=== PATIENT | male | born 1945 | race Caucasian/White ===

== ENCOUNTER → 2016-10-23 | Outpatient (CLI) | payer OTHER ==
[~2016-10-23] MED LIST: AMOX500C3 PO; ASPCH81X PO; ATOR-24 PO; CLOP1TAB15 PO; ERGO500037 PO; LSN/20125 PO; SIMV40TA2 PO
--- NOTE | 2016-10-23 17:11 | DIAGNOSTIC IMAGING REPORT ---
MRI OF THE LUMBAR SPINE WITHOUT IV CONTRAST CLINICAL HISTORY: Chronic low back pain with bilateral lower extremity radiculopathy. COMPARISON STUDY: CT angiogram of the abdomen and pelvis dated 12/29/2011. TECHNIQUE: MRI of the lumbar spine is performed utilizing various T1 and T2-weighted sequences in the axial and sagittal planes. IV contrast was not administered for this examination. FINDINGS: Lumbar spine: Vertebral body height is maintained throughout the lumbar spine. Marrow signal intensity is heterogeneous. Chronic degenerative endplate change is seen at all lumbar levels. There is mild degenerative endplate edema seen at L5-S1. There is minimal anterolisthesis at L4-L5 and minimal retrolisthesis at L5-S1. There is straightening of the lumbar lordosis. Small anterior osteophytes are noted throughout. The transverse and spinous processes appear intact. There is no evidence of spondylolysis. No destructive bony lesion is clearly seen. A small hemangioma is suggested in the body of L3. Intervertebral discs: There is degenerative disc desiccation throughout the lumbar spine. Advanced loss of height is seen at L5-S1. Mild to moderate loss of height is seen at the remaining lumbar levels. Spinal cord: The visualized spinal cord is normal in morphology and signal intensity. The conus medullaris terminates at the level of L1. There is severe tethering of the nerve roots of the cauda equina at L3-L4 and L4-L5. Fatty filum is incidentally noted. L1-L2: There is a posterior disc bulge. In conjunction with hypertrophy of the ligamentum flavum, this causes minimal acquired compromise of the central canal. The minimum AP diameter at this level measures 8.5 mm. There is bilateral subarticular stenosis. Facet arthropathy causes minimal bilateral neural foraminal stenosis. L2-L3: There is minimal posterior disc bulge eccentric to the left. In conjunction with hypertrophy of the ligamentum flavum, there is minimal acquired compromise of the central canal at this level with a minimum AP diameter of 8.5 mm. There is bilateral subarticular stenosis, left greater than right. There is likely impingement on the exiting left L2 nerve root. The neural foramina appear clear. L3-L4: There is posterior disc bulge and annular fissure. In conjunction with hypertrophy of the ligamentum flavum, this causes severe central canal stenosis at this level. The minimum AP canal diameter measures 4 mm. There is severe bilateral subarticular stenosis, with probable impingement on the exiting bilateral L3 and the transiting lumbar nerve roots. The cauda equina is tethered. There is mild to moderate neural foraminal stenosis secondary to facet arthropathy at this level. L4-L5: There is posterior disc bulge with annular fissure. In conjunction with hypertrophy of the ligamentum flavum, there is severe acquired compromise of the central canal at this level. The minimum AP diameter measures 4 mm. There is severe bilateral subarticular stenosis with impingement on the exiting bilateral L4 and the transiting bilateral nerve roots. The cauda equina is tethered at this level. There is mild neural foraminal stenosis secondary to facet arthropathy. L5-S1: There is minimal posterior disc bulge. There is no significant acquired compromise of the central canal at this level. There is bilateral subarticular stenosis, left greater than right, with possible impingement on the exiting bilateral nerve roots. Facet arthropathy causes moderate bilateral neural foraminal stenosis. Sacrum: Heterogeneous marrow signal intensity is noted throughout the sacrum. There is marrow edema identified within the sacral alae bilaterally. Insufficiency fractures are not excluded. Soft tissues: There is mild fatty atrophy of the paraspinous musculature. There is an infrarenal abdominal aortic aneurysm which measures up to 3.7 cm. This is likely similar to the 2012 CT angiogram of the abdomen and pelvis noting differences in technique. The partially imaged kidneys demonstrate cortical atrophy. IMPRESSION: 1. Multilevel lumbosacral spondylosis as detailed above. There is severe compromise of the central canal at L3-L4 and L4-L5 with tethering of the cauda equina at these levels. 2. See discussion for detailed [id number] analysis. 3. There is nonspecific marrow edema present within the sacral alae bilaterally. Insufficiency fractures are not excluded. Clinical correlation will be required. 4. An infrarenal abdominal aortic aneurysm measures at least 3.7 cm. This is likely similar to the 2012 CT angiogram of the abdomen and pelvis. 5. Additional changes as above. Dictated: 10/23/2016 4:18 PM Transcribed: 10/23/2016 5:10 PM [email or web address] Electronically signed by: Aj Wilson M.D. 10/23/2016 5:13 PM Dictated Date/Time: 10/23/2016 4:18 PM
== END | disposition home or self-care (01) ==
LOC: C.MRIBC 14:49
PROVIDERS: ATTEND Physician Assistant Medical
DX: M47.27 Other spondylosis with radiculopathy, lumbosacral region (principal); I71.4 Abdominal aortic aneurysm, without rupture

== ENCOUNTER 2017-06-17 11:16 | Observation (INO) | payer OTHER ==
[2017-05-28 13:15] VITALS: BMI 31.0
--- NOTE | 2017-05-28 13:40 | PAT Medication Instructions ---
Service Date May 28, 2017. Current Home Medication List Amoxicillin (Amoxil), 2,000 MG PO UD Aspirin (Aspirin Chewable), 81 MG PO QAM Atorvastatin (Lipitor), 40 MG PO QAM Clopidogrel (Plavix), 75 MG PO QPM Ergocalciferol (Vitamin D 78650 Unit), 50,000 UNIT PO MON Hctz/Lisinopril (Zestoretic 20MG/12.5MG), 1 TAB PO HS Medication Instructions For Your Scheduled Surgery Amoxicillin (Amoxil), 2,000 MG PO UD (prior to dental procedures) Ergocalciferol (Vitamin D 63945 Unit), 50,000 UNIT PO MON (continue as directed) - Check surgeon and vascular for instructions: Clopidogrel (Plavix), 75 MG PO QPM - Hold the following medications 24 hours prior to surgery: Hctz/Lisinopril (Zestoretic 20MG/12.5MG), 1 TAB PO HS - Take the following medications the morning of surgery with a sip of water: Atorvastatin (Lipitor), 40 MG PO QAM Aspirin (Aspirin Chewable), 81 MG PO QAM (okay to continue per surgeon) If you have any questions please call us at [phone] or [phone] or [phone]
--- NOTE | 2017-05-28 14:40 | DIAGNOSTIC IMAGING REPORT ---
CHEST 2 VIEWS ROUTINE HISTORY: 71 years-old Male pat preoperative exam. No acute chest complaints. COMPARISON: Chest CT 05/29/2016 TECHNIQUE: Frontal and lateral views of the chest FINDINGS: Moderate right hemidiaphragm elevation redemonstrated. Linear subsegmental opacities of the lung bases are unchanged suggesting areas of scarring/atelectasis. There is atherosclerosis of the aorta. No pneumothorax, pleural effusion or focal airspace consolidation. Reverse right shoulder arthroplasty noted. Endplate spurring is seen throughout the spine. IMPRESSION: No acute cardiopulmonary process. The above report was generated using voice recognition software. It may contain grammatical, syntax or spelling errors. Electronically signed by: Eber Bradshaw M.D. 05/28/2017 2:39 PM Dictated Date/Time: 05/28/2017 2:38 PM
[2017-05-28 14:49] LABS: BASO % 0.4 %; BASO ABS # 0.03 K/uL (0-0.2); COMPLETE YES; EOS % 2.5 %; HEMATOCRIT 43.9 % (42-52); IG% 0.3 %; LYMPH % 27.1 %; LYMPH ABS # 1.97 K/uL (1.2-3.4); MEAN CELL VOLUME 96.9 fL (80-100); MEAN CORPUSCULAR HEMOGLOBIN 32.5 pg (25-34); MEAN CORPUSCULAR HGB CONC 33.5 g/dl (32-36); MEAN PLATELET VOLUME 9.3 fL (7.4-10.4); MONO % 11.8 %; NEUT % 57.9 %; PLATELET COUNT 231 K/uL (130-400); RED BLOOD COUNT 4.53 M/uL (4.7-6.1); WHITE BLOOD COUNT 7.27 K/uL (4.8-10.8)
[2017-05-28 15:00] LABS: URINE APPEARANCE CLEAR (CLEAR); URINE BILIRUBIN NEG (NEG); URINE COLOR YELLOW; URINE NITRITE NEG (NEG); URINE PH 6.5 (4.5-7.5); URINE SPECIFIC GRAVITY 1.014 (1.000-1.030); UROBILINOGEN NEG (NEG)
[2017-05-28 15:01] LABS: PROTHROMBIN TIME (PATIENT) 11.2 SECONDS (9.0-12.0)
[2017-05-28 15:11] LABS: MANUAL MICROSCOPIC REQUIRED? NO; REVIEW REQ? NO
[2017-05-28 15:19] LABS: BUN/CREATININE RATIO 14.5 (10-20); CALCIUM 9.2 mg/dl (8.5-10.1); CREATININE 1.45 mg/dl (0.60-1.40); POTASSIUM 4.8 mmol/L (3.5-5.1)
--- NOTE | 2017-06-16 16:19 | HISTORY & PHYSICAL EXAMINATION ---
DATE OF ADMISSION: 06/17/2017 CHIEF COMPLAINT: He presents within intermittent low back pain, quadriceps pain with walking. PAST MEDICAL HISTORY: Hyperlipidemia and hypertension. PAST SURGICAL HISTORY: He has had bilateral shoulder surgery. ALLERGIES: He has no known drug allergies. CURRENT MEDICATIONS: Include Plavix, medication for cholesterol, blood pressure medication which are not listed. FAMILY MEDICAL HISTORY: Positive for heart disease, stroke, diabetes. SOCIAL HISTORY: He is , 1-2 drinks a day. No tobacco use. Moderately active lifestyle. REVIEW OF SYSTEMS: MUSCULOSKELETAL: Joint pain, muscle pain. ____ for bruising or bleeding. PHYSICAL EXAMINATION: He ambulates independently without any difficulty. He has no pain with straight leg raises bilaterally. He has blunted decreased reflexes of the knee jerk and Achilles reflexes bilaterally. Adequate sensation. No upper motor neuron issues. No clonus was noted in lower extremities. IMAGING: MRI shows significant spinal stenosis, likely congenital from L3 down S1. He has appropriate lordosis. No spondylolisthesis or spondylolisthesis noted. ASSESSMENT AND DIAGNOSES: Significant lumbar stenosis L3-S1. PLAN: At this time, we preoped him for laminectomy L3-L5. We discussed the surgery in detail. We discussed recovery time, risks and benefits. We did provide him with a lumbar back brace for support for postop. We provided him with pain medication postoperatively as well. We will follow him approximately 10-14 days postop for evaluation and suture removal. Anticipate he will be in [facility] for 24-48 hours postoperatively.
[2017-06-17] VITALS (8 sets, daily range): BP systolic 106–138; BP diastolic 70–87; PULSE 82–97; TEMP 36.4–36.6; O2SAT 94–96; Ht 175.3 cm; Wt 96.8 kg
[~2017-06-17] VITALS: Ht 175.3 cm; Wt 96.8 kg
[2017-06-17] MEDS: NSS 1000ML IV SCH ×3 (06:00→17:47)
[~2017-06-17 11:16] MED LIST changes: -SIMV40TA2 PO
[2017-06-17] MEDS ORDERED: DIPH-437 PO (12:08)
[2017-06-17] MEDS: LACTATED RINGER'S 1000ML 1,000 ML IV SCH ×2 (12:09→17:46)
[2017-06-17] MEDS ORDERED: LIDOCAINE HCL 2% 2 ML VIAL (20MG/ML) ONE (13:37)
[2017-06-17] MEDS ORDERED: LARYING-O-JET KIT (LTA) ONE ×2 (13:37)
[2017-06-17] MEDS ORDERED: ONDANSETRON INJ 2 MG/ML 2 ML VIAL ONE (13:37)
[2017-06-17] MEDS ORDERED: PHENYLEPHRINE 100MCG/ML 5ML SYR ONE (13:37)
[2017-06-17] MEDS ORDERED: CISATRACURIUM BESYLATE IV SOLN 2 MG/ML 10 ML VIAL ONE (13:37)
[2017-06-17] MEDS ORDERED: PROPOFOL IV EMULSION 10 MG/ML 20 ML VIAL IV ONE (13:37)
[2017-06-17] MEDS ORDERED: GLYCOPYRROLATE INJ 0.2 MG/ML VIAL ONE (13:37)
[2017-06-17] MEDS ORDERED: NEOSTIGMINE METHYLSULFATE 1 MG/ML 10ML VIAL ONE (13:37)
[2017-06-17] MEDS ORDERED: EpHEDrine SULFATE 50MG/5ML SYR ONE (13:37)
[2017-06-17] MEDS ORDERED: MIDAZOLAM HCL 1 MG/ML 2ML VIAL ONE (13:38)
[2017-06-17] MEDS ORDERED: FENTANYL CITRATE INJ 50 MCG/1 ML 2 ML VIAL ONE (13:38)
[2017-06-17] MEDS ORDERED: GELATIN SPONGE SZ 100 ONE ×2 (13:44→15:25)
[2017-06-17] MEDS ORDERED: THROMBIN FOR SOLN 20000 UNIT KIT ONE (13:44)
[2017-06-17] MEDS ORDERED: BUPIVACAINE/EPINEPHRINE 0.5% MPF 1:200,000 30 ML VIAL ONE (13:45)
[2017-06-17] MEDS ORDERED: VANCOMYCIN HCL 1000MG/20ML VIAL ONE (13:45)
[2017-06-17] MEDS ORDERED: BACITRACIN 50000 UNIT VIAL ONE (13:45)
--- NOTE | 2017-06-17 14:06 | History & Physical Bridge Note ---
H&P Re-Evaluation Bridge Note: I have examined the patient, reviewed the History & Physical and in the interval since the performance of the History & Physical I have noted the following changes of clinical significance: No changes noted
[2017-06-17] MEDS: CEFAZOLIN 2000MG IV PUSH 10 ML IV SCH ×3 (14:13→17:46)
[2017-06-17] MEDS ORDERED: HYDROmorphone INJ 2 MG/ML SYR/VIAL ONE (14:46)
[2017-06-17] MEDS ORDERED: ESMOLOL HCL 10 MG/ML 10 ML VIAL ONE (14:46)
[2017-06-17] MEDS ORDERED: HYDROmorphone INJ 1 MG/ML SYR IV PRN ×2 (15:15→16:15)
[2017-06-17] MEDS ORDERED: ONDANSETRON INJ 2 MG/ML 2 ML VIAL IV PRN ×2 (15:15→16:15)
[2017-06-17] MEDS ORDERED: ATROPINE SULFATE 0.1 MG/ML 5ML SYR IV PRN (15:15)
[2017-06-17] MEDS ORDERED: EpHEDrine SULFATE INJ 50 MG/ML AMP IV PRN (15:15)
--- NOTE | 2017-06-17 16:10 | DIAGNOSTIC IMAGING REPORT ---
INTRAOPERATIVE RADIOGRAPHS CLINICAL HISTORY: L3-L5 laminectomy. Fluoroscopy time: 3 seconds. FINDINGS: A single spot fluoroscopic view of the lumbar spine is presented. Surgical probes are seen posterior to the L3 and L5 vertebral bodies. IMPRESSION: Intraoperative image from lumbar spinal fusion surgery as above. Electronically signed by: Aj Wilson M.D. 06/17/2017 4:09 PM Dictated Date/Time: 06/17/2017 4:08 PM
--- NOTE | 2017-06-17 16:10 | [facility] Operative Report ---
Operative Report Operative Date Jun 17, 2017. Pre-Operative Diagnosis Significant lumbar stenosis L3-S1 Post-Operative Diagnosis Same as preoperative Procedure(s) Performed L3-L4, L4-L5 Laminectomy Surgeon Dr[address] Rob Pinto Human Resources Technician Surgeon(s) Oskar Nugent PA-C Estimated Blood Loss 150mL Findings stenosis Specimens none, Per Surgeon Complication(s) None Disposition Surgical ICU I attest to the content of the Intraoperative Record and any orders documented therein. Any exceptions are noted below.
[2017-06-17] MEDS ORDERED: MAGNESIUM HYDROXIDE SUSP 30 ML UDC PO PRN (16:15)
[2017-06-17] MEDS ORDERED: OXYCODONE/ACETAMINOPHEN 5-325 TAB PO PRN ×2 (16:15)
[2017-06-17] MEDS ORDERED: LORAZEPAM INJ 1 MG in SYRINGE 0 ML IV PRN (16:15)
[2017-06-17] MEDS ORDERED: ACETAMINOPHEN 325 MG TAB PO PRN (16:15)
[2017-06-17] MEDS ORDERED: LORAZEPAM 1 MG TAB PO PRN (16:15)
[2017-06-17] MEDS ORDERED: PROMETHAZINE HCL INJ 12.5 MG in SODIUM CHLORIDE 0.9% 50ML 50 ML IV PRN (16:15)
[2017-06-17] MEDS ORDERED: METOCLOPRAMIDE HCL INJ 5 MG/ML 2 ML VIAL IV PRN (16:15)
[2017-06-17] MEDS ORDERED: HYDROmorphone INJ 2 MG/ML SYR/VIAL IV PRN (16:15)
[2017-06-17] MEDS: FENTANYL CITRATE INJ 50 MCG/1 ML 2 ML VIAL IV PRN ×3 (16:24→16:34)
--- NOTE | 2017-06-17 16:49 | Anesthesiology Progress Note ---
Anesthesia Post Op Note Date & Time Jun 17, 2017 at 16:49 Vital Signs Pain Intensity: 3 Vital Signs Past 12 Hours Date Time Temp Pulse Resp B/P (MAP) Pulse Ox O2 Delivery O2 Flow Rate FiO2 06/17/17 16:45 92 14 91/72 95 Nasal Cannula 4 06/17/17 16:35 98 13 118/77 93 Nasal Cannula 4 06/17/17 16:25 97 17 103/62 98 Oxymask 10 06/17/17 16:15 95 17 99/62 99 Oxymask 10 06/17/17 16:08 36.6 94 12 99/56 95 Oxymask 10 06/17/17 11:47 36.5 97 22 138/87 (104) 94 Room Air Notes Mental Status: alert / awake / arousable, participated in evaluation Pt Amnestic to Procedure: Yes Nausea / Vomiting: adequately controlled Pain: adequately controlled Airway Patency, RR, SpO2: stable & adequate BP & HR: stable & adequate Hydration State: stable & adequate Anesthetic Complications: no major complications apparent
[2017-06-17 17:11] LABS: HEMATOCRIT 39.6 % (42-52)
--- NOTE | 2017-06-17 18:42 | OPERATIVE REPORT ---
DATE OF OPERATION: 06/17/2017 PREOPERATIVE DIAGNOSIS: Severe stenosis 3-5 lumbar spine. POSTOPERATIVE DIAGNOSIS: Same. PROCEDURE: Include laminectomy 3-5 lumbar spine with 3 level laminectomy L3, L4, L5 foraminotomies and partial facetectomy. SURGEON: Rob Pinto DO [employer] MACHINE OPERATOR: Oskar Nugent PA-C. COMPLICATIONS: Zero. BLOOD LOSS: 150-200 mL. DESCRIPTION OF PROCEDURE: The patient was taken to the operating room and general intubated anesthetic provided to the patient, placed prone, scrubbed, prepped and draped sterile. We made a skin incision, fascial incision, put in a deep self-retaining retractor. We got all bleeders under control. We decompressed the neural elements. First a laminectomy 5, 4 and 3, foraminotomies, partial facetectomies left side then right side. I thought that nerve roots were free of obstruction. I probed them, I visualized them and I was very pleased with the decompression aspect and there were no complications and there was no instability. We irrigated and closed over Hemovac drains in serial fashion, staple gun on the skin, 1 Vicryl deep layers over Hemovac drain and vancomycin powder. Sterile dressing applied. The patient returned to PACU improved, stable. No apparent complications. I attest to the content of the Intraoperative Record and any orders documented therein. Any exception s are noted below.
[2017-06-17] MEDS: SODIUM CHLORIDE 0.9% 1000ML 1,000 ML IV SCH (18:53)
[2017-06-17] MEDS: ACETAMINOPHEN IV 1,000 MG in EMPTY BAG 0 ML IV SCH (18:57)
[2017-06-17] MEDS: DEXAMETHASONE INJ 10 MG in SYRINGE 0 ML IV SCH (18:58)
[2017-06-17] MEDS ORDERED: COUGH DROP (SUGAR FREE) LOZ 24 LOZ/1 BOX PO PRN (20:15)
[2017-06-17] MEDS ORDERED: IV FLUIDS COMPLETED PRN (20:45)
[2017-06-17] MEDS: CEFAZOLIN IV 2,000 MG in SYRINGE 0 ML IV SCH (22:20)
[2017-06-17] MEDS ORDERED: NURSING VERBAL MED ORDER ONE ×2 (22:45→23:00)
[2017-06-18] VITALS (7 sets, daily range): BP systolic 130–150; BP diastolic 71–84; PULSE 75–89; TEMP 36.4–36.8; O2SAT 92–95
[2017-06-18] MEDS: ACETAMINOPHEN IV 1,000 MG in EMPTY BAG 0 ML IV SCH ×3 (01:31→19:09)
[2017-06-18] MEDS: DEXAMETHASONE INJ 10 MG in SYRINGE 0 ML IV SCH ×3 (01:36→19:09)
[2017-06-18] MEDS ORDERED: NURSING VERBAL MED ORDER ONE ×2 (02:15→13:30)
[2017-06-18] MEDS ORDERED: SODIUM CHLORIDE 0.9% 500ML 500 ML IV ONE (02:45)
[2017-06-18] MEDS: SODIUM CHLORIDE 0.9% 1000ML 1,000 ML IV SCH (03:06)
[2017-06-18] MEDS: CEFAZOLIN IV 2,000 MG in SYRINGE 0 ML IV SCH ×2 (05:41→13:23)
[2017-06-18] MEDS ORDERED: BISACODYL 5 MG TABEC PO PRN (06:00)
[2017-06-18] MEDS ORDERED: BISACODYL 10 MG SUPP PR PRN (06:00)
--- NOTE | 2017-06-18 08:35 | Anesthesiology Progress Note ---
Anesthesia Post Op Note Date & Time Jun 18, 2017 at 08:35 Vital Signs Pain Intensity: 0.0 Vital Signs Past 12 Hours Date Time Temp Pulse Resp B/P (MAP) Pulse Ox O2 Delivery O2 Flow Rate FiO2 06/18/17 08:06 95 Room Air 06/18/17 08:02 36.8 86 20 130/80 (97) 95 Room Air 06/18/17 07:10 Room Air 06/18/17 03:20 36.4 89 18 130/75 (93) 92 Room Air 06/17/17 23:15 96 Nasal Cannula 2.0 Humidified Oxygen 06/17/17 22:48 36.6 84 18 118/76 (90) 94 Nasal Cannula 2.0 Humidified Oxygen Notes Mental Status: alert / awake / arousable, participated in evaluation Pt Amnestic to Procedure: Yes Nausea / Vomiting: adequately controlled Pain: adequately controlled Airway Patency, RR, SpO2: stable & adequate BP & HR: stable & adequate Hydration State: stable & adequate Anesthetic Complications: no major complications apparent
[2017-06-18] MEDS: POLYETHYLENE (MIRALAX) 17 GM PACK PO SCH (08:49)
[2017-06-19] MEDS: DEXAMETHASONE INJ 10 MG in SYRINGE 0 ML IV SCH (02:01)
[2017-06-19] MEDS: ACETAMINOPHEN IV 1,000 MG in EMPTY BAG 0 ML IV SCH ×3 (02:01→10:44)
[2017-06-19 06:51] VITALS: BP 120/67; PULSE 78; TEMP 36.5; O2SAT 92
[2017-06-19] MEDS ORDERED: NURSING VERBAL MED ORDER ONE ×2 (07:15→11:00)
[2017-06-19 08:00] VITALS: O2SAT 92
[2017-06-19] MEDS ORDERED: OXYC-57 PO ×2 (08:54)
--- NOTE | 2017-06-19 08:56 | Discharge Instructions ---
Discharge Instructions Date of Service Jun 19, 2017. Admission Reason for Admission: Lumbar Spinal Stenosis Discharge Discharge Diagnosis / Problem: same Discharge Goals Goal(s): Improve function Activity Recommendations Activity Limitations: as noted below Lifting Limitations: gradually increase as tolerated Exercise/Sports Limitations: until after follow-up appointment May Resume Sexual Activity: after follow-up appointment Shower/Bathe: keep incision dry . Instructions / Follow-Up Instructions / Follow-Up MEDICATIONS: Please take your prescriptions as instructed at your pre-op appointment. SPECIAL CARE: The following information is intended to answer some of the common questions and concerns regarding your surgery. Each patient is an individual and receives individual counselling throughout the course of treatment, from diagnosis to surgery all the way through recovery. What follows is not an exhaustive list, but should be a useful guide to some of the common questions and concerns patients have regarding their surgeries. These are not provided to keep you from calling us; rather, they give you something accurate and concrete to reference as you recover from your procedure. If you need us, we are available to you. As always, if you are not sure about something, call us at [phone]. MEDICAL EMERGENCIES: For these conditions, call 911 or go to your local hospital-based Emergency Department - not [facility] or equivalent. * Paralysis * Severe chest pain or difficulty breathing * Swelling or redness of either leg Spine procedures can be rather complex and though complications are rare, they do occur. In such cases, effective advice regarding emergency situations cannot always be addressed over the telephone. You may be referred to the emergency department for more effective management of your problem. Activity Limitations: It is important to give your body time to heal, so please limit your activities : * In general, don't do anything that moves your spine too much. You should avoid contact sports, twisting or heavy lifting while you recover. * 5-10 pounds is all you should attempt to lift. * You should not plan on driving for approximately 3 weeks and you should avoid traveling more than 30-45 minutes at a time. Longer trips should be broken down with walking breaks spaced appropriately. * Physical therapy is not usually required. * Walking and good posture practices will help you recover and regain your function. * Avoid straining or sudden changes in position. * In general, the goal is to take it easy and recover. Don't cause any new problems. Just relax. Showers: * Do not take a bath, use a Jacuzzi or hot tub or otherwise submerge your incision. * It is usually safe to take a shower 4-5 days after your surgery. * Your incision does not require any special creams or ointments. * Simply clean it with soap and water, dry and re-dress with a clean bandage afterwards. Incision: * Keep incision clean, dry and protected until your first follow-up appointment. * Some amount of drainage and redness is normal. Any drainage should be fairly clear and not have a foul odor. * If you feel anything is wrong or you have excessive drainage, please call us. * Your stitches and leandro will be removed 10-14 days after your surgery. At the time of your first post-op visit. * Neck surgeries are typically closed with a suture underneath the skin. The steri-strips over the incision should be maintained until we see you in the office. Bracing: * You may be provided with a back or neck brace to encourage good posture and prevent injury. It will remind you not to do too much as you heal and will alert others to the fact that you have had a surgery. * Back braces may be removed for showers and when you are resting at home. They must be worn when you are walking around for any period of time or for travel. * For neck surgery, you will likely be provided with two cervical collars. The soft collar ([place] or foam rubber) is worn most commonly throughout the day and while sleeping. The plastic collar (provided at the hospital) is for showering/bathing. * Except while eating, collars should remain in place. More specifically, bracing is provided for a purpose and should be worn. * Please obtain your brace or collars prior to your operation and bring them to the hospital with you on the day of surgery. * You should also bring your collars to your post-op appointment with Dr. Pinto. You should always take good care of your body and practice healthy habits, especially following surgery. You should: * Follow your doctor's treatment plan * Sit and stand properly with good posture (ears over shoulders, shoulders over hips) Don't slouch * Learn to lift correctly * Exercise regularly (low-impact aerobic exercise is especially good, but check with your doctor first) * Generally, be up and walking for 5-10 minutes at a time at least 3-4 times per day from the day you get home * Increasing walking to tolerance until you can walk for 20-30 minutes at a time * Attain and maintain a healthy body weight * Eat healthy foods ( a well-balanced, low-fat diet rich in fruits and vegetables) and get enough calcium * Avoid excessive use of alcohol When to call our office - If you notice any of the following: * Increased pain not relieve by pain medicine * Fevers greater then 100 degrees F, chills or flu symptoms * Increased redness around incision * Drainage from the incision that is not clear * Any foul smelling drainage * Swelling or fluid collection beneath the skin Miscellaneous: * In the hospital, you may be given a walker or cane for support while walking. These are temporary needs and are intended to prevent injuries due to falls. You may discontinue them when you feel strong and steady enough on your feet. * Sleep in a comfortable position. We find that many patients find a lounge chair or recliner with several pillows to be beneficial in the early post-operative period. * The support stockings should be used for 7-10 days and may be discontinued when you are back to walking more and conducting usual household activities. No problem is insignificant. We are here to help you and get you well. Contact us at [phone]. Definitions: Foraminotomy: If part of the disc or a bone spur (osteophyte) is pressing on a nerve as it leaves the vertebra (through an exit called the foramen), a foraminotomy may be done. Otomy means "to make an opening." A foraminotomy is making the opening of the foramen larger, so the nerve can exit without being compressed. Laminotomy: Similar to the foraminotomy, a laminotomy makes a larger opening, this time in your bony plate protecting your spinal canal and spinal cord (the lamina). The lamina may be pressing on your nerve, so the surgeon may make more room for the nerves using a laminotomy. Laminectomy: Sometimes, a laminotomy is not sufficient. The surgeon may need to remove all or part of the lamina. This procedure is called a laminectomy. This can often be done at many levels without any harmful effects. Current Hospital Diet Patient's current hospital diet: Regular Diet Discharge Diet Recommended Diet: Regular Diet Procedures Procedures Performed: L3-L4, L4-L5 Laminectomy Pending Studies Studies pending at discharge: no Medical Emergencies . Who to Call and When: Medical Emergencies: If at any time you feel your situation is an emergency, please call 911 immediately. . Non-Emergent Contact Non-Emergency issues call your: Surgeon . "Provider Documentation" section prepared by Rob Pinto. . VTE Core Measure Inpt VTE Proph given/why not?: Treatment not indicated
--- NOTE | 2017-06-19 09:05 | DISCHARGE SUMMARY ---
SUBJECTIVE: He is improved, stable. He is now about 36 hours post-surgery, doing well. Alert, oriented, no chest pain or shortness of breath, no confusion. OBJECTIVE: Vital signs stable. Wound clean. Neurologically intact. Passed physical therapy. ASSESSMENT: Status post lumbar spine decompression, doing well. DISPOSITION: We will discharge him home later on this morning, change his dressing. He has instructions and precautions. He has prescription on his chart and back brace is provided as well. He does not need a walker.
[2017-06-19] MEDS: POLYETHYLENE (MIRALAX) 17 GM PACK PO SCH (09:10)
[2017-06-19 10:30] VITALS: BP 120/67; PULSE 78; TEMP 36.5; O2SAT 92
[2017-06-19] MEDS ORDERED: ACETAMINOPHEN 500 MG TAB PO SCH (11:30)
== END 2017-06-19 12:00 | disposition home or self-care (01) ==
LOC: C.ACU 11:16 → C.3E 14:00 → CANRESERV 16:39 → ENRESERV 16:39
PROVIDERS: ADMIT Orthopaedic Surgery Orthopaedic Surgery of the Spine; ATTEND Orthopaedic Surgery Orthopaedic Surgery of the Spine
DX: M48.061 Spinal stenosis, lumbar region without neurogenic claudication (principal); I12.9 Hypertensive chronic kidney disease with stage 1 through stage 4 chronic kidney disease, or unspecified chronic kidney disease; I73.9 Peripheral vascular disease, unspecified; N18.3 Chronic kidney disease, stage 3 (moderate); E78.5 Hyperlipidemia, unspecified; E66.9 Obesity, unspecified; Z68.31 Body mass index [BMI] 31.0-31.9, adult; Z98.890 Other specified postprocedural states; J44.9 Chronic obstructive pulmonary disease, unspecified; Z79.02 Long term (current) use of antithrombotics/antiplatelets; Z82.49 Family history of ischemic heart disease and other diseases of the circulatory system; Z82.3 Family history of stroke; Z83.3 Family history of diabetes mellitus

== ENCOUNTER 2024-09-13 09:44 | Inpatient (IN) ==
[2024-09-13 10:22] LABS: Base Excess VBG 0 mEq/L; HCO3 VBG 28 mmol/L; Oxygen Saturation VBG 73.1 %; PCO2 VBG 56 mmHg (38-50); PO2 VBG 45 mmHg
--- NOTE | 2024-09-13 10:25 | XRay Report ---
XR chest 1V portable CLINICAL HISTORY: Chest pain, nonspecific COMPARISON STUDY: None FINDINGS: There is moderate cardiomegaly with mild pulmonary vascular congestion. There is mild eleva tion of the right hemidiaphragm. There is reticular and patchy opacity in the lung bases. No pneumoth orax. IMPRESSION: 1. CHF. 2. Pneumonia versus atelectasis in the lung bases. ACT 112: Negative or not required by law. Electronically signed by: Cristiano Ramirez M.D. 09/13/2024 10:23 AM
[2024-09-13 10:28] LABS: iSTAT Creatinine 1.3 mg/dl (0.6-1.3); iSTAT Hemoglobin 15.3 g/dl (14.0-18.0); iSTAT Ionized Calcium 1.15 mmol/l (1.12-1.32); iSTAT Potassium 4.6 mmol/L (3.3-5.0)
--- NOTE | 2024-09-13 10:30 | Emergency Department Note ---
Impression & Plan Acute respiratory failure with hypoxia and hypercapnia, CAP (community acquired pneumonia), Acute bronchitis, CHF (congestive heart failure) ED Provider Note NAME: KEMI RICH AGE: 78 SEX: M : 1945 ARRIVES VIA: Walk-In INFORMANT: Patient ED PROVIDER(S): Chai Forbes MD CHIEF COMPLAINT: Cough congestion, shortness of breath PLAN: Disposition: Admit MEDICAL DECISION MAKING: The patient is a pleasant 78-year-old gentleman with a past medical history of hypertension, hyperlipidemia, PAD who presents to the emergency department via walk-in, by his for worsening shortness of breath over the past couple weeks with cough congestion that became more severe over the past 48 hours and last night. Patient's reports that he could not catch his breath at all throughout the night and this morning. He reports being up thick sputum. He denies nausea, vomiting or diarrhea. He reports constant chest tightness but denies chest pain. He denies urinary symptoms. He reports he does have chronic swelling in his legs for years that improves with elevation and rest. In retrospect the patient feels that the swelling has likely worsened over the past couple weeks. Patient reports a remote history of smoking but denies history of asthma or COPD. On my evaluation the patient is in mild respiratory distress with O2 saturation down to the mid 70s with ambulation improving to the mid 90s with 4 L nasal cannula but still with increased work of breathing. Heart rate is in the 90s and blood pressure 140s/60s. He appears hypervolemic. He exhibits wheezes and rhonchi of bilateral mid to lower lung costa. EKG demonstrates normal sinus rhythm with left bundle branch block without Sgarbossa criteria. Chest x-ray demonstrates venous congestion with suspected bibasilar opacities consistent with pneumonia per my preliminary independent interpretation. WBC 11K with neutrophilia but no left shift. H/H within normal limits. Platelets within normal limits. VBG with pH of 7.3 with pCO2 of 56 consistent with the patient's bronchospasm on exam. Chemistry without metabolic acidosis. Bicarbonate is normal and so no evidence of chronic hypercapnia. LFTs unremarkable. Initial HS troponin 27.6, nonspecific. BNP 445 consistent with patient's hypervolemia. Procalcitonin is not elevated. UA without evidence of infection. Respiratory BioFire was negative. CTA of the chest was negative for PE. Trace pulmonary edema is present. Atelectasis versus pneumonia is described in bilateral lung bases. Patient was treated with hour-long DuoNeb, Solu-Medrol and guaifenesin as well as BiPAP for acute respiratory failure with hypoxia and hypercapnia. Suspect respiratory failure likely multifactorial including component of CHF, bronchitis/bronchospasm and pneumonia. Treatment for CAP initiated with ceftriaxone and doxycycline. Patient's respiratory status did improve with BiPAP and was weaned to nasal cannula. Case was discussed with Isis Ontiveros PAC with Dr. Escalera, [facility] hospitalist, who will evaluate the patient for admission. Further management per admitting team. Triage Nursing notes reviewed and agree them. Prior/external medical records reviewed Vital Signs: reviewed Differential diagnosis: Reactive airway disease, pneumonia, pneumothorax, COPD, CHF, infections, cardiac ischemia, pulmonary embolism, musculoskeletal, gastrointestinal, as well as other pathologies. ER treatment provided: See below. Diagnostics interpreted by me: ECG: Normal sinus rhythm, 89 bpm, left bundle branch block, no sgarbossa criteria. QTc 493, QRS 156. Cardiac Monitoring: An order for continuous cardiac monitoring was placed and demonstrated normal sinus rhythm, 89 bpm, PACs. Laboratory studies: See below Imaging studies: See below Consultation(s): Case was discussed with Isis Ontiveros with Dr. Escalera [facility], who will evaluate the patient for admission. HPI: The patient is a pleasant 78-year-old gentleman with a past medical history of hypertension, hyperlipidemia, PAD who presents to the emergency department via walk-in, by his for worsening shortness of breath over the past couple weeks with cough congestion that became more severe over the past 48 hours and last night. Patient's reports that he could not catch his breath at all throughout the night and this morning. He reports being up thick sputum. He denies nausea, vomiting or diarrhea. He reports constant chest tightness but denies chest pain. He denies urinary symptoms. He reports he does have chronic swelling in his legs for years that improves with elevation and rest. In retrospect the patient feels that the swelling has likely worsened over the past couple weeks. Patient reports a remote history of smoking but denies history of asthma or COPD. ROS: See above HPI for pertinent positives & negatives. A total of 10 systems reviewed and were otherwise negative. VITALS:See Below PHYSICAL EXAMINATION: GENERAL: Awake, alert, mild respiratory distress. BMI 29.3. HENT: Normocephalic, atraumatic. Oropharynx unremarkable. EYES: Normal conjunctiva. Sclera non-icteric. NECK: Supple. No nuchal rigidity. FROM. No JVD. RESPIRATORY: Wheezes and rhonchi of bilateral mid to lower lung costa. Mild increased work of breathing. CARDIAC: Regular rate, normal rhythm. Extremities warm and well perfused. Pulses equal. ABDOMEN: Soft, non-distended. No tenderness to palpation. No rebound or guarding. No masses. MUSCULOSKELETAL: Chest examination reveals no tenderness. The back is symmetrical on inspection without obvious abnormality. There is no CVA tenderness to palpation. No joint edema. LOWER EXTREMITIES: 1+ bilateral lower extremity pitting edema with right slightly greater than left which is the patient's baseline in the setting of prior right lower extremity bypass per his report. NEURO: Normal sensorium. No sensory or motor deficits noted. SKIN: No rash or jaundice noted. ED COURSE: Critical Care: I have personally spent greater than 35 minutes of critical care time in the direct management of this patient. This includes bedside care, interpretation of diagnostic studies, and testing, discussion with consultants, patient, and family members, and other required patient management activities. This 35 minutes is in excess of all separately billable procedures. 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 Pinto 2017 H/O thumb surgery History of shoulder surgery H/O vascular surgery Family History Other Diabetes Stroke Social History Smoking Status: Former smoker Tobacco Type: Cigarettes Smoking End Date: 60 pack years, quit in 1996; Hx Alcohol Use: Yes Alcohol type: beer Hx Substance Use: No Preferred Language: Grenadian Communication Ability: Effective Visual Impairment: Limited Hearing Ability: Normal Clothes Wringer Required: No Beliefs That Will Affect Care: None marital status: marital status details: Has 5 children Current Living Situation: Spouse current occupational status: retired Other Information That Helps Us Care for You: No Feels Safe at Home: Yes Safety Concerns: Feels Safe At This Time Assistive Devices: None Allergies Allergies Allergy/AdvReac Type Severity Reaction Status Date / Time No Known Allergies Allergy Verified 09/13/24 13:01 Home Meds Home Medications Medication Instructions Recorded Confirmed allopurinol 300 mg tablet 300 mg PO DAILY 10/25/18 09/13/24 acetaminophen 650 mg 650 mg PO Q8H PRN Pain 11/22/18 09/13/24 tablet,extended release (Tylenol Arthritis Pain) aspirin 81 mg tablet,delayed 81 mg PO DAILY 11/22/18 09/13/24 release clopidogrel 75 mg tablet (Plavix) 75 mg PO HS 11/22/18 09/13/24 lisinopril 20 1 tab PO DAILY 11/22/18 09/13/24 mg-hydrochlorothiazide 12.5 mg tablet (Zestoretic) amlodipine 10 mg tablet 10 mg PO DAILY 03/31/24 09/13/24 propranolol 10 mg tablet 10 mg PO DAILY PRN Tremors 03/31/24 09/13/24 famotidine 20 mg tablet 20 mg PO BID 09/13/24 09/13/24 rosuvastatin 40 mg tablet 40 mg PO DAILY 09/13/24 09/13/24 Results & Data (ED) Vital Signs Vital Signs - 24 hr 09/13/24 11:00 09/13/24 11:09 09/13/24 11:12 Temperature Temperature Source Pulse Rate 81 81 Pulse Rate [Apical] Pulse Rate from SpO2 Sensor 81 82 Respiratory Rate 20 22 Respiratory Effort / Characteristics Respiratory Depth Respiratory Pattern Blood Pressure 126/86 Blood Pressure [Left Arm] Blood Pressure Mean 100 Blood Pressure Mean [Left Arm] Pulse Oximetry 98 98 Oxygen Delivery Method Oxygen Flow Rate Fraction of Inspired Oxygen SaO2/FiO2 Ratio 09/13/24 11:18 09/13/24 11:30 09/13/24 11:30 Temperature Temperature Source Pulse Rate 41 L Pulse Rate [Apical] Pulse Rate from SpO2 Sensor 53 L Respiratory Rate 17 Respiratory Effort / Characteristics Respiratory Depth Respiratory Pattern Blood Pressure 132/80 132/80 Blood Pressure [Left Arm] Blood Pressure Mean 110 110 Blood Pressure Mean [Left Arm] Pulse Oximetry 98 Oxygen Delivery Method Oxygen Flow Rate Fraction of Inspired Oxygen SaO2/FiO2 Ratio 09/13/24 11:30 09/13/24 11:33 09/13/24 12:00 Temperature 36.9 C Temperature Source Oral Pulse Rate 84 Pulse Rate [Apical] 86 Pulse Rate from SpO2 Sensor 84 Respiratory Rate 20 20 Respiratory Effort / Characteristics Spontaneous Respiratory Depth Normal Respiratory Pattern Regular Blood Pressure 132/80 Blood Pressure [Left Arm] 124/76 Blood Pressure Mean 110 Blood Pressure Mean [Left Arm] 92 Pulse Oximetry 97 99 Oxygen Delivery Method BiPAP Oxygen Flow Rate 4 Fraction of Inspired Oxygen 30 SaO2/FiO2 Ratio 330 09/13/24 12:00 09/13/24 12:00 09/13/24 12:03 Temperature Temperature Source Pulse Rate 86 Pulse Rate [Apical] Pulse Rate from SpO2 Sensor 86 Respiratory Rate 23 Respiratory Effort / Characteristics Respiratory Depth Respiratory Pattern Blood Pressure 127/74 127/74 Blood Pressure [Left Arm] Blood Pressure Mean 96 96 Blood Pressure Mean [Left Arm] Pulse Oximetry 95 Oxygen Delivery Method Oxygen Flow Rate Fraction of Inspired Oxygen SaO2/FiO2 Ratio 09/13/24 12:12 09/13/24 12:21 09/13/24 13:09 Temperature Temperature Source Pulse Rate 86 89 91 H Pulse Rate [Apical] Pulse Rate from SpO2 Sensor 86 89 90 Respiratory Rate 18 23 30 H Respiratory Effort / Characteristics Respiratory Depth Respiratory Pattern Blood Pressure Blood Pressure [Left Arm] Blood Pressure Mean Blood Pressure Mean [Left Arm] Pulse Oximetry 96 94 92 Oxygen Delivery Method Oxygen Flow Rate Fraction of Inspired Oxygen SaO2/FiO2 Ratio 09/13/24 13:12 09/13/24 13:18 09/13/24 13:27 Temperature Temperature Source Pulse Rate 78 89 Pulse Rate [Apical] Pulse Rate from SpO2 Sensor 87 Respiratory Rate 19 17 Respiratory Effort / Characteristics Respiratory Depth Respiratory Pattern Blood Pressure Blood Pressure [Left Arm] Blood Pressure Mean Blood Pressure Mean [Left Arm] Pulse Oximetry 94 92 Oxygen Delivery Method Nasal Cannula Oxygen Flow Rate 4 Fraction of Inspired Oxygen SaO2/FiO2 Ratio 09/13/24 13:40 09/13/24 13:40 Temperature Temperature Source Pulse Rate Pulse Rate [Apical] Pulse Rate from SpO2 Sensor Respiratory Rate Respiratory Effort / Characteristics Respiratory Depth Respiratory Pattern Blood Pressure 124/78 124/78 Blood Pressure [Left Arm] Blood Pressure Mean 85 85 Blood Pressure Mean [Left Arm] Pulse Oximetry Oxygen Delivery Method Oxygen Flow Rate Fraction of Inspired Oxygen SaO2/FiO2 Ratio Laboratory Data Attestation: I reviewed the patient's lab results. 09/14/24 06:02 09/14/24 06:02 Lab Results 09/13/24 09/13/24 09/13/24 Range/Units 10:10 10:15 12:19 WBC 11.13 H (4.8-10.8) K/ul RBC 4.68 L (4.70-6.10) M/uL Hgb 14.5 (14.0-18.0) g/dl POC Hgb 15.3 (14.0-18.0) g/dl Hct 45.3 (42.0-52.0) % POC Hct 45 (42-52) % MCV 96.8 (80.0-100.0) fL MCH 31.0 (25.0-34.0) pg MCHC 32.0 (32.0-36.0) g/dL RDW Std Deviation 49.5 H (36.4-46.3) fL RDW Coeff of Jasson 14.1 (11.5-14.5) % Plt Count 227 (130-400) K/uL MPV 9.1 L (9.4-12.4) fL Immature Gran % (Auto) 0.2 % Neut % (Auto) 83.0 % Lymph % (Auto) 7.1 % Moody % (Auto) 8.1 % Eos % (Auto) 1.1 % Baso % (Auto) 0.5 % Neut # (Auto) 9.24 H (1.40-6.50) K/uL Lymph # (Auto) 0.79 L (1.20-3.40) K/uL Moody # (Auto) 0.90 H (0.11-0.59) K/uL Eos # (Auto) 0.12 (0.00-0.50) K/uL Baso # (Auto) 0.06 (0.00-0.20) K/uL Immature Gran # (Auto) 0.02 (0.01-0.20) K/uL PT 11.0 (9.0-12.0) Seconds INR 1.0 (0.9-1.1) VBG pH 7.30 L (7.36-7.41) VBG pCO2 56 H (38-50) mmHg VBG pO2 45 mmHg VBG HCO3 28 mmol/L VBG O2 Saturation 73.1 % VBG Base Excess 0 mEq/L POC Sodium 140 (135-144) mmol/L Sodium 140 (136-145) mmol/L POC Potassium 4.6 (3.3-5.0) mmol/L Potassium 4.6 (3.5-5.1) mmol/L POC Chloride 106 (101-112) mmol/L Chloride 106 (98-107) mmol/L Carbon Dioxide 28 (21-32) mmol/L POC Total CO2 26 (24-31) mmol/L Anion Gap 6 (3-11) POC Anion Gap 14.0 L (16-25) mmol/L POC BUN 27 H (7-18) mg/dl BUN 27 H (6-23) mg/dl Creatinine 1.17 (0.6-1.4) mg/dl POC Creatinine 1.3 (0.6-1.3) mg/dl Est Cr Clr Drug Dosing 58.6 ml/min eGFR 63.81 BUN/Creatinine Ratio 23.1 H (10-20) Glucose 112 H (70-99(Fasting)) mg/dl POC Glucose (other) 114 H (70-99) mg/dl Calcium 9.4 (8.6-10.3) mg/dl POC Ioniz Calcium Bharath 1.15 (1.12-1.32) mmol/l Total Bilirubin 0.5 (0.2-1.0) mg/dl Direct Bilirubin 0.0 (0-0.2) mg/dl AST 13 (13-39) U/L ALT 10 (7-52) U/L Alkaline Phosphatase 108 H (34-104) U/L Troponin I High Sens 27.6 H 33.1 H (0-20) pg/ml B-Natriuretic Peptide 445 H (0-100) pg/ml Total Protein 7.7 (6.0-8.3) gm/dl Albumin 4.7 (3.4-5.0) gm/dl Globulin 3.0 (2.5-4.0) gm/dl Albumin/Globulin Ratio 1.6 (0.9-2) Lipase 39 (11-82) U/L Procalcitonin 0.10 (0-0.5) ng/ml Adenovirus (PCR) Not Detected (NotDetected) B. pertussis DNA (PCR) Not Detected (NotDetected) B.parapertussis DNA PCR Not Detected (NotDetected) C. pneumoniae DNA (PCR) Not Detected (NotDetected) Coronavirus OC43 (PCR) Not Detected (NotDetected) Coronavirus HKU1 (PCR) Not Detected (NotDetected) Coronavirus 229E (PCR) Not Detected (NotDetected) SARS-CoV-2 (PCR) Not Detected (NotDetected) Coronavirus NL63 (PCR) Not Detected (NotDetected) Human Metapneumovir PCR Not Detected (NotDetected) Influenza Type A (PCR) Not Detected (NotDetected) Influenza Type B (PCR) Not Detected (NotDetected) M. pneumoniae (PCR) Not Detected (NotDetected) Parainfluenza 1 (PCR) Not Detected (NotDetected) Parainfluenza 2 (PCR) Not Detected (NotDetected) Parainfluenza 3 (PCR) Not Detected (NotDetected) Parainfluenza 4 (PCR) Not Detected (NotDetected) RSV (PCR) Not Detected (NotDetected) Entero/Rhino (PCR) Not Detected (NotDetected) Administered Medications Albuterol (Albut/Ipratrop 3mg/0.5mg Neb 3 Ml Vial) 3 ml NEB QIDR [facility]; Protocol Stop: 10/14/24 09:29 Last Admin: 09/14/24 10:33 Dose: 3 ml Documented By: Admin: 09/14/24 10:33 Dose: Not Given Documented By: JOSE Allopurinol (Allopurinol 300 Mg Tab) 300 mg PO DAILY BRI Stop: 10/14/24 08:59 Last Admin: 09/14/24 08:33 Dose: 300 mg Documented By: OBI Amlodipine Besylate (Amlodipine Besylate 5 Mg Tab) 10 mg PO DAILY BRI Stop: 10/14/24 08:59 Last Admin: 09/14/24 08:33 Dose: 10 mg Documented By: OBI Aspirin (Aspirin 81 Mg Ectab) 81 mg PO DAILY BRI Stop: 10/14/24 08:59 Last Admin: 09/14/24 08:33 Dose: 81 mg Documented By: OBI Clopidogrel Bisulfate (Clopidogrel Bisulfate 75 Mg Tab) 75 mg PO HS BRI Stop: 10/13/24 20:59 Last Admin: 09/13/24 21:11 Dose: 75 mg Documented By: DANIELLE Doxycycline Hyclate (Doxycycline Hyclate 100 Mg Cap) 100 mg PO BID BRI Stop: 09/18/24 20:59 Last Admin: 09/14/24 08:33 Dose: 100 mg Documented By: Admin: 09/13/24 21:11 Dose: 100 mg Documented By: DANIELLE Enoxaparin Sodium (Enoxaparin Inj 40 Mg/0.4 Ml Syr) 40 mg SQ Q24H BRI Stop: 10/13/24 15:59 Last Admin: 09/13/24 16:45 Dose: 40 mg Documented By: OBI Famotidine (Famotidine 20 Mg Tab) 20 mg PO BID BRI Stop: 10/13/24 20:59 Last Admin: 09/14/24 08:35 Dose: 20 mg Documented By: Admin: 09/13/24 21:10 Dose: 20 mg Documented By: DANIELLE Insulin Aspart (Insulin Aspart Per Unit Charge) 0 units SC ACHS BRI Stop: 10/13/24 20:59 Last Admin: 09/14/24 08:34 Dose: Not Given Documented By: Admin: 09/13/24 21:10 Dose: 1 units Documented By: DANIELLE Co-signed By: CHIP Prednisone (Prednisone 50 Mg Tab) 50 mg PO DAILY BRI Stop: 10/14/24 09:29 Last Admin: 09/14/24 10:29 Dose: 50 mg Documented By: OBI Rosuvastatin Calcium (Rosuvastatin Calcium 20 Mg Tab) 40 mg PO HS BRI Stop: 10/13/24 21:29 Last Admin: 09/13/24 21:32 Dose: 40 mg Documented By: DANIELLE Sodium Chloride (Sodium Chlor 7% 4 Ml Neb) 4 ml NEB BIDR RBI Stop: 10/13/24 18:59 Last Admin: 09/14/24 07:05 Dose: 4 ml Documented By: Admin: 09/13/24 19:40 Dose: 4 ml Documented By: YRIS Discontinued Medications Albuterol (Albut/Ipratrop 3mg/0.5mg Neb 3 Ml Vial) 12 ml NEB ONE ONE; Protocol Stop: 09/13/24 10:28 Last Admin: 09/13/24 10:42 Dose: 12 ml Documented By: MERY Furosemide (Furosemide Inj 20 Mg/2 Ml Vial) 20 mg IV NOW STA Stop: 09/13/24 13:20 Last Admin: 09/13/24 13:52 Dose: 20 mg Documented By: FROYLAN Furosemide (Furosemide Inj 20 Mg/2 Ml Vial) 20 mg IV ONE ONE Stop: 09/13/24 15:16 Last Admin: 09/13/24 16:42 Dose: 20 mg Documented By: OBI Guaifenesin (Guaifenesin 600 Mg Tabcr) 1,200 mg PO NOW STA Stop: 09/13/24 10:29 Last Admin: 09/13/24 13:51 Dose: 1,200 mg Documented By: FROYLAN Guaifenesin (Guaifenesin 600 Mg Tabcr) Confirm Administered Dose 1,200 mg PO .STK-MED ONE Stop: 09/13/24 13:43 Last Admin: 09/13/24 13:55 Dose: Not Given Documented By: FROYLAN Guaifenesin (Guaifenesin 600 Mg Tabcr) 600 mg PO Q12 BRI Stop: 10/13/24 20:59 Last Admin: 09/14/24 08:33 Dose: 600 mg Documented By: Admin: 09/13/24 21:11 Dose: 600 mg Documented By: DANIELLE Ceftriaxone Sodium (Rocephin) 2,000 mg in 50 mls @ 100 mls/hr IV NOW STA Stop: 09/13/24 14:05 Last Infusion: 09/13/24 16:50 Dose: Infused Documented By: Admin: 09/13/24 13:51 Dose: 100 mls/hr Documented By: FROYLAN Doxycycline Hyclate 100 mg/ (Dextrose) 100 mls @ 50 mls/hr IV NOW STA Stop: 09/13/24 15:35 Last Infusion: 09/13/24 17:47 Dose: Infused Documented By: Admin: 09/13/24 15:35 Dose: 50 mls/hr Documented By: OBI Cefepime HCl (Maxipime 2000mg) 2,000 mg in 20 mls @ 5 mls/min IV Q12H BRI; Protocol Stop: 09/18/24 15:29 Last Admin: 09/14/24 04:13 Dose: 5 mls/min Documented By: Admin: 09/13/24 16:42 Dose: 5 mls/min Documented By: OBI Ioversol (Optiray 320 125ml) 120 ml IV ONCE ONE Stop: 09/13/24 12:39 Last Admin: 09/13/24 12:38 Dose: 120 ml Documented By: BLAKE Ipratropium Maben (Ipratropium Maben Neb Soln 0.02% 0.5mg/2.5ml Vial) 0.5 mg NEB Q6R BRI Stop: 10/13/24 18:59 Last Admin: 09/14/24 07:05 Dose: 0.5 mg Documented By: Admin: 09/14/24 00:23 Dose: 0.5 mg Documented By: Admin: 09/13/24 19:40 Dose: 0.5 mg Documented By: YRIS Levalbuterol HCl (Levalbuterol 1.25 Mg/3 Ml Neb) 1.25 mg NEB Q6R BRI Stop: 10/13/24 18:59 Last Admin: 09/14/24 07:05 Dose: 1.25 mg Documented By: Admin: 09/14/24 00:23 Dose: 1.25 mg Documented By: Admin: 09/13/24 19:40 Dose: Not Given Documented By: YRIS Methylprednisolone (Methylprednisolone 125 Mg/2 Ml Vial) 125 mg IV NOW STA Stop: 09/13/24 10:28 Last Admin: 09/13/24 11:00 Dose: 125 mg Documented By: MMG Imaging Data Radiologist's Impression: Chest X-Ray 09/13/24 10:07 XR chest 1V portable CLINICAL HISTORY: Chest pain, nonspecific COMPARISON STUDY: None FINDINGS: There is moderate cardiomegaly with mild pulmonary vascular congestion. There is mild elevation of the right hemidiaphragm. There is reticular and patchy opacity in the lung bases. No pneumothorax. IMPRESSION: 1. CHF. 2. Pneumonia versus atelectasis in the lung bases. ACT 112: Negative or not required by law. Electronically signed by: Cristiano Ramirez M.D. 09/13/2024 10:23 AM Chest CTA 09/13/24 11:00 CT angio chest PE protocol CT DOSE: 861.78 mGy.cm HISTORY: acute resp fail, elevated bnp and trop, r/o PE. TECHNIQUE: Multiple CTA images of the chest were obtained after the intravenous administration of 120 ml Optiray. Coronal and sagittal MIPS were obtained from the axial data set and were submitted for review. All measurements were obtained according to NASCET criteria. A dose lowering technique was utilized adhering to the principles of ALARA. COMPARISON STUDY: None FINDINGS: There is cardiomegaly with prominence of the pulmonary vasculature consistent with CHF. There is minimal septal thickening in the lungs consistent with trace pulmonary edema. There is mild stranding consolidation in the dependent lung bases, atelectasis versus early pneumonia. No pleural effusion or pneumothorax. There is minimal mediastinal adenopathy, likely reactive. No pericardial effusion. There are diffuse coronary artery and aortic calcifications. No thoracic aortic aneurysm or dissection. No pulmonary embolism. There is moderate elevation of the right hemidiaphragm. There are diffuse thoracic spine degenerative changes. IMPRESSION: 1. No pulmonary embolism. 2. CHF with trace pulmonary edema. 3. Atelectasis versus early pneumonia in the lung bases. No significant pleural effusion. ACT 112: Negative or not required by law. The above report was generated using voice recognition software. It may contain grammatical, syntax or spelling errors. Electronically signed by: Cristiano Ramirez M.D. 09/13/2024 12:58 PM Discharge Plan Visit Data Chief Complaint: Shortness of Breath/Dyspnea Stated Complaint: SOB/COULD CATCH BREATH LAST NIGHT ED Provider: Chai Forbes Discharge Problem: Acute respiratory failure with hypoxia and hypercapnia, CAP (community acquired pneumonia), Acute bronchitis, CHF (congestive heart failure) Patient Disposition: Admitted As Inpatient Discharge Instructions Interventions: ED Discharge Assessment Last Done: 09/13/24 14:58 Discharge Problem: CAP (community acquired pneumonia) Qualifiers: Laterality: unspecified laterality Qualified Code(s): J18.9 - Pneumonia, unspecified organism Acute bronchitis Qualifiers: Bronchitis organism: unspecified organism Qualified Code(s): J20.9 - Acute bronchitis, unspecified CHF (congestive heart failure) Qualifiers: Heart failure type: unspecified Heart failure chronicity: acute Qualified Code(s): I50.9 - Heart failure, unspecified
[2024-09-13 10:36] LABS: Basophils # (auto) 0.06 K/uL (0.00-0.20); Basophils % (auto) 0.5 %; Eosinophils # (auto) 0.12 K/uL (0.00-0.50); Eosinophils % (auto) 1.1 %; Hematocrit (blood only) 45.3 % (42.0-52.0); Hemoglobin 14.5 g/dl (14.0-18.0); Immature Granulocytes # (auto) 0.02 K/uL (0.01-0.20); Immature Granulocytes % (auto) 0.2 %; Lymphocytes # (auto) 0.79 K/uL (1.20-3.40); Lymphocytes % (auto) 7.1 %; Mean Corpuscular Volume 96.8 fL (80.0-100.0); Mean Platelet Volume 9.1 fL (9.4-12.4); Monocytes % (auto) 8.1 %; Neutrophils # (auto) 9.24 K/uL (1.40-6.50); Platelet Count 227 K/uL (130-400); RDW Coefficient of Variation 14.1 % (11.5-14.5); RDW Standard Deviation 49.5 fL (36.4-46.3); Red Blood Count 4.68 M/uL (4.70-6.10); White Blood Count 11.13 K/ul (4.8-10.8)
[2024-09-13] MEDS: ALBUT/IPRATROP 3MG/0.5MG NEB 3 ML VIAL NEB ONE (10:42)
[2024-09-13 10:54] LABS: Albumin Globulin Ratio 1.6 (0.9-2); Albumin Level 4.7 gm/dl (3.4-5.0); BUN Creatinine Ratio 23.1 (10-20); Bilirubin,Total 0.5 mg/dl (0.2-1.0); Calcium 9.4 mg/dl (8.6-10.3); Creatinine Clr Calc Pharmacy 58.6 ml/min; Potassium 4.6 mmol/L (3.5-5.1); Total Protein 7.7 gm/dl (6.0-8.3)
[2024-09-13 10:58] LABS: Troponin I High Sensitivity 27.6 pg/ml (0-20)
[2024-09-13] MEDS: methylPREDNISolone 125 MG/2 ML VIAL IV STA (11:00)
[2024-09-13 11:37] LABS: Adenovirus PCR Not Detected (NotDetected); Bordetella parapertussis PCR Not Detected (NotDetected); Bordetella pertussis PCR Not Detected (NotDetected); Chlamydia pneumoniae PCR Not Detected (NotDetected); Coronavirus 229E PCR Not Detected (NotDetected); Coronavirus CoV-2 (COVID19)PCR Not Detected (NotDetected); Coronavirus HKU1 PCR Not Detected (NotDetected); Coronavirus NL63 PCR Not Detected (NotDetected); Coronavirus OC43PCR Not Detected (NotDetected); Human Metapneumovirus PCR Not Detected (NotDetected); Influenza A PCR Not Detected (NotDetected); Influenza B PCR Not Detected (NotDetected); Mycoplasma pneumoniae PCR Not Detected (NotDetected); Parainfluenza Virus 1 PCR Not Detected (NotDetected); Parainfluenza Virus 2 PCR Not Detected (NotDetected); Parainfluenza Virus 3 PCR Not Detected (NotDetected); Parainfluenza Virus 4 PCR Not Detected (NotDetected); Respiratory Syncytial VirusPCR Not Detected (NotDetected); Rhinovirus/Enterovirus PCR Not Detected (NotDetected)
[2024-09-13] MEDS: OPTIRAY 320 125ml IV ONE (12:38)
--- NOTE | 2024-09-13 13:00 | CT Scan Report ---
CT angio chest PE protocol CT DOSE: 861.78 mGy.cm HISTORY: acute resp fail, elevated bnp and trop, r/o PE. TECHNIQUE: Multiple CTA images of the chest were obtained after the intravenous administration of 120 ml Optiray. Coronal and sagittal MIPS were obtained from the axial data set and were submitted for review. All measurements were obtained according to NASCET criteria. A dose lowering technique was u tilized adhering to the principles of ALARA. COMPARISON STUDY: None FINDINGS: There is cardiomegaly with prominence of the pulmonary vasculature consistent with CHF. The re is minimal septal thickening in the lungs consistent with trace pulmonary edema. There is mild str anding consolidation in the dependent lung bases, atelectasis versus early pneumonia. No pleural effu oumar or pneumothorax. There is minimal mediastinal adenopathy, likely reactive. No pericardial effusi on. There are diffuse coronary artery and aortic calcifications. No thoracic aortic aneurysm or disse ction. No pulmonary embolism. There is moderate elevation of the right hemidiaphragm. There are diffu se thoracic spine degenerative changes. IMPRESSION: 1. No pulmonary embolism. 2. CHF with trace pulmonary edema. 3. Atelectasis versus early pneumonia in the lung bases. No significant pleural effusion. ACT 112: Negative or not required by law. The above report was generated using voice recognition software. It may contain grammatical, syntax o r spelling errors. Electronically signed by: Cristiano Ramirez M.D. 09/13/2024 12:58 PM
--- NOTE | 2024-09-13 13:50 | History & Physical Report ---
Date of Service September 13, 2024 Assessment & Plan (1) Acute hypoxic respiratory failure: (2) Heart failure, diastolic, with acute decompensation: (3) CAP (community acquired pneumonia): (4) DM (diabetes mellitus), type 2: (5) Moderate aortic stenosis: (6) Smoking history: Plan This is a 78-year-old male with PMH of PVD with claudication, chronic left bundle branch block, diet-controlled DM II, hypertension, moderate aortic stenosis, CKD 3, essential tremor and other medical problems listed below who presents with increased shortness of breath over the past few weeks and found to have acute hypoxic respiratory failure in setting of decompensated HF and possible CAP. Acute hypoxic respiratory failure Hypoxic at 75% on room air with ambulation, transitioned to bipap and weaned to 4L NC O2 In setting of heart failure and PNA as below Not on home O2, wean as tolerated Acute decompensated diastolic heart failure Chest CTA with CHF with trace pulmonary edema. No pulmonary embolism ECG with NSR at 89 bpm, LAD, LBBB (chronic) BNP 445 HS troponin 27.6 ->33.1 Last 2D echo from Apr 2024 echo with preserved EF, moderate , mild pulm HTN Repeat echo, routine cardiac consult, trend cardiac enzymes, repeat labs and ECG in AM Given 20mg IV lasix in ED- will give another 20mg now Continue IV Lasix 40mg daily tomorrow Daily weights, I&Os Possible CAP vs complicated bronchitis Increased congestion, cough x 1 week No formal COPD dx but 60 year smoking history, quit in WBC 11K, procal WNL, resp viral panel negative CTA chest with atelectasis versus early pneumonia in the lung bases. No significant pleural effusion Continue coverage with cefepime, doxy for now Flutter valve, incentive spirometry, Duonebs, mucinex BID, hypertonic saline nebs Sputum culture Diet-controlled DM II A1c 6.5 in Mar 2024, repeat in AM Carb consistent diet SSI while in-patient BSG AC HS CKD III Cr 1.17 (baseline 1.2) Daily BMP PVD Stable. Continue aspirin, plavix, statin Asymptomatic AAA [facility]s [facility] 4.2 cm AAA by aortic duplex 10/08/2022. DVT Ppx: SQ lovenox Code status: FULL PCP: Leon Dispo: admitted to PCU Patient seen in collaboration with Dr. Escalera. Please see addendum. I spent a total of 75 minutes coordinating, documenting, and providing care for this patient excluding time spent in the performance of separately billed services or time spent by another provider/QHP. History of Present Illness Chief Complaint: Shortness of breath Primary Care Provider: Abhishek Quintero MD This is a 78-year-old male with PMH of PVD with claudication, chronic left bundle branch block, diet-controlled DM II, hypertension, moderate aortic stenosis, CKD 3, essential tremor and other medical problems listed below who presents with increased shortness of breath over the past few weeks and found to have acute hypoxic respiratory failure. Patient had noticed progressively worsening dyspnea on exertion over the past few months. Has still been able to go on his walks at the [employer] but has to sit on a bench every 250 feet. Over the past few nights, patient has been waking up during the night short of breath. Resolves when he sits up. States he is always had chronic lower extremity swelling after revascularization procedures for vascular disease but has noted increased swelling over the past week. is also noted patient has a wet sounding cough but unable to expectorate. Does have a 87-mohi-kwce history but has not smoked in over 20 years. Denies a formal diagnosis of COPD. Does not require oxygen at baseline. Does follow with [facility] cardiology for moderate aortic stenosis and peripheral vascular disease. Last underwent echo i n April 2024 with preserved EF of 55-59%, mildly abnormal left ventricular diastolic dysfunction, moderate aortic valve stenosis, mild pulmonary hypertension. Is compliant with medications. No recent F/C but has been more congested. No CP, palpitations, wheezing, N/V, abd pain, dysuria, diarrhea or constipation. Allergies Allergy/AdvReac Type Severity Reaction Status Date / Time No Known Allergies Allergy Verified 09/13/24 13:01 Home Medications Medication Instructions Recorded Confirmed Type allopurinol 300 mg tablet 300 mg PO DAILY 10/25/18 09/13/24 History acetaminophen 650 mg 650 mg PO Q8H PRN Pain 11/22/18 09/13/24 History tablet,extended release (Tylenol Arthritis Pain) aspirin 81 mg tablet,delayed 81 mg PO DAILY 11/22/18 09/13/24 History release clopidogrel 75 mg tablet (Plavix) 75 mg PO HS 11/22/18 09/13/24 History lisinopril 20 1 tab PO DAILY 11/22/18 09/13/24 History mg-hydrochlorothiazide 12.5 mg tablet (Zestoretic) amlodipine 10 mg tablet 10 mg PO DAILY 03/31/24 09/13/24 History propranolol 10 mg tablet 10 mg PO DAILY PRN Tremors 03/31/24 09/13/24 History famotidine 20 mg tablet 20 mg PO BID 09/13/24 09/13/24 History rosuvastatin 40 mg tablet 40 mg PO DAILY 09/13/24 09/13/24 History Past Med/Surg History Problem List (Updated 09/13/24 @ 15:02 by Carolyn Mcclelland PA-C) Heart failure, diastolic, with acute decompensation CAP (community acquired pneumonia) Acute hypoxic respiratory failure Lumbar facet joint pain 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 Physical Exam Physical Exam: General Appearance: WD/WN, vitals as above, NAD, sitting up at side of bed, some conversational dyspnea Head: normocephalic, atraumatic Eyes: normal inspection, PERRL, conjunctivae normal, anicteric sclerae ENT: external ear and nose normal, oropharynx normal Neck: normal visual inspection, trachea midline, no thyromegaly Respiratory: increased respiratory effort, bibasilar rales, no wheezing. No accessory muscle use Cardiovascular: regular rate, rhythm,+systolic murmur, normal peripheral pulses, 2-3+ BLE edema R>L. Vessels: + JVD Chest: normal inspection of chest Abdomen/GI: normal bowel sounds, soft, nontender, no hepatosplenomegaly Extremities/Musculoskeletal: no cyanosis or clubbing, extremities motor strength 5/5 Neurologic: PERRL, EOMI, accommodation nl, no face palsy, no dysarthria, CN's II-XI intact bilaterally and moves all extremities Psychiatric: A+Ox3, euthymic affect Skin: no rashes, normal color, warm/dry Results & Data Results & Data Vital Signs (Past 12 Hours) Vital Signs Temp Pulse Pulse Resp BP BP Pulse Ox 09/13/24 10:45 50 L 20 99 09/13/24 10:45 86 20 99 09/13/24 10:04 95 H 09/13/24 10:00 91 H 28 H 142/71 H 96 09/13/24 10:00 75 L 09/13/24 09:48 36.9 C 95 H 24 145/63 H 89 L O2 Del Method O2 Flow Rate FiO2 09/13/24 10:45 30 09/13/24 10:45 BiPAP 30 09/13/24 10:04 09/13/24 10:00 Nasal Cannula 4 09/13/24 10:00 Room Air 09/13/24 09:48 Room Air Laboratory Results Short CBC 09/13/24 Range/Units 10:10 WBC 11.13 H (4.8-10.8) K/ul Hgb 14.5 (14.0-18.0) g/dl Hct 45.3 (42.0-52.0) % Plt Count 227 (130-400) K/uL BMP 09/13/24 10:10 Sodium 140 Potassium 4.6 Chloride 106 Carbon Dioxide 28 BUN 27 H Creatinine 1.17 Glucose 112 H Calcium 9.4 Liver Function 09/13/24 Range/Units 10:10 Total Bilirubin 0.5 (0.2-1.0) mg/dl Direct Bilirubin 0.0 (0-0.2) mg/dl AST 13 (13-39) U/L ALT 10 (7-52) U/L Alkaline Phosphatase 108 H (34-104) U/L Albumin 4.7 (3.4-5.0) gm/dl Diagnostic Findings Chest X-Ray 09/13/24 10:07 XR chest 1V portable CLINICAL HISTORY: Chest pain, nonspecific COMPARISON STUDY: None FINDINGS: There is moderate cardiomegaly with mild pulmonary vascular congestion. There is mild elevation of the right hemidiaphragm. There is reticular and patchy opacity in the lung bases. No pneumothorax. IMPRESSION: 1. CHF. 2. Pneumonia versus atelectasis in the lung bases. ACT 112: Negative or not required by law. Electronically signed by: Cristiano Ramirez M.D. 09/13/2024 10:23 AM Chest CTA 09/13/24 11:00 CT angio chest PE protocol CT DOSE: 861.78 mGy.cm HISTORY: acute resp fail, elevated bnp and trop, r/o PE. TECHNIQUE: Multiple CTA images of the chest were obtained after the intravenous administration of 120 ml Optiray. Coronal and sagittal MIPS were obtained from the axial data set and were submitted for review. All measurements were obtained according to NASCET criteria. A dose lowering technique was utilized a dhering to the principles of ALARA. COMPARISON STUDY: None FINDINGS: There is cardiomegaly with prominence of the pulmonary vasculature consistent with CHF. There is minimal septal thickening in the lungs consistent with trace pulmonary edema. There is mild stranding consolidation in the dependent lung bases, atelectasis versus early pneumonia. No pleural effusion or pneumothorax. There is minimal mediastinal adenopathy, likely reactive. No pericardial effusion. There are diffuse coronary artery and aortic calcifications. No thoracic aortic aneurysm or dissection. No pulmonary embolism. There is moderate elevation of the right hemidiaphragm. There are diffuse thoracic spine degenerative changes. IMPRESSION: 1. No pulmonary embolism. 2. CHF with trace pulmonary edema. 3. Atelectasis versus early pneumonia in the lung bases. No significant pleural effusion. ACT 112: Negative or not required by law. The above report was generated using voice recognition software. It may contain grammatical, syntax or spelling errors. Electronically signed by: Cristiano Ramirez M.D. 09/13/2024 12:58 PM ECG Additional Comments: ECG with NSR at 89 bpm, LAD, LBBB (chronic) Code Status & VTE Plan VTE Prophylaxis Plan VTE Prophylaxis will be ordered: Yes Supervising Physician Co-Signing Physician Notes Attending Addendum: Case reviewed with the advanced practitioner. I have personally performed a history and physical examination on the patient. I have reviewed the advanced practitioner's documentation on the date of service referenced in note, and I agree with, and take responsibility for the plan of care. please refer to her notes for full details patient seen and examined, records reviewed by myself as well on exam, patient seen resting in bed, sitting up in bed, on 4L nasal cannula states he feels improved compared to admission breathing is improving still having productive cough, congestion no other symptoms VS noted and reviewed oriented x3, not in distress, speaks in sentences with no effort nor accessory muscle use normal rate, regular rhythm, no murmurs occasional crackles BL non distended, soft, nontender (+) grade 1 lower leg edema, erythema, warmth no neuro deficits all labs, imaging noted and reviewed ASSESSMENT AND PLAN> ACUTE HYPOXIC RESPIRATORY FAILURE SECONDARY TO BILATERAL PNEUMONIA, POSSIBLE AC [place] CHF (NEW DIAGNOSIS) HISTORY OF SMOKING BNP 400s [employer]: negative CT Chest: 1. No pulmonary embolism. 2. CHF with trace pulmonary edema. 3. Atelectasis versus early pneumonia in the lung bases. No significant pleural effusion. obtain sputum culture check MRSA swab Cefepime IV + Doxy Nebs QID, Hypertonic Saline, Mucinex, Flutter valve check echo Lasix IV daily other diagnoses and plan of care as per advanced practitioner's notes I spent a total of 35 minutes coordinating, documenting, and providing care for this patient, excluding time spent in the performance of separately billed services or time spent by another provider/QHP. Moe Escalera MD
[2024-09-13] MEDS: cefTRIAXone SODIUM 2,000 MG/50 ML BAG IV STA (13:51)
[2024-09-13] MEDS: guaiFENesin 600 MG TABCR PO STA (13:51)
[2024-09-13] MEDS: FUROSEMIDE INJ 20 MG/2 ML VIAL IV STA (13:52)
[2024-09-13] MEDS: guaiFENesin 600 MG TABCR PO ONE (13:55)
[2024-09-13] MEDS ORDERED: POLYETHYLENE (MIRALAX) 17 GM PACK PO PRN (14:33)
[2024-09-13] MEDS ORDERED: ONDANSETRON INJ 2 MG/ML 2 ML VIAL IV PRN (14:33)
[2024-09-13] MEDS ORDERED: ALBUT/IPRATROP 3MG/0.5MG NEB 3 ML VIAL NEB PRN (15:17)
[2024-09-13] MEDS: DOXYCYCLINE HYCLATE 100 MG in DEXTROSE 5% MINI-B 100 ML IV STA (15:35)
[2024-09-13] MEDS ORDERED: GLUCOSE 40% GEL 15 GM TUBE PO PRN (16:41)
[2024-09-13] MEDS ORDERED: CARBOHYDRATES FOR HYPOGLYCEMIA PO PRN (16:41)
[2024-09-13] MEDS ORDERED: GLUCAGON FOR INJ 1 MG VIAL SQ PRN (16:41)
[2024-09-13] MEDS ORDERED: DEXTROSE 50% 50 ML SYRINGE IV PRN (16:41)
[2024-09-13] MEDS ORDERED: GLUCOSE 10 TAB/TUBE PO PRN (16:41)
[2024-09-13] MEDS: FUROSEMIDE INJ 20 MG/2 ML VIAL IV ONE (16:42)
[2024-09-13] MEDS: CEFEPIME 2000MG 2,000 MG/20 ML SYR IV SCH (16:42)
[2024-09-13] MEDS: ENOXAPARIN INJ 40 MG/0.4 ML SYR SQ SCH (16:45)
--- OUTSIDE RECORDS SUMMARY | 2024-09-13 17:51 | External Medical Summary | Summary of Care ---
Author Name Unknown Organization [facility] Address [address] [place] [address] Phone [phone] Care Team Providers Care Window Glass Cutter Off Name Role Phone Abhishek Quintero MD Primary Care Provider + Reason for Visit * Reason Onset Date Comments Medication Refill Left Message 07/17/2024 Encounter Details Date Type Department Care Team (Late st Contact Info) Description 07/17/2024 Refill Neurology [facility] [address] [place] [address] Lavinia Mcmillan PA-C Allergies Active Allergy Reactions Criticality Noted Date Comments Pollen Other (Please comment) 05/24/2019 Watery eyes, runny nose Ragweed Other (Please comment) 05/24/2019 Watery eyes, runny nose documented as of this encounter (statuses as of 07/20/2024) Medications AMOXICILLIN 500 MG PO CAPS take 4 capsules by mouth 1 hour prior to dental appointment 0 06/15/20 14 Active Aspirin 81 MG Tablet Take 1 Tablet by mouth in the morning. 01/24/20 15 Active acetaminophen (TYLENOL) 500 MG Tablet Take 1 Tablet by mouth every 6 hours as needed for Pain or Fever. 100 Tab 09/24/19 19 Active Allopurinol 300 MG Oral Tablet (Zyloprim)Indica tions:Gouty arthritis Take 1 Tablet by mouth in the morning. 100 Tablet 3 06/05/2024 1:56 PM EST 11/23/19 24 Active Clopidogrel Bisulfate 75 MG Oral Tablet (pLAVix) Take 1 Tablet by mouth in the morning. 100 Tablet 3 04/29/2024 10:58 AM EDT 11/23/19 24 Active Famotidine 20 MG Oral Tablet (Pepcid) Take 1 Tablet by mouth in the morning and 1 Tablet before bedtime. 04/07/20 24 Active Rosuvastatin Calcium 40 MG Oral Tablet (Crestor)Indicat ions:Asymptomati c bilateral carotid artery stenosis,Hyperte nsion goal BP (blood pressure) < 140/90,Left bundle branch block,Nonrheumat ic aortic valve stenosis Take 1 Tablet by mouth in the morning. 100 Tablet 3 05/18/2024 10:36 AM EST 05/17/20 24 Active amLODIPine Besylate 10 MG Oral Tablet (Norvasc)Indicat ions:Benign hypertension with CKD (chronic kidney disease) stage III (HCC) Take 1 Tablet by mouth in the morning. 100 Tablet 2 06/29/2024 11:53 AM EST 06/29/20 24 Active Lisinopril-hydro CHLOROthiazide 20-12.5 MG Oral TabletIndication s:HTN, goal below 140/90 Take 1 Tablet by mouth in the morning. 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 09/22/2023 Chronic kidney disease, stage 3a 09/22/2023 Abdominal aortic aneurysm (AAA) without rupture 09/02/2022 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 08/16/2020 Mixed hyperlipidemia 08/05/2020 Mild mitral regurgitation by prior echocardiogra m 08/23/2019 Overview (08/23/2019): 2019 echo Moderate aortic stenosis 08/03/2019 DM type 2, goal HbA1c < 7.5% 05/24/2019 Asymptomatic bilateral carotid artery stenosis 0 02/15/2019 Essential tremor 02/15/2019 Diabetes mellitus type 2 with peripheral artery disease 10/13/2018 Steroid-induced diabetes 09/26/2018 Gout, tophaceous 03/31/2018 Chronic bilateral low back pain with left-sided sciatica 03/24/2018 Hypertension goal BP (blood pressure) < 140/90 0 03/22/2017 Diastolic dysfunction 06/20/2015 Peripheral vascular disease with claudication Left bundle branch block 10/09/2005 documented as of this encounter (statuses as of 07/20/2024) Resolved Problems Problem Noted Date Diagnosed Date Resolved Date Sacroiliitis, not elsewhere classified 09/02/2022 09/22/2023 Hypertension associated with stage 3a chronic kidney disease due to type 2 diabetes mellitus 09/02/2022 09/23/2022 Abdominal aortic aneurysm (A AA) without rupture 09/02/2022 09/02/2022 Abdominal aortic aneurysm (A AA) without rupture 09/02/2022 09/02/2022 Abdominal aortic aneurysm (A AA) without rupture 09/02/2022 09/02/2022 Tremor 02/03/2021 09/02/2022 Type 2 diabetes mellitus wit h stage 3 chronic kidney disease and hypertension 08/05/2020 03/08/20 23 Type 2 diabetes mellitus wit h stage 3 chronic kidney disease, without long-term current use of insulin 07/31/2019 03/08/2023 Elevated blood sugar 09/23/2018 019 Prediabetes 11/30/2017 10/13/2018 Overview: Per Prediabetes protocol #1 Superficial incisional surgi biju site infection 06/26/2015 03/22/2017 Kidney disease, chronic, sta ge III (GFR 30-59 ml/min) 02/11/2015 09/20/2017 Overview: Per CKD protocol #1 Gout 07/25/2014 09/23/2018 Overview (07/25/2014): Left 2nd toe. First attack May 2014. Uric acid 10.4 Carotid stenosis, non-symptomatic 03/26/2014 02/15/2019 Lumbago 05/24/2012 03/24/2018 ADVANCE DIRECTIVE INFORMATION 12/10/2011 09/20/2017 Overview (06/16/2005): Yes, Patient instructed to provide copy of advance directive for provider to review and to be scanned into Electronic Medical Record Monocytosis 11/13/2011 03/22/2017 Overview (11/13/2011): Elevated cbc repeat in 3 months Essential and other specified forms of tremor 10/15/19 12 03/22/2017 Dyslipidemia, goal LDL below 100 06/27/2009 03/07/2015 Overview (06/27/2009): Per Lipid Taxonomy. Abdominal aortic aneurysm 11/06/2008 Benign hypertension with CKD (chronic kidney disease) stage III 03/13/2008 03/08/2023 Benign neoplasm of colon 08/18/200605/2017 Overview (09/02/2006): repeat colonoscopy in 5 years Screening for prostate cancer 10/09/2005 09/19/2008 Overview (09/19/2008): Resolved per Screening Diagnosis Protocol #6 SCREEN MAL NEOP-RECTUM 10/09/200509/19 Overview (09/19/2008): Resolved per Screening Diagnosis Protocol #6 Dyslipidemia, goal to be determined 06/16/2005 06/27/2009 Overview (06/27/2009): Per Lipid Taxonomy. documented as of this encounter (statuses as of 07/20/2024) Immunizations Name Administration Dates Next Due COVID-19 mRNA, LNP-s, No Pre serve, 2-Dose Series (Moderna) 09/14/2020,08/10/2020 COVID-19, MRNA-LNP, 24-25, P R, 30MCG/0.3ML, IM, 12YRS AND ABOVE (Pfizer-Comirnaty) 04/24/2024 COVID-19, mRNA, LNP-s, PF, B ooster, 100mcg/0.5mg (Moderna) 06/19/2021 Pneumococcal Conjugate Vacc, 13 Valent (Prevnar) 03/07/2015 Pneumococcal Polysaccharide PPV23 (Pneumovax) 01/27/2011 RSV Vac., Recomb, Adjuvant, PF,0.5 Ml (Arexvy) 04/07/2024 Season Influenza, Quad, PF, Adjuvanted, 65+ Yrs, IM (FLUAD) 04/09/2020 Seasonal Influenza Vac., MDV , IM, 0.5 mL (Fluzone) 05/02/2014 Seasonal Influenza, High Dos e, Trivalent, PF, IM (Fluzone HD) 04/07/2024 Seasonal Influenza, PF, 6 M & above, IM , (FluLaval or Fluzone) 03/24/2018 Seasonal Influenza, Quadriva lent Hd (Fluzone Hd) 08/08/2021 Seasonal Influenza, Quadriva lent, No Preserve, IM 03/22/2017,06/15/2016,06/18/2015 Seasonal Influenza, Trivalen t, Adjuvanted, 65+ YRS, PF, (Fluad) 05/24/2019 TD, Preservative Free 02/01/2020 TDAP, Age 7 and older, IM (Adacel) 10/29/2009 Zoster Vaccine Recombinant (Shingrix) 07/07/2024 ,04/07/2024 documented as of this encounter Social History Tobacco Use Types Packs/Day Years Used Date Smoking Tobacco: Former Cigarettes 1.5 40 0 07/12/1956 - 07/12/1996 Smokeless Tobacco: Never Alcohol Use Standard Drinks/Week Comments Yes 0 (1 standard drink = 0.6 oz pur e alcohol) 4 beers 3 x week PHQ-2 Answer Date Recorded PHQ Adult Total Score 0 03/08/2023 Hunger Vital Sign Answer Date Recorded Worried About Running Out of Food in the Last Ye ar Never true 05/24/2019 Ran Out of Food in the Last Year Never true 05/24/2019 Sex and Gender Information Value Date Recorded Sex Assigned at Male 02/15/2019 3:48 PM EDT Legal Sex Male 7:10 AM EST Gender Identity Male 02/15/2019 3:48 PM EDT Sexual Orientation Straight 02/15/2019 3: 48 PM EDT 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 Answer Date of Assessment Author No 07/15/2015 4:39 PM Phylicia Harrison RN * Are you blind or do you have serious difficulty seeing, even when wearing glasses? Answer Date of Assessment Author No 07/15/2015 4:39 PM Phylicia Harrison RN * Do you have serious difficulty walking or climbing stairs? (5 years old or older) Answer Date of Assessment Author No 07/15/2015 4:39 PM Blanca Harrison RN * Do you have difficulty dressing or bathing? (5 years old or older) Answer Date of Assessment Author No 07/15/2015 4:39 PM Phylicia Harrison RN * Because of a physical, mental, or emotional condition, do you have difficulty doing errands alone such as visiting a doctors office or shopping? (15 years old or older) Answer Date of Assessment Author No 07/15/2015 4:39 PM Phylicia Harrison RN documented as of this encounter Mental Status * Because of a physical, mental, or emotional condition, do you have serious difficulty concentrating, remembering, or making decisions? (5 years old or older) Answer Entry Date Author No 07/15/2015 4:39 PM Phylicia Harrison RN documented in this encounter Miscellaneous Notes * Telephone Encounter - Andrea Carbajal MD - 07/20/2024 12:30 PM ESTSigned Prescriptions: Disp Refills Propranolol HCl 10 MG Oral Tablet (Inderal)90 Tab*2 Sig: take 1 tablet by mouth 30 MINUTES PRIOR TO EVENT, UP TO 3 TABLETS DAILY Authorizing Provider: ANDREA CARBAJAL * Telephone Encounter - Homa Gorman, MED ASSIST - 07/20/2024 9:39 AM EST Pending Prescriptions: Disp Refills Propranolol HCl 10 MG Oral Tablet (Inderal)90 Tab*2 Sig: take 1 tablet by mouth 30 MINUTES PRIOR TO EVENT, UP TO 3 TABLETS DAILY * Telephone Encounter - Gisele Noguera CPhT - 07/19/2024 3:41 PM ESTPending Prescriptions: Disp Refills Propranolol HCl 10 MG Oral Tablet (Inderal)90 Tab*2 Sig: take 1 tablet by mouth 30 MINUTES PRIOR TO EVENT, UP TO 3 TABLETS DAILY * Telephone Encounter - Gisele Noguera CPhT - 07/19/2024 3:41 PM EST Received message from [facility] regarding patient needing an appointment. Call Placed, Left message on voicemail to call back and schedule appointment. Thank you, Gisele Noguera CPhT [employer] [facility] [address] [place] [address], [address] [place] [address] MC [id number] * Telephone Encounter - Joseph Reed [facility] - 07/19/2024 12:52 PM ESTPending Prescriptions: Disp Refills Propranolol HCl 10 MG Oral Tablet (Inderal)90 Tab*2 Sig: take 1 tablet by mouth 30 MINUTES PRIOR TO EVENT, UP TO 3 TABLETS DAILY * Telephone Encounter - Joseph Reed RP - 07/19/2024 12:47 PM EST Attempt 2 Please contact patient so that an appointment can be scheduled with his NEUROLOGY provider before this refill can be authorized. After contacting patient, please [place] [phone]. Last Visit: 02/01/2023 (in office), Visit date not found (telemedicine) Next Visit: Visit date not found ThanksJoseph, PharmD Clinical Pharmacist [facility] [phone] 07/19/2024,12:49 PM documented in this encounter Plan of Treatment Upcoming Encounters Date Type Department Care Team (Late st Contact Info) Description 11/21/2024 2:30 PM EDT Office Visit Urology, [facility] [address] [place] [address] Simeon Hillman MD [address] [place] [address] 01/04/2025 2:00 PM EDT Office Visit General Internal Medicine [facility] [address] [place] [address] Abhishek Quintero MD [address] [facility] [place] [address] 05/08/2025 9:30 AM EDT Cardiac Studies Cardiac Studies, [facility] [address] [place] [address] Scheduled Procedures Name Priority Associated Diagnoses Date/Ti me COLONOSCOPY FLEXIBLE PROXIMAL DIAGNOSTIC Recall Screen for colon cancer Health Maintenance Due Date Last Done Comments Adult Wellness Visit 12/30/2011 Colonoscopy 07/25/2017 07/25/2012, 07/12, 08/18/2006 Depression Screening 03/08/2024 03/08/2023 COVID-19 Vaccine ( season) 2024 04/24/2024, 06/19/2021, 09/14/2020, Additional history exists Albumin/Creatinine Ratio 09/28/2024 024, 09/02/2022, 08/13/2021, Additional history exists CKD HGB USE SMARTSET 27723 09/28/202409/28, 09/29/2023, 09/02/2022, Additional history exists GFR 10/05/2024 04/07/2024, 032 , 03/08/2023, Additional history exists HbA1c 10/05/2024 04/07/2024, 032 , 03/08/2023, Additional history exists Diabetic Eye Exam 12/09/2024 12/10/2023, , 06/15/2022, Additional history exists CKD PHOS USE SMARTSET 94497 04/07/2025 09/2 01/2024, 09/29/2023, 09/02/2022, Additional history exists Diabetic Foot Exam 04/07/2025 04/07/2024, 0 03/08/2023, 02/18/2022, Additional history exists DTap/Tdap Vaccines (3 - Td or Tdap) 01/31/2030 02/01/2020, 10/29/2009 RETIRED - COLONOSCOPY-EVERY 5 YRS AGES 18-100 Discontinued 07/25/2012, 07/25/2012, 08/18/2006 Pneumococcal Vaccine: 50+ Years Completed 03/07/2015, 01/27/2011 Influenza Vaccine (FLU shot) Completed 04/07/2024, 08/08/2021, 04/09/2020, Additional history exists Zoster Vaccines Completed 07/07/2024, 04/07/2024 HPV (Gardasil) Vaccine Aged Out No lo nger eligible based on patient's age to complete this topic Hepatitis B Vaccine Aged Out No longe r eligible based on patient's age to complete this topic MENINGOCOCCAL (MENACTRA/MENVEO) Aged Out No longer eligible based on patient's age to complete this topic documented as of this encounter Medical Devices Implanted Type Area Trimmer Climber Device Identifier Shelf Expiration Date Model / Serial / Lot Graft Karley Mejial [id number] - [id number] - [id number] Implanted:Qty: 1 on 03/22/2015 by Andrea Gerard MD at OR [facility] [place] Right: Femoral Artery CR BARD : PERIPHERAL VASCULAR 12/09/2017 [id number] / [id number] / Stent Viab [id number] - [id number] Implanted:Qty: 1 on 03/22/2015 by Andrea Gerard MD at OR [facility] [place] [place] Right: Femoral Artery [employer] 09/08/2016 [id number] / / [id number] Patch Xenosure [id number] - [id number] Implanted:Qty: 1 on 06/11/2015 by Andrea Gerard MD at OR [facility] Left: Femoral Artery [employer] 10/10/2017 E0.8P8 / / [id number] Description:tt Mx60 Iol Implanted:Qty: 1 on 02/22/2018 by Kris Hillman MD at OR [facility] Left: Eye [employer]OM[employer] 10/09/2020 MX60 / [id number] / [id number] Mx60e +22.00d Iol Implanted:Qty: 1 on 03/01/2018 by Kris Hillman MD at OR [facility] Right: Eye BAUSCH [employer] LOMB 09/08/2020 MX60E+22.0 0D / [id number] / [id number] documented as of this encounter Advance Directives * Full Code (Latest Code Status on File) Date Activated Date Inactivated Comments 03/01/2018 11:39 AM 03/01/2018 5:49 PM This order reflects the patients wishes and were consensually agreed upon. * Full Code Date Activated Date Inactivated Comments 02/22/2018 1:54 PM 02/22/2018 8:01 PM This order r eflects the patients wishes and were consensually agreed upon. * Full Code Date Activated Date Inactivated Comments 07/15/2015 2:58 PM 07/19/2015 5:44 PM Question Answer Comments Discussion of Advance Directives occurred with: Not Discussed Does the patient have a Living Will? No Does the patient have Health Care Power of Attor kendal? No * Full Code Date Activated Date Inactivated Comments 06/24/2015 11:39 PM 06/27/2015 5:30 PM Question Answer Comments Discussion of Advance Directives occurred with: Not Discussed Does the patient have a Living Will? No Does the patient have Health Care Power of Attor kendal? No * Full Code Date Activated Date Inactivated Comments 06/11/2015 5:16 PM 06/13/2015 6:04 PM This order r eflects the patients wishes and were consensually agreed upon. Question Answer Comments Discussion of Advance Directives occurred with: Not Discussed Does the patient have a Living Will? No Does the patient have Health Care Power of Attor kendal? No Care Teams Window Glass Cutter Off Relationship Specialty Start Date End Date Abhishek Quintero MD [address] [place] [address] PCP - General Internal Medicine 01/01/12 documented as of this encounter
--- OUTSIDE RECORDS SUMMARY | 2024-09-13 17:51 | External Medical Summary | Summary of Care ---
Author Name Unknown Organization [facility] Address [address] [place] [address] Phone [phone] Care Team Providers Care Director Of Community Life Name Role Phone Abhishek Kang MD Primary Care Provider + Reason for Visit * Reason Comments Medication Refill Encounter Details Date Type Department Care Team (Late st Contact Info) Description 07/17/2024 Refill General Internal Medicine [facility] [address] [facility] [place] [address] Abhishek Kang MD [address] [place] [address] HTN, goal below 140/90 Allergies Active Allergy Reactions Criticality Noted Date Comments Pollen Other (Please comment) 05/24/2019 Watery eyes, runny nose Ragweed Other (Please comment) 05/24/2019 Watery eyes, runny nose documented as of this encounter (statuses as of 07/18/2024) Medications AMOXICILLIN 500 MG PO CAPS take 4 capsules by mouth 1 hour prior to dental appointment 0 06/15/20 14 Active Aspirin 81 MG Tablet Take 1 Tablet by mouth in the morning. 01/24/20 15 Active acetaminophen (TYLENOL) 500 MG Tablet Take 1 Tablet by mouth every 6 hours as needed for Pain or Fever. 100 Tab 09/24/19 19 Active Propranolol HCl 10 MG Oral Tablet (Inderal) take 1 tablet by mouth 30 MINUTES PRIOR TO EVENT, UP TO 3 TABLETS DAILY 90 Tablet 2 04/20/2024 10:32 AM EDT 10/23/19 24 Active Allopurinol 300 MG Oral Tablet (Zyloprim)Indica [...] morning. 90 Tablet 1 07/18/19 25 Active Lisinopril-hydro CHLOROthiazide 20-12.5 MG Oral TabletIndication s:HTN, goal below 140/90 Take 1 Tablet by mouth in the morning. 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 Not [...] Phylicia Harrison RN * Do you have difficulty [...] encounter Miscellaneous Notes * Telephone Encounter - Gurwinder Sadler [facility] - 07/18/2024 12:08 PM ESTSigned Prescriptions: Disp Refills Lisinopril-hydroCHLOROthiazide 20-12.5 MG *90 Tab*1 Sig: Take 1 Tablet by mouth in the morning.Authorizing Provider: ABHISHEK KANG User: GURWINDER SADLER documented in this encounter Plan of Treatment Upcoming Encounters Date Type Department Care Team (Late st Contact Info) Description 11/21/2024 2:30 PM EDT Office Visit Urology, [facility] [address] [place] [address] Simeon Hillman MD [address] [place] [address] 01/04/2025 2:00 PM EDT Office Visit General Internal Medicine [facility] [address] [facility] [place] [address] Abhishek Kang MD [address] [facility] [place] [address] 05/08/2025 9:30 AM EDT Cardiac Studies Cardiac Studies, [facility] [address] [place] [address] Scheduled Procedures Name Priority Associated Diagnoses Date/Ti me COLONOSCOPY FLEXIBLE PROXIMAL DIAGNOSTIC Recall Screen for colon cancer Health Maintenance Due Date Last Done Comments Adult Wellness Visit 12/30/2011 Colonoscopy 07/25/2017 07/25/2012, 07/12, 08/18/2006 Depression Screening 03/08/2024 03/08/2023 COVID-19 Vaccine ( season) 2024 04/24/2024, 06/19/2021, 09/14/2020, Additional history exists Albumin/Creatinine Ratio 09/28/2024 024, 09/02/2022, 08/13/2021, Additional history exists CKD HGB USE SMARTSET 93836 09/28/202409/28, 09/29/2023, 09/02/2022, Additional history exists GFR 10/05/2024 04/07/2024, 09/10, 03/08/2023, Additional history exists HbA1c 10/05/2024 04/07/2024, 09/10, 03/08/2023, Additional history exists Diabetic Eye Exam 12/09/2024 12/10/2023, , 06/15/2022, Additional history exists CKD PHOS USE SMARTSET 91375 04/07/202503/13, 09/29/2023, 09/02/2022, Additional history exists Diabetic Foot [...] this encounter Medical Devices Implanted Type Area Director Of Aviation Device Identifier Shelf Expiration Date Model / Serial / Lot Graft Impra Thinwall [id number] - [id number] - [id number] Implanted:Qty: 1 on 03/22/2015 by Rob Gerard MD at OR [facility] [place] Right: Femoral Artery CR BARD : PERIPHERAL VASCULAR 12/09/2017 [id number] / [id number] / Stent Viab [id number] - [id number] Implanted:Qty: 1 on 03/22/2015 by Rob Gerard MD at OR [facility] [place] Right: Femoral Artery [employer] 09/08/2016 [id number] / / [id number] Patch Xenosure [id number] - [id number] Implanted:Qty: 1 on 06/11/2015 by Rob Gerard MD at OR [facility] [place] Left: Femoral Artery [employer] 10/10/2017 E0.8P8 / / [id number] Description:tt Mx60 Iol Implanted:Qty: 1 on 02/22/2018 by Kris Hillman MD at OR [facility] Left: Eye [employer] 10/09/2020 MX60 / [id number] / [id number] Mx60e +22.00d Iol Implanted:Qty: 1 on 03/01/2018 by Kris Hillman MD at OR [facility] Right: Eye [employer]USCH [employer] LOMB 09/08/2020 MX60E+22.0 0D / [id number] / [id number] documented as of this encounter Visit Diagnoses Diagnosis HTN, goal below 140/90 Unspecified essential hypertension documented in this encounter Advance Directives * Full Code [...] Power of Attor kendal? No Care Teams Director Of Community Life Relationship Specialty Start Date End Date Abhishek Kang MD [address] [place] [address] PCP - General Internal Medicine 01/01/12 documented as of this encounter
--- OUTSIDE RECORDS SUMMARY | 2024-09-13 17:51 | External Medical Summary | Summary of Care ---
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 01/24/20 15 Active acetaminophen (TYLENOL) 500 MG Tablet Take 1 Tablet by mouth every 6 hours as needed for Pain or Fever. 100 Tab 09/24/19 19 Active Lisinopril-hydro CHLOROthiazide 20-12.5 MG Oral TabletIndication s:HTN, goal below 140/90 Take 1 Tablet by mouth in the morning. 90 Tablet 2 04/20/2024 10:32 AM EDT 08/03/19 24 Active Propranolol HCl 10 MG Oral Tablet [...] 04/29/2024 10:58 AM EDT 11/23/19 24 Active Terbinafine HCl 250 MG Oral Tablet (Lamisil) Take 1 tablet by mouth every day with a meal for 84 days, for toenail and foot fungus. 84 Tablet 04/07/2024 10:31 AM EDT 03/24/20 24 Active Famotidine 20 MG Oral Tablet [...] mouth in the morning. 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 08/16/2020 Mixed hyperlipidemia 08/05/2020 Mild mitral regurgitation by prior echocardiogra m 08/23/2019 Overview (08/23/2019): 2020 echo Moderate aortic stenosis 08/03/2019 DM type [...] as of this encounter (statuses as of 06/29/2024) Resolved Problems Problem Noted Date Diagnosed Date [...] chronic kidney disease and hypertension 08/05/2020 03/08/20 Type 2 diabetes mellitus wit h stage [...] as of this encounter (statuses as of 06/29/2024) Immunizations Name Administration Dates Next Due COVID-19 mRNA, LNP-s, No Pre serve, 2-Dose Series (Moderna) 09/14/2020,08/10/2020 COVID-19, MRNA-LNP, 24-25, P R, 30MCG/0.3ML, IM, 12YRS AND ABOVE (Multispectral Imaging-Comirnaty) 04/24/2024 COVID-19, mRNA, LNP-s, PF, B ooster, [...] IM (Adacel) 10/29/2009 Zoster Vaccine Recombinant (Shingrix) 04/07/2024 documented as of this encounter Social History [...] 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 Authorizing Provider: ABHISHEK KANG Ordering User: ARNOL SMITH * [facility]24 10:40 AM ESTSigned Prescriptions: Disp Refills amLODIPine Besylate 10 MG Oral Tablet (Nor*100 Ta*2 Sig: Take 1 Tablet by mouth in the morning. Authorizing Provider: ABHISHEK KANG Ordering User: ARNOL SMITH * Telephone Encounter - Joseph Venegas, [facility] - 06/29/2024 10:27 AM EST Pt almost out of medication. Did you pend patient's preferred pharmacy and medication before forwarding?yes Pharmacy: [facility] Pending Prescriptions: Disp Refills amLODIPine Besylate 10 MG Oral Tablet (No*90 Tab*2 Sig: Take 1 Tablet by mouth in the morning. Last Visit: 04/07/2024 (in office), Visit date not found (telemedicine) Next Visit: 01/04/2025 If no future appointments scheduled, and last appointment is greater than a year ago, please schedule patient for a follow-up appointment Last date the medication was ordered: 08/18/2023 Is this request for a controlled substance?No Urine Drug Screen:No results found for this or any previous visit. Patient Phone Numbers Labs: Lab Results Component Value Date/Time CREAT 1.2 04/07/2024 10:07 AM CREAT 1.3 (H) 08/05/2020 10:25 AM POTASSIUM 4.9 04/07/2024 10:07 AM POTASSIUM 4.9 08/05/2020 10:25 AM TSH 1.00 03/08/2023 03:04 PM TSH 1.37 02/20/2014 07:32 AM LDL 79 09/29/2023 10:02 AM LDL 73 08/05/2020 10:25 AM LDL 52 01/30/2020 08:37 AM ALT 34 04/07/2024 10:07 AM ALT 35 08/05/2020 10:25 AM HGBA1C 6.5 (H) 04/07/2024 10:07 AM HGBA1C 5.7 (H) 08/05/2020 10:25 AM documented in this encounter Plan of Treatment Upcoming Encounters Date Type Department Care Team (Late st Contact Info) Description 07/07/2024 10:00 AM EST Nurse Only Ancillary [facility] [address] [place] [address] Nurse, Int Med [address] [place] [address] 11/21/2024 2:30 PM EDT Office Visit Urology, [facility] [address] [facility] [place] [place] [address] Simeon Hillman MD [address] [place] [address] 01/04/2025 2:00 PM EDT Office Visit General Internal Medicine [facility] [place] [address] [place] [address] Abhishek Kang MD [address] [place] [address] 05/08/2025 9:30 AM EDT Cardiac Studies Cardiac Studies, [facility] [address] [facility] [place] [address] Scheduled Procedures Name Priority Associated Diagnoses Date/Ti me COLONOSCOPY FLEXIBLE PROXIMAL DIAGNOSTIC Recall Screen for colon cancer Health Maintenance Due Date Last Done Comments Adult Wellness Visit 12/30/2011 Colonoscopy 07/25/2017 07/25/2012, 07/12, 08/18/2006 Depression Screening 03/08/2024 03/08/2023 Zoster Vaccines (2 of 2) 06/02/2024 04/07/2024 COVID-19 Vaccine ( season) 2024 04/24/2024, 06/19/2021, 09/14/2020, Additional history exists Albumin/Creatinine Ratio 09/28/2024 024, 09/02/2022, 08/13/2021, Additional history exists CKD HGB USE SMARTSET 00891 09/28/202409/28, 09/29/2023, 09/02/2022, Additional history exists GFR 10/05/2024 04/07/2024, 03/2 , 03/08/2023, Additional history exists HbA1c 10/05/2024 04/07/2024, 03/2 , 03/08/2023, Additional history exists Diabetic Eye Exam 12/09/2024 12/10/2023, , 06/15/2022, Additional history exists CKD PHOS USE SMARTSET 41508 04/07/2025 09/2 01/2024, 09/29/2023, 09/02/2022, Additional history exists Diabetic Foot Exam 04/07/2025 04/07/2024, 0 03/08/2023, 02/18/2022, Additional history exists DTap/Tdap Vaccines (3 - Td or Tdap) 01/31/2030 02/01/2020, 10/29/2009 RETIRED - COLONOSCOPY-EVERY 5 YRS AGES 18-100 Discontinued 07/25/2012, 07/25/2012, 08/18/2006 Pneumococcal Vaccine: 65+ Years Completed 03/07/2015, 01/27/2011 Influenza Vaccine (FLU shot) Completed 04/07/2024, 08/08/2021, 04/09/2020, Additional history exists HPV (Gardasil) Vaccine Aged Out No lo nger eligible based on patient's age to complete this topic Hepatitis B Vaccine Aged Out No longe r eligible based on patient's age to complete this topic MENINGOCOCCAL (MENACTRA/MENVEO) Aged Out No longer eligible based on patient's age to complete this topic documented as of this encounter Medical Devices Implanted Type Area Automobile Bumper Straightener Device Identifier Shelf Expiration Date Model / Serial / Lot Graft Impra Thinwall [id number] - [id number] - [id number] Implanted:Qty: 1 on 03/22/2015 by [place] Gerard [place] [facility] [place]: Femoral Artery CR BARD : PERIPHERAL VASCULAR 12/09/2017 [id number] / [id number] / Stent Viab [id number] - [id number] Implanted:Qty: 1 on 03/22/2015 by Rob Gerard MD [place] [facility] [place]: Femoral Artery [employer] 09/08/2016 [id number] / / [id number] Xenosure [id number] - [id number] Implanted:Qty: 1 on 06/11/2015 by Rob Gerard MD [place] [facility] [place]: Femoral Artery [employer] 10/10/2017 [id number] / / [id number] Description:tt Mx60 Iol Implanted:Qty: 1 on 02/22/2018 by Kris Hillman MD at OR [facility] Left: Eye [employer]USCH [employer]OMB 10/09/2020 [id number] / [id number] / [id number] Mx60e +22.00d Iol Implanted:Qty: 1 on 03/01/2018 by Kris Hillman MD at OR 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 No Care Teams Winterizer Relationship Specialty Start Date End Date Abhishek Kang MD [address] [place] [address] PCP - General Internal Medicine 01/01/12 documented as of this encounter
--- OUTSIDE RECORDS SUMMARY | 2024-09-13 17:51 | External Medical Summary | Summary of Care ---
Author Name Unknown Organization [facility] Address [address] [place] [address] Phone [phone] Care Team Providers Care Seasonal Recruiter Name Role Phone Abhishek Quintero MD Primary Care Provider + Reason for Visit * Reason Onset Date Comments Test Results 05/09/2024 Encounter Details Date Type Department Care Team (Late st Contact Info) Description 05/09/2024 Telephone Cardiology, [facility] [address] [place] [address] Jefferson Cueto DO [address] [place] [address] Test Results Allergies Active Allergy Reactions Criticality Noted Date Comments Pollen Other (Please comment) 05/24/2019 Watery eyes, runny nose Ragweed Other (Please comment) 05/24/2019 Watery eyes, runny nose documented as of this encounter (statuses as of 05/09/2024) Medications Medication Sig Dispensed Refills Start Date End Date Status AMOXICILLIN 500 MG PO CAPS take 4 capsules by mouth 1 hour prior to dental appointment 0 06/15/2014 Active Aspirin 81 MG Tablet Take 1 Tablet by mouth in the morning. 01/23/2015 Active acetaminophen (TYLENOL) 500 MG Tablet Take 1 Tablet by mouth every 6 hours as needed for Pain or Fever. 100 Tab 09/23/2018 Active Lisinopril-hydroCHLO ROthiazide 20-12.5 MG Oral TabletIndications:HT N, goal below 140/90 Take 1 Tablet by mouth in the morning. 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 90 Tablet 2 08/18/2023 Active Propranolol HCl 10 MG Oral Tablet (Inderal) take 1 tablet by mouth 30 MINUTES PRIOR TO EVENT, UP TO 3 TABLETS DAILY 90 Tablet 2 10/23/2023 Active Allopurinol 300 MG Oral Tablet (Zyloprim)Indication s:Gouty arthritis Take 1 Tablet by mouth in the morning. 100 Tablet 3 11/23/2023 Active Atorvastatin Calcium 40 MG Oral Tablet (Lipitor)Indications :Elevated LFTs Take 1 Tablet by mouth in the morning. 100 Tablet 2 11/22/2023 Active Clopidogrel Bisulfate 75 MG Oral Tablet (pLAVix) Take 1 Tablet by mouth in the morning. 100 Tablet 3 11/23/2023 Active Terbinafine HCl 250 MG Oral Tablet (Lamisil) Take 1 tablet by mouth every day with a meal for 84 days, for toenail and foot fungus. 84 Tablet 03/24/2024 Active Zoster Vac Recomb Adjuvanted 50 MCG/0.5ML Intramuscular Suspension Reconstituted (Shingrix)Indication s:Need for shingles vaccine Inject 0.5 mL into a large muscle now and repeat dose in 60 to 180 days 1 Each 1 04/07/2024 Active Famotidine 20 MG Oral Tablet (Pepcid) Take 1 Tablet by mouth in the morning and 1 Tablet before bedtime. 04/07/2024 Active Clotrimazole 1 % External Cream (Lotrimin) Apply topically to affected area on bottom of feet two times daily. 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 First attack May 2014. Uric acid 10.4 Carotid stenosis, non-symptomatic 03/26/2014 02/15/2019 Lumbago 05/24/2012 03/24/2018 ADVANCE DIRECTIVE INFORMATION 12/10/2011 09/20/2017 Overview: Yes, Patient instructed to provide copy of advance directive for provider to review and to be scanned into Electronic Medical Record Monocytosis 11/13/2011 03/22/2017 Overview: Elevated cbc repeat in 3 months Essential and other specified forms of tremor 10/15/19 12 03/22/2017 Dyslipidemia, goal LDL below 100 06/27/2009 03/07/2015 Overview: Per Lipid Taxonomy. Abdominal aortic aneurysm 11/06/2008 Benign hypertension with CKD (chronic kidney disease) stage III 03/13/2008 03/08/2023 Benign neoplasm of colon 08/18/200605/2017 Overview: repeat colonoscopy in 5 years Screening for prostate cancer 10/09/2005 09/19/2008 Overview: Resolved per Screening Diagnosis Protocol #6 SCREEN MAL NEOP-RECTUM 10/09/200509/19 Overview: Resolved per Screening Diagnosis Protocol #6 Dyslipidemia, goal to be determined 06/16/2005 06/27/2009 Overview: Per Lipid Taxonomy. documented as of this encounter (statuses as of 05/09/2024) Immunizations Name Administration Dates Next Due COVID-19 mRNA, LNP-s, No Pre serve, 2-Dose Series (Moderna) 09/14/2020,08/10/2020 COVID-19, MRNA-LNP, 24-25, P R, 30MCG/0.3ML, IM, 12YRS AND ABOVE (School Admissions-Comirnaty) 04/24/2024 COVID-19, mRNA, LNP-s, PF, B ooster, [...] in the Last Year Never true 05/24/2019 Utilities Answer Date Recorded Do you have trouble paying y our heating, water, or electric bill? (Adult - for ages 18 years and over) Not on file 12/28/2023 Is your family able to pay t he heat, water, or electric bill? (Household - for ages 0-17 years) Not on file 12/28/2023 Does your family have access to good internet? (Household - for ages 0-17 years) Not on file 12/28/2023 Social Connections Answer Date Recorded How often do you feel lonely or isolated from those around you? (Adult - for ages 18 years and over) Not on file 12/28/2023 Sex and Gender Information Value Date Recorded Sex Assigned at Male 02/15/2019 3:48 PM EDT Gender Identity Male 02/15/2019 3:48 PM EDT Sexual Orientation Straight 02/15/2019 3: 48 PM EDT Job Start Date Occupation Industry Not on file Not on file Not on file documented as of this encounter Functional Status Functional Status Response Date of Assess ment Are you deaf or do you have serious difficulty h earing? No 07/15/2015 Are you blind or do you have serious difficulty seeing, even when wearing glasses? No 07/15/2015 Do you have serious difficul ty walking or climbing stairs? (5 years old or older) No 07/15/2015 Do you have difficulty dress ing or bathing? (5 years old or older) No 07/15/2015 Because of a physical, menta l, or emotional condition, do you have difficulty doing errands alone such as visiting a doctor s office or shopping? (15 years old or older) No 07/15/19 16 Cognitive Status Response Date of Assessm ent Because of a physical, menta l, or emotional condition, do you have serious difficulty concentrating, remembering, or making decisions? (5 years old or older) No 07/15/2015 documented as of this encounter Miscellaneous Notes * Telephone Encounter - Phoebe Myrick OSA - 05/09/2024 3:52 PM EDT Person calling: patient Relationship to patient: patient Phone/Fax to return call: [phone] Reason for call(brief): returned the call Pharmacy: -- Provider Name: Nory Detailed message to office: No answer at nursing station or in Teams. * Telephone Encounter - Jannette Corona LPN - 05/09/2024 3:37 PM EDT LMOM for pt to return call to [phone] for information in note. Also sent hetrast message. * Telephone Encounter - Jannette Corona LPN - 05/09/2024 3:36 PM EDT ----- Message from Jefferson Cueto DO sent at 05/09/2024 3:31 PM EDT ----- Results reviewed in coverage of Dr Bradshaw. cardiology nursing: Please notify patient that recent echocardiogram reveals moderate aortic stenosis. Relatively unchanged compared to 2022. Keep plan for upcoming visit as scheduled next month withDr. Baker. Jefferson Cueto DO documented in this encounter Plan of Treatment Upcoming Encounters Date Type Department Care Team (Late st Contact Info) Description 05/17/2024 8:30 AM EST Office Visit Cardiology, [facility] [address] [place] [address] Bebo Baker MD 132 [facility] [place] [address] 07/07/2024 10:00 AM EST Nurse Only Ancillary [facility] [place] [address] [facility] [place] [address] Nurse, Int Med [address] [facility] [place] [address] 11/21/2024 2:30 PM EDT Office Visit Urology, [facility] 132 [facility] [place] [address] Simeon Hillman MD [address] [place] [address] 01/04/2025 2:00 PM EDT Office Visit General Internal Medicine [facility] [place] [address] [facility] [place] [address] Abhishek Quintero MD 200 [facility] [place] [address] Scheduled Procedures Name Priority Associated Diagnoses Date/Ti me COLONOSCOPY FLEXIBLE PROXIMAL DIAGNOSTIC Recall Screen for colon cancer Health Maintenance Due Date Last Done Comments Adult Wellness Visit 12/30/2011 Colonoscopy 07/25/2017 07/25/2012, 07/12, 08/18/2006 Depression Screening 03/08/2024 03/08/2023 Zoster Vaccines (2 of 2) 06/02/2024 04/07/2024 Albumin/Creatinine Ratio 09/28/2024 024, 09/02/2022, 08/13/2021, Additional history exists CKD HGB USE SMARTSET 17247 09/28/202409/28, 09/29/2023, 09/02/2022, Additional history exists GFR 10/05/2024 04/07/2024, 032 , 03/08/2023, Additional history exists HbA1c 10/05/2024 04/07/2024, 032 , 03/08/2023, Additional history exists Diabetic Eye Exam 12/09/2024 12/10/2023, , 06/15/2022, Additional history exists CKD PHOS USE SMARTSET 28015 04/07/2025 092 01/2024, 09/29/2023, 09/02/2022, Additional history exists Diabetic Foot Exam 04/07/2025 04/07/2024, 0 03/08/2023, 02/18/2022, Additional history exists DTap/Tdap Vaccines (3 - Td or Tdap) 01/31/2030 02/01/2020, 10/29/2009 RETIRED - COLONOSCOPY-EVERY 5 YRS AGES 18-100 Discontinued 07/25/2012, 07/25/2012, 08/18/2006 Pneumococcal Vaccine: 65+ Years Completed 03/07/2015, 01/27/2011 Influenza Vaccine (FLU shot) Completed 04/07/2024, 08/08/2021, 04/09/2020, Additional history exists COVID-19 Vaccine Completed 04/24/2024, 03/2021, 09/14/2020, Additional history exists HPV (Gardasil) Vaccine Aged Out No lo nger eligible based on patient's age to complete this topic Hepatitis B Vaccine Aged Out No longe r eligible based on patient's age to complete this topic MENINGOCOCCAL (MENACTRA/MENVEO) Aged Out No longer eligible based on patient's age to complete this topic documented as of this encounter Medical Devices Implanted Type Area Salvage Inspector [employer] Device Identifier Shelf Expiration Date Model / Serial / Lot Graft Yesicaa Triciawall [id number] - [id number] - [id number] Implanted:Qty: 1 on 03/22/2015 by Rob Gerard MD at [place] [facility] [place] Right: Femoral Artery CR BARD : PERIPHERAL VASCULAR 12/09/2017 [id number] / [id number] / Stent Viab [id number] - [id number] Implanted:Qty: 1 on 03/22/2015 by Rob Gerard MD at OR [facility] [place] Right: Femoral Artery [employer] 09/08/2016 [id number] / / [id number] Patch Xenosure [id number] - [id number] Implanted:Qty: 1 on 06/11/2015 by Rob Gerard MD at OR [facility] Left: Femoral Artery [employer] 10/10/2017 [id number] / / [id number] Description:tt Mx60 Iol Implanted:Qty: 1 on 02/22/2018 by Kris Hillman MD at OR [facility] Left: Eye BAUSCH [employer] LOMB 10/09/2020 MX60 / [id number] / [id number] Mx60e +22.00d Iol Implanted:Qty: 1 on 03/01/2018 by Kris Hillman MD at OR [facility] Right: Eye BAUSCH & LOMB 09/08/2020 [id number]+22.0 0D / [id number] / [id number] documented as of this encounter Advance Directives [...] Power of Attor kendal? No Care Teams Seasonal Recruiter Relationship Specialty Start Date End Date Abhishek Quintero MD [address] [place] [address] PCP - General Internal Medicine 01/01/12 documented as of this encounter
--- OUTSIDE RECORDS SUMMARY | 2024-09-13 17:51 | External Medical Summary | Summary of Care ---
Author Name Unknown Organization [facility] Address [address] [place] [address] Phone [phone] Care Team Providers Care Supervisor Jewelry Department Name Role Phone Abhishek Kang MD Primary Care Provider + Reason for Referral * Precert (Diagnostic Medical) (Within 10 days (routine)) - Authorized Specialty Diagnoses / Procedures Referred By Contac t Referred To Contact Cardiac Studies Diagnoses Asymptomatic bilateral carotid artery stenosis Hypertension goal BP (blood pressure) < 140/90 Left bundle branch block Nonrheumatic aortic valve stenosis Procedures ECHO, COMPLETE (2D), TRANS-THORACIC Bebo Baker MD [address] [place] [address] Referral ID Status Reason Start Date Expiration Date V isits Requested Visits Authorized [id number] Authorized Precert 05/17/2025 999 999 Reason for Visit * Reason Comments Follow Up Encounter Details Date Type Department Care Team ([facility] st Contact Info) Description 05/17/2024 8:30 AM EST Office Visit Cardiology, [facility] [address] [place] [address] Bebo Baker MD [address] [place] [address] Asymptomatic bilateral carotid artery stenosis*; Hypertension goal BP (blood pressure) < 140/90; Left bundle branch block; Nonrheumatic aortic valve stenosis Allergies Active Allergy Reactions Criticality Noted Date Comments Pollen Other (Please comment) 05/24/2019 Watery eyes, runny nose Ragweed Other (Please comment) 05/24/2019 Watery eyes, runny nose documented as of this encounter (statuses as of 05/17/2024) Medications Medication Sig Dispensed Refills Start Date End Date Status AMOXICILLIN 500 MG PO CAPS take 4 capsules by mouth 1 hour prior to dental appointment 0 4 Active Aspirin 81 MG Tablet Take 1 Tablet by mouth in the morning. 5 Active acetaminophen (TYLENOL) 500 MG Tablet Take 1 Tablet by mouth every 6 hours as needed for Pain or Fever. 100 Tab 9 Active Lisinopril-hydroC HLOROthiazide 20-12.5 MG Oral TabletIndications :HTN, goal below 140/90 Take 1 Tablet by mouth in the morning. 90 Tablet 2 4 Active amLODIPine Besylate 10 MG Oral Tablet (Norvasc)Indicati ons:Benign hypertension with CKD (chronic kidney disease) stage III (HCC) Take 1 Tablet by mouth in the morning. 90 Tablet 2 4 Active Propranolol HCl 10 MG Oral Tablet (Inderal) take 1 tablet by mouth 30 MINUTES PRIOR TO EVENT, UP TO 3 TABLETS DAILY 90 Tablet 2 4 Active Allopurinol 300 MG Oral Tablet (Zyloprim)Indicat ions:Gouty arthritis Take 1 Tablet by mouth in the morning. 100 Tablet 3 4 Active Clopidogrel Bisulfate 75 MG Oral Tablet (pLAVix) Take 1 Tablet by mouth in the morning. 100 Tablet 3 4 Active Terbinafine HCl 250 MG Oral Tablet (Lamisil) Take 1 tablet by mouth every day with a meal for 84 days, for toenail and foot fungus. 84 Tablet 4 Active Famotidine 20 MG Oral Tablet (Pepcid) Take 1 Tablet by mouth in the morning and 1 Tablet before bedtime. 4 Active Rosuvastatin Calcium 40 MG Oral Tablet (Crestor)Indicati ons:Asymptomatic bilateral carotid artery stenosis,Hyperten oumar goal BP (blood pressure) < 140/90,Left bundle branch block,Nonrheumati c aortic valve stenosis Take 1 Tablet by mouth in the morning. 100 Tablet 3 4 Active Atorvastatin Calcium 40 MG Oral Tablet (Lipitor)Indicati ons:Elevated LFTs Take 1 Tablet by mouth in the morning. 100 Tablet 2 4 05/17/20 24 Discontinued(Me dication/Dose Changed) Zoster Vac Recomb Adjuvanted 50 MCG/0.5ML Intramuscular Suspension Reconstituted (Shingrix)Indicat ions:Need for shingles vaccine Inject 0.5 mL into a large muscle now and repeat dose in 60 to 180 days 1 Each 1 4 05/17/20 24 Discontinued Clotrimazole 1 % External Cream (Lotrimin) Apply topically to affected area on bottom of feet two times daily. 180 g 4 05/17/20 24 Discontinued documented as of this encounter (statuses as of 05/17/2024) Active Problems Problem Noted Date Diagnosed Date [...] as of this encounter (statuses as of 05/17/2024) Resolved Problems Problem Noted Date Diagnosed Date [...] as of this encounter (statuses as of 05/17/2024) Immunizations Name Administration Dates Next Due COVID-19 mRNA, LNP-s, No Pre serve, 2-Dose Series (Moderna) 09/14/2020,08/10/2020 COVID-19, MRNA-LNP, 24-25, P R, 30MCG/0.3ML, IM, 12YRS AND ABOVE ([employer]-Comirnaty) 04/24/2024 COVID-19, mRNA, LNP-s, PF, B ooster, [...] 0 [birth year]12[birth year]1956 - 07/12/1996 Smokeless Tobacco: Never Tobacco Cessation:Counseling Given: Not Answered Alcohol Use Standard Drinks/Week Comments Yes 0 [...] on file documented as of this encounter Last Filed Vital Signs Vital Sign Reading Time Taken Comments Blood Pressure 114/60 05/17/2024 8:17 AM EST Pulse 84 05/17/2024 8:17 AM EST Temperature - - Respiratory Rate - - Oxygen Saturation 91% 05/17/2024 8:17 AM EST Inhaled Oxygen Concentration - - Weight 90.3 kg (199 lb) 05/17/2024 8:17 AM EST Height - - Body Mass Index 30.26 09/22/2023 3:06 PM EDT documented in this encounter Functional Status Functional Status Response [...] No 07/15/2015 documented as of this encounter Progress Notes * Bebo Baker MD - 05/17/2024 8:30 AM EST 05/17/2024 Cardiology Follow Up Referring Provider: PCP: [place] [place] [address] [phone] Chief Complaint: Follow-up vascular and valvular heart disease SUBJECTIVE: Kris Barrera is a 78 year old year old male with ongoing cardiac issues 1.Chronic left bundle branch block. 2.Atherosclerotic peripheral vascular disease with prior surgical revascularizationt. 3.Abdominal aortic aneurysm, moderate. 4.Chronic claudication. 5.Chronic renal insufficiency. 6.Hypertension. 7. Moderate nonrheumatic aortic stenosis Patient presents today in routine follow-up. Denies any acute cardiac complaints. Activities limited predominantly by neurogenic and vascular claudication. Still walks routinely without change in overall exercise capacity. Walks between the benches in the park. Recovers quickly then continues. No dizziness lightheadedness syncope or near syncope No fevers chills unexplained infections Tolerating current medications Does have mild balance issues no significant falls A Complete Review of Systems is as stated above or negative. 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 acetaminophen (TYLENOL) 500 MG Tablet Take 1 Tablet by mouth every 6 hours as needed for Pain or Fever. 100 Tab 0 Lisinopril-hydroCHLOROthiazide 20-12.5 MG Oral Tablet Take 1 Tablet by mouth in the morning. 90 Tablet 2 amLODIPine Besylate 10 MG Oral Tablet (Norvasc) Take 1 Tablet by mouth in the morning. 90 Tablet 2 Propranolol HCl 10 MG Oral Tablet (Inderal) take 1 tablet by mouth 30 MINUTES PRIOR TO EVENT, UP TO3 TABLETS DAILY 90 Tablet 2 Allopurinol 300 MG Oral Tablet (Zyloprim) Take 1 Tablet by mouth in the morning. 100 Tablet 3 Clopidogrel Bisulfate 75 MG Oral Tablet (pLAVix) Take 1 Tablet by mouth in the morning. 100 Tablet 3 Terbinafine HCl 250 MG Oral Tablet (Lamisil) Take 1 tablet by mouth every day with a meal for 84 days, for toenail and foot fungus. 84 Tablet 0 Famotidine 20 MG Oral Tablet (Pepcid) Take 1 Tablet by mouth in the morning and 1 Tablet before bedtime. Rosuvastatin Calcium 40 MG Oral Tablet (Crestor) Take 1 Tablet by mouth in the morning. 100 Tablet 3 AMOXICILLIN 500 MG PO CAPS take 4 capsules by mouth 1 hour prior to dental appointment 0 No current facility-administered medications for this visit. OBJECTIVE/PHYSICAL EXAMINATION: BP 114/60 | Pulse 84 | Wt 90.3 kg (199 lb) | SpO2 91% | BMI 30.26 kg/m | BSA 2.08 m General: Age appropriate male in no acute distress Head: normocephalic, no masses, lesions, tenderness or abnormalities Eyes: conjunctiva are pink and non-injected, sclera clear Throat: clear Nares: without discharge Neck: supple, no adenopathy, normal jugular venous pulse, no hepatojugular reflux, no carotid bruits Chest: Mild barrel shaped and normal respiratory effort Lungs: clear to auscultation and percussion minimal rhonchorous cough on forced effort Cardiac Exam: - regular rate & rhythm, grade 2/6 systolic murmur radiating to the base of the carotids, no diastolic murmur, gallop or rub - normal S-1, normal S-2 Abdomen: abdomen soft, non-tender, no abnormal masses, no hepatosplenomegaly, no abdominal bruit, no femoral bruit Musculoskeletal: no gait disturbance, no joint inflammation, no deforming arthritis Extremities: no edema, no cyanosis, pulses intact 2+/4 Neuro: grossly normal exam Data: EKG performed today, 05/17/2024 , and reviewed personally : Sinus rhythm with premature atrial beats at 69 beats per minute Left bundle-branch block without change Lipid Panel Results: Results for orders placed or performed in visit on 01/15/11 LIPID PANEL Result Value Ref Range HOURS FASTING 12 hours Triglycerides 174 <200 mg/dL Cholesterol 169 <200 mg/dL HDL Cholesterol 66 (H) 40 - 59 mg/dL Cholesterol-HDL Ratio 2.6 LDL Cholesterol 68 0 - 129 mg/dL Results for orders placed or performed in visit on 09/29/23 LIPID PANEL WITH DIRECT LDL IF TG IS HIGH Result Value Ref Range Triglycerides 117 <=174 mg/dL Cholesterol 174 <200 mg/dL HDL Cholesterol 72 >39 mg/dL Non-HDL Cholesterol 102 <=159 mg/dL LDL Cholesterol 79 <=129 mg/dL Echocardiogram May 09, 2024 The left ventricular cavity size is normal. The LV wall thickness is moderately increased (concentric). The septal motion is abnormal consistent with left bundle branch block. The regional left ventricular wall motion is otherwise normal. The qualitative LV ejection fraction is 55-59% (normal). The left ventricular diastolic function is mildly abnormal (grade I). The aortic valve is moderately calcified. Moderate aortic valve stenosis is present. Peak aortic valve velocity 3.5 m/sec Mild mitral regurgitation is present. Mild tricuspid regurgitation is present. Mild pulmonary hypertension is present. ASSESSMENT: 78 year old year old male Presents for routine follow-up with cardiac concerns 1. Stable moderate nonrheumatic aortic stenosis 2. Vascular disease with abdominal aortic aneurysm prior surgical peripheral revascularization withstable claudication 3. Dyslipidemia 4. Hypertension controlled PLAN: Discussed management of above issues in detail with patient Congratulated patient is on exercise efforts and recommended continuing. Did recommend use of walking stick for balance issues Yearly echocardiogram ordered Given peripheral vascular disease and concerns regarding cardiovascular risk will change lipid-lowering therapy to rosuvastatin 40 mg p.o. q.day with goal LDL less than 70 DISPOSITION: Return 1 year with patient to promptly report any new symptoms or complaints. Discussed in detail Bebo Baker MD Cardiology, [facility] [address] [facility] [place] [address] documented in this encounter Nursing Notes * Ibis Cruz CMA - 05/17/2024 8:16 AM EST Examination Room: 13 Name: Kris Barrera Date of : (1945) Reason for Visit: 6m Interim Hospitalization(s): none Problems/Concerns: denied Chest Pain/SOB: denied My [facility] is a way you can talk to your provider online through e-mail. Would you like to sign up? I can activate it for you? ALREADY ACTIVE Patient was instructed to not get up on the exam table until directed and assisted by their provider; patient is to remain seated in the chair/ wheelchair/ exam table for fall prevention and safety reasons. Patient is aware to have assistance to step down off exam table with personnel. Patient voiced full comprehension of instructions. documented in this encounter Plan of Treatment Upcoming Encounters Date Type Department Care Team (Late st Contact Info) Description 07/07/2024 10:00 AM EST Nurse Only Ancillary [facility] Francis [address] [place] [address] Nurse, Int Med [address] [place] [address] 11/21/2024 2:30 PM EDT Office Visit Urology, [facility] [address] [facility] [place] [address] Simeon Hillman MD [address] [place] [address] 01/04/2025 2:00 PM EDT Office Visit General Internal Medicine [facility] [address] [facility] [place] [address] Abhishek Kang MD [address] [facility] [place] [address] 05/08/2025 9:30 AM EDT Cardiac Studies Cardiac Studies, [facility] [address] [facility] [place] [address] Scheduled Orders Name Type Priority Associated Diagnoses Orde r Schedule EKG EKG Routine Asymptomatic bilateral carotid artery stenosis Hypertension goal BP (blood pressure) < 140/90 Left bundle branch block Ordered: 05/17/2024 ECHO, COMPLETE (2D), TRANS-THORACIC Echocardiology Routine Asymptomatic bilateral carotid artery stenosis Hypertension goal BP (blood pressure) < 140/90 Left bundle branch block Nonrheumatic aortic valve stenosis Expected: 05/17/2025 (Approximate), Expires: 06/16/2026 Scheduled Procedures Name Priority Associated Diagnoses Date/Ti [...] Additional history exists CKD HGB USE SMARTSET 61426 09/28/202409/28, 09/29/2023, 09/02/2022, Additional history exists GFR 10/05/2024 04/07/2024, 032 , 03/08/2023, Additional history exists HbA1c 10/05/2024 04/07/2024, 09/10, 03/08/2023, Additional history exists Diabetic Eye Exam 12/09/2024 12/10/2023, , 06/15/2022, Additional history exists CKD PHOS USE SMARTSET 91949 04/07/2025 092 01/2024, 09/29/2023, 09/02/2022, Additional history [...] this encounter Medical Devices Implanted Type Area Assembler Dry Cell And Battery Device Identifier Shelf Expiration Date Model / Serial / Lot Graft Impra Thinwall [id number] - [id number] - [id number] Implanted:Qty: 1 on 03/22/2015 by Rob Gerard MD at OR [facility] [place] [place] Right: Femoral Artery CR BARD : PERIPHERAL VASCULAR 12/09/2017 [id number] / [id number] / Stent Viab [id number] - [id number] Implanted:Qty: 1 on 03/22/2015 by Rob Gerard MD at OR [facility] [place] [place] Right: Femoral Artery [employer] 09/08/2016 [id number] / / [id number] Patch Xenosure [id number] - [id number] Implanted:Qty: 1 on 06/11/2015 by Rob Gerard MD at OR [facility] [place] [place] Left: Femoral Artery [employer] 10/10/2017 [id number] / / [id number] Description:tt Mx60 Iol Implanted:Qty: 1 on 02/22/2018 by Kris Hillman MD at OR [facility] Left: Eye [employer] 10/09/2020 MX60 / [id number] / [id number] Mx60e +22.00d Iol Implanted:Qty: 1 on 03/01/2018 by Kris Hillman MD at OR [facility] Right: Eye [employer] 09/08/2020 [id number]+22.0 0D / [id number] / [id number] documented as of this encounter Visit Diagnoses Diagnosis Asymptomatic bilateral carotid artery stenosis- Primary Occlusion and stenosis of multiple and bilateral precerebral arteries without mention of cerebral infarction Hypertension goal BP (blood pressure) < 140/90 Unspecified essential hypertension Left bundle branch block Other left bundle branch block Nonrheumatic aortic valve stenosis Aortic valve disorders documented in this encounter Advance Directives * [...] Power of Attor kendal? No Care Teams Supervisor Jewelry Department Relationship Specialty Start Date End Date Abhishek Kang MD [address] [place] [address] PCP - General Internal Medicine 01/01/12 documented as of this encounter"
--- OUTSIDE RECORDS SUMMARY | 2024-09-13 17:51 | External Medical Summary | Summary of Care ---
Author Name Unknown Organization [facility] Address [address] [place] [address] Phone [phone] Care Team Providers Care Slat Basket Maker Machine Name Role Phone Abhishek Quintero MD Primary Care Provider + Reason for Visit * Reason Onset Date Comments Test Results 05/09/2024 Encounter Details Date Type Department Care Team (Late st Contact Info) Description 05/09/2024 Telephone Cardiology, [facility] [address] [place] [address] Jefferson Cueto DO [address] [place] [address] Test Results Allergies Active Allergy Reactions Criticality Noted Date Comments Pollen Other (Please comment) 05/24/2019 Watery eyes, runny nose Ragweed Other (Please comment) 05/24/2019 Watery eyes, runny nose documented as of this encounter (statuses as of 05/10/2024) Medications Medication Sig Dispensed Refills Start Date [...] as of this encounter (statuses as of 05/10/2024) Active Problems Problem Noted Date Diagnosed Date [...] as of this encounter (statuses as of 05/10/2024) Resolved Problems Problem Noted Date Diagnosed Date [...] as of this encounter (statuses as of 05/10/2024) Immunizations Name Administration Dates Next Due COVID-19 mRNA, LNP-s, No Pre serve, 2-Dose Series (Moderna) 09/14/2020,08/10/2020 COVID-19, MRNA-LNP, 24-25, P R, 30MCG/0.3ML, IM, 12YRS AND ABOVE ([email or web address]) 04/24/2024 COVID-19, mRNA, LNP-s, PF, B ooster, [...] encounter Miscellaneous Notes * Telephone Encounter - Jenny Rocha CMA - 05/10/2024 10:16 AM EDT Called patient, reviewed results. Patient verbalized understanding. * Telephone Encounter - Phoebe Myrick OSA - 05/09/2024 3:52 PM EDT Person calling: patient Relationship to patient: patient Phone/Fax to return call: [phone] Reason for call(brief): returned the call Pharmacy: -- Provider Name: Nory Detailed message to office: No answer at nursing station or in Teams. * Telephone Encounter - Jannette Corona LPN - 05/09/2024 3:37 PM EDT LMOM for pt to return call to [phone] for information in note. Also sent [employer] message. * Telephone Encounter - Jannette Corona [...] 05/17/2024 8:30 AM EST Office Visit Cardiology, [facility] [address] [address] Bebo Baker MD [address] [place] [address] 07/07/2024 10:00 AM EST Nurse Only Ancillary [facility] [address] [place] [address] Nurse, Int Med [address] [facility] [place] [address] 11/21/2024 2:30 PM EDT Office Visit Urology, [facility] [address] [place] [address] Simeon Hillman MD [address] [place] [address] 01/04/2025 2:00 PM EDT Office Visit General Internal Medicine [facility] [address] [facility] [place] [address] Abhishek Quintero MD [address] [facility] [place] [address] Scheduled Procedures Name Priority Associated Diagnoses Date/Ti me COLONOSCOPY FLEXIBLE PROXIMAL DIAGNOSTIC Recall Screen for colon cancer Health Maintenance Due Date Last Done Comments Adult Wellness Visit 12/30/2011 Colonoscopy 07/25/2017 07/25/2012, 07/12, 08/18/2006 Depression Screening 03/08/2024 03/08/2023 Zoster Vaccines (2 of 2) 06/02/2024 04/07/2024 Albumin/Creatinine Ratio 09/28/2024 024, 09/02/2022, 08/13/2021, Additional history exists CKD HGB USE SMARTSET 56923 09/28/202409/28, 09/29/2023, 09/02/2022, Additional history exists GFR 10/05/2024 04/07/2024, 2 , 03/08/2023, Additional history exists HbA1c 10/05/2024 04/07/2024, 032 , 03/08/2023, Additional history exists Diabetic Eye Exam 12/09/2024 12/10/2023, , 06/15/2022, Additional history exists CKD PHOS USE SMARTSET 68024 04/07/2025 092 01/2024, 09/29/2023, 09/02/2022, Additional history [...] this encounter Medical Devices Implanted Type Area Dispatch Supervisor Device Identifier Shelf Expiration Date Model / Serial / Lot Graft Impra Thinwall [id number] - [id number] - [id number] Implanted:Qty: 1 on 03/22/2015 by Rob Gerard MD at OR [facility] [place] Right: Femoral Artery CR BARD : PERIPHERAL VASCULAR 12/09/2017 [id number] / [id number] / Stent Viab [id number] - [id number] Implanted:Qty: 1 on 03/22/2015 by Rob Gerard MD at OR [facility] [place] Right: Femoral Artery [employer] 09/08/2016 [id number] / / [id number] Patch Xenosure [id number] - [id number] Implanted:Qty: 1 on 06/11/2015 by Rob Gerard MD at OR [facility] [place] Left: Femoral Artery [employer] 10/10/2017 E0.8P8 / / [id number] Description:tt Mx60 Iol Implanted:Qty: 1 on 02/22/2018 by Kris Hillman MD at OR [facility] Left: Eye [employer] 10/09/2020 MX60 / [id number] / [id number] Mx60e +22.00d Iol Implanted:Qty: 1 on 03/01/2018 by Kris Hillman MD at OR [facility] Right: Eye [employer] 09/08/2020 MX60E+22.0 0D / [id number] / [id number] documented as of this encounter Advance Directives [...] 5:16 PM 06/13/2015 6:04 PM This order reflects the patients wishes and were consensually agreed upon. Question Answer Comments Discussion of Advance Directives occurred with: Not Discussed Does the patient have a Living Will? No Does the patient have Health Care Power of Attor kendal? No Care Teams Slat Basket Maker Machine Relationship Specialty Start Date End Date Abhishek Quintero MD [address] [facility] [place] [place], [place] [address] PCP - General Internal Medicine 01/01/12 documented as of this encounter
--- OUTSIDE RECORDS SUMMARY | 2024-09-13 17:51 | External Medical Summary | Summary of Care ---
Author Name Unknown Organization [facility] Address [address] [place] [address] Phone [phone] Care Team Providers Care Wireworker Supervisor Name Role Phone Abhishek Quintero MD Primary Care Provider + Encounter Details Date Type Department Care Team (Late st Contact Info) Description 07/07/2024 10:00 AM EST Nurse Only Ancillary [facility] [place] [address] [place] [address] Nurse, Int Med 200 [facility] [place] [address] Arrived Allergies Active Allergy Reactions Criticality Noted Date Comments Pollen Other (Please comment) 05/24/2019 Watery eyes, runny nose Ragweed Other (Please comment) 05/24/2019 Watery eyes, runny nose documented as of this encounter (statuses as of 07/07/2024) Medications AMOXICILLIN 500 MG PO CAPS take 4 capsules by mouth 1 hour prior to dental appointment 0 4 Active Aspirin 81 MG Tablet Take 1 Tablet by mouth in the morning. 5 Active acetaminophen (TYLENOL) 500 MG Tablet Take 1 Tablet by mouth every 6 hours as needed for Pain or Fever. 100 Tab 9 Active Lisinopril-hydro CHLOROthiazide 20-12.5 MG Oral TabletIndication s:HTN, goal below 140/90 Take 1 Tablet by mouth in the morning. 90 Tablet 2 04/20/2024 10:32 AM EDT 4 Active Propranolol HCl 10 MG Oral Tablet (Inderal) take 1 tablet by mouth 30 MINUTES PRIOR TO EVENT, UP TO 3 TABLETS DAILY 90 Tablet 2 04/20/2024 10:32 AM EDT 4 Active Allopurinol 300 MG Oral Tablet (Zyloprim)Indica tions:Gouty arthritis Take 1 Tablet by mouth in the morning. 100 Tablet 3 06/05/2024 1:56 PM EST 4 Active Clopidogrel Bisulfate 75 MG Oral Tablet (pLAVix) Take 1 Tablet by mouth in the morning. 100 Tablet 3 04/29/2024 10:58 AM EDT 4 Active Terbinafine HCl 250 MG Oral Tablet (Lamisil) Take 1 tablet by mouth every day with a meal for 84 days, for toenail and foot fungus. 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 [place] [address] Simeon Hillman MD [address] [place] [address] 01/04/2025 2:00 PM EDT Office Visit General Internal Medicine [facility] [address] [place] [address] Abhishek Quintero MD [address] [place] [address] 05/08/2025 9:30 AM EDT Cardiac Studies Cardiac Studies, [facility] [address] [place] [address] Scheduled Procedures Name Priority Associated Diagnoses Date/Ti me COLONOSCOPY FLEXIBLE PROXIMAL DIAGNOSTIC Recall Screen for colon cancer Health Maintenance Due Date Last Done Comments Adult Wellness Visit 12/30/2011 Colonoscopy 07/25/2017 07/25/2012, 07/12, 08/18/2006 Depression Screening 03/08/2024 03/08/2023 COVID-19 Vaccine ( season) 2024 04/24/2024, 06/19/2021, 09/14/2020, Additional history exists Albumin/Creatinine Ratio 09/28/2024 024, 09/02/2022, 08/13/2021, Additional history exists CKD HGB USE SMARTSET 48237 09/28/202409/28, 09/29/2023, 09/02/2022, Additional history exists GFR 10/05/2024 04/07/2024, 032 , 03/08/2023, Additional history exists HbA1c 10/05/2024 04/07/2024, 032 , 03/08/2023, Additional history exists Diabetic Eye Exam 12/09/2024 12/10/2023, , 06/15/2022, Additional history exists CKD PHOS USE SMARTSET 62195 04/07/2025 09/2 01/2024, 09/29/2023, 09/02/2022, Additional history [...] this encounter Medical Devices Implanted Type Area Construction Quality Control Manager Device Identifier Shelf Expiration Date Model / Serial / Lot Graft Impra Thinwall [id number] - [id number] - [id number] Implanted:Qty: 1 on 03/22/2015 by Rob Gerard MD at OR [facility] [facility] Right: Femoral Artery CR BARD : PERIPHERAL VASCULAR 12/09/2017 [id number] / [id number] / Stent Viab [id number] - [id number] Implanted:Qty: 1 on 03/22/2015 by Rob Gerard MD at OR [facility] [place] Right: Femoral Artery [employer] 09/08/2016 [id number] / / [id number] Patch Xenosure [id number] - [id number] Implanted:Qty: 1 on 06/11/2015 by Rob Gerard MD at OR [facility] [place] [facility] Left: Femoral Artery [employer] 10/10/2017 E0.8P8 / / [id number] Description:tt Mx60 Iol Implanted:Qty: 1 on 02/22/2018 by Kris Hillman MD at OR [facility] Left: Eye BAUSCH & LOMB 10/09/2020 MX60 / [id number] / [id number] Mx60e +22.00d Iol Implanted:Qty: 1 on 03/01/2018 by Kris Hillman MD at OR [facility] Right: Eye BAUSCH & LOMB 09/08/2020 MX60E+22.0 0D / [id number] / [id number] documented as of this encounter Visit Diagnoses Diagnosis Need for vaccination for zoster- Primary Need for prophylactic vaccination and inoculation against other viral diseases documented in this encounter Advance Directives * [...] Power of Attor kendal? No Care Teams Wireworker Supervisor Relationship Specialty Start Date End Date Abhishek Quintero MD [address] [place] [address] PCP - General Internal Medicine 01/01/12 documented as of this encounter
--- OUTSIDE RECORDS SUMMARY | 2024-09-13 17:51 | External Medical Summary | Summary of Care ---
Author Name Unknown Organization [facility] Address [address] [place] [address] Phone [phone] Care Team Providers Care Event Promoter Name Role Phone Abhishek Quintero MD Primary Care Provider + Encounter Details Date Type Department Care Team (Late st Contact Info) Description 08/02/2024 Population Health External Data Unspecified Department Allergies Active Allergy Reactions Criticality Noted Date Comments Pollen Other (Please comment) 05/24/2019 Watery eyes, runny nose Ragweed Other (Please comment) 05/24/2019 Watery eyes, runny nose documented as of this encounter (statuses as of 08/02/2024) Medications AMOXICILLIN 500 MG PO CAPS take 4 capsules by mouth 1 hour prior to dental appointment 0 4 Active Aspirin 81 MG Tablet Take 1 Tablet by mouth in the morning. 5 Active acetaminophen (TYLENOL) 500 MG Tablet Take 1 Tablet by mouth every 6 hours as needed for Pain or Fever. 100 Tab 9 Active Allopurinol 300 MG Oral Tablet (Zyloprim)Indica tions:Gouty arthritis Take 1 Tablet by mouth in the morning. 100 Tablet 3 06/05/2024 1:56 PM EST 4 Active Clopidogrel Bisulfate 75 MG Oral Tablet (pLAVix) Take 1 Tablet by mouth in the morning. 100 Tablet 3 04/29/2024 10:58 AM EDT 4 Active Famotidine 20 MG [...] 2 06/29/2024 11:53 AM EST 4 Active Lisinopril-hydro CHLOROthiazide 20-12.5 MG Oral TabletIndication s:HTN, goal below 140/90 Take 1 Tablet by mouth in the morning. 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 Not [...] Care Team (Late st Contact Info) Description 01/04/2025 2:00 PM EDT Office Visit General Internal Medicine [facility] [address] [facility] [place] [address] Abhishek Quintero MD [address] [facility] [place] [address] 05/08/2025 9:30 AM EDT Cardiac Studies Cardiac Studies, [facility] [address] [facility] [place] [address] Scheduled Procedures Name Priority Associated Diagnoses Date/Ti me COLONOSCOPY FLEXIBLE PROXIMAL DIAGNOSTIC Recall Screen for colon cancer Health Maintenance Due Date Last Done Comments Adult Wellness Visit 12/30/2011 Colonoscopy 07/25/2017 07/25/2012, 07/12, 08/18/2006 Depression Screening 03/08/2024 03/08/2023 COVID-19 Vaccine ( season) 2024 04/24/2024, 06/19/2021, 09/14/2020, Additional history exists Albumin/Creatinine Ratio 09/28/2024 024, 09/02/2022, 08/13/2021, Additional history exists CKD HGB USE SMARTSET 74974 09/28/202409/28, 09/29/2023, 09/02/2022, Additional history exists GFR 10/05/2024 04/07/2024, 2 , 03/08/2023, Additional history exists HbA1c 10/05/2024 04/07/2024, 09/10, 03/08/2023, Additional history exists Diabetic Eye Exam 12/09/2024 12/10/2023, , 06/15/2022, Additional history exists CKD PHOS USE SMARTSET 29778 04/07/2025 092 01/2024, 09/29/2023, 09/02/2022, Additional history [...] this encounter Medical Devices Implanted Type Area Layaway Clerk Device Identifier Shelf Expiration Date Model / Serial / Lot Graft Yesicaa Thinwall [id number] - [id number] - [id number] Implanted:Qty: 1 on 03/22/2015 by Rob Gerard MD at [place] [facility] Right: Femoral Artery CR BARD : PERIPHERAL VASCULAR 12/09/2017 [id number] / [id number] / Stent Viab [id number] - [id number] Implanted:Qty: 1 on 03/22/2015 by Rob Gerard MD at OR [facility] Right: Femoral Artery [employer] 09/08/2016 [id number] / / [id number] Patch Xenosure 0.5wcx4fc - [id number] Implanted:Qty: 1 on 06/11/2015 by Rob Gerard MD at OR [facility] Left: Femoral Artery [employer] 10/10/2017 E0.8P8 / / [id number] Description:tt Mx60 Iol Implanted:Qty: 1 on 02/22/2018 by Kris Hillman MD at OR [facility] Left: Eye BAUSCH & LOMB 10/09/2020 MX60 / [id number] / [id number] Mx60e +22.00d Iol Implanted:Qty: 1 on 03/01/2018 by Kris Hillman MD at OR [facility] Right: Eye BAUSCH & LOMB 09/08/2020 MX60E+22.0 0D / [id number] / [id number] documented as of this encounter Advance Directives [...] Power of Attor kendal? No Care Teams Event Promoter Relationship Specialty Start Date End Date Abhishek Quintero MD [address] [place] [address] PCP - General Internal Medicine 01/01/12 documented as of this encounter
--- OUTSIDE RECORDS SUMMARY | 2024-09-13 17:51 | External Medical Summary | Summary of Care ---
Author Name Unknown Organization [facility] Address [address] [place] [address] Phone [phone] Care Team Providers Care Acute Coordinator Name Role Phone Abhishek Quintero MD Primary Care Provider + Reason for Visit * Reason Onset Date Comments Referral 08/02/2024 Encounter Details Date Type Department Care Team (Late st Contact Info) Description 08/02/2024 Telephone Urology [place] [address] [facility] [address] [place] [address] Simeon Hillman MD [address] [place] [address] Referral Allergies Active Allergy Reactions Criticality Noted Date Comments Pollen Other (Please comment) 05/24/2019 Watery eyes, runny nose Ragweed Other (Please comment) 05/24/2019 Watery eyes, runny nose documented as of this encounter (statuses as of 08/03/2024) Medications AMOXICILLIN 500 MG PO CAPS take [...] as of this encounter (statuses as of 08/03/2024) Active Problems Problem Noted Date Diagnosed Date [...] as of this encounter (statuses as of 08/03/2024) Resolved Problems Problem Noted Date Diagnosed Date [...] as of this encounter (statuses as of 08/03/2024) Immunizations Name Administration Dates Next Due COVID-19 mRNA, LNP-s, No Pre serve, 2-Dose Series (Moderna) 09/14/2020,08/10/2020 COVID-19, MRNA-LNP, 24-25, P R, 30MCG/0.3ML, IM, 12YRS AND ABOVE ([employer]) 04/24/2024 COVID-19, mRNA, LNP-s, PF, B ooster, [...] 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 documented in this encounter Plan of Treatment Upcoming Encounters Date Type Department Care Team (Late st Contact Info) Description 01/04/2025 2:00 PM EDT Office Visit General Internal Medicine [facility] [address] [place] [address] Abhishek Quintero MD 200 [facility] [place] [address] 05/08/2025 9:30 AM EDT Cardiac Studies Cardiac Studies, [facility] [address] [place] [address] Scheduled Procedures Name Priority Associated Diagnoses Date/Ti me COLONOSCOPY FLEXIBLE PROXIMAL DIAGNOSTIC Recall Screen for colon cancer Health Maintenance Due Date Last Done Comments Adult Wellness Visit 12/30/2011 Colonoscopy 07/25/2017 07/25/2012, 07/12, 08/18/2006 Depression Screening 03/08/2024 03/08/2023 COVID-19 Vaccine ( season) 2024 04/24/2024, 06/19/2021, 09/14/2020, Additional history exists Albumin/Creatinine Ratio 09/28/2024 024, 09/02/2022, 08/13/2021, Additional history exists CKD HGB USE SMARTSET 65855 09/28/202409/28, 09/29/2023, 09/02/2022, Additional history exists GFR 10/05/2024 04/07/2024, 032 , 03/08/2023, Additional history exists HbA1c 10/05/2024 04/07/2024, 03/2 , 03/08/2023, Additional history exists Diabetic Eye Exam 12/09/2024 12/10/2023, , 06/15/2022, Additional history exists CKD PHOS USE SMARTSET 69269 04/07/2025 09/2 01/2024, 09/29/2023, 09/02/2022, Additional history [...] this encounter Medical Devices Implanted Type Area Cambering Machine Operator Device Identifier Shelf Expiration Date Model / Serial / Lot Graft Impra Thinwall [id number] - [id number] - [id number] Implanted:Qty: 1 on 03/22/2015 by Rob Gerard MD at OR [facility] Right: Femoral Artery CR BARD : PERIPHERAL VASCULAR 12/09/2017 [id number] / [id number] / Stent Viab [id number] - [id number] Implanted:Qty: 1 on 03/22/2015 by Rob Gerard MD at OR [facility] Right: Femoral Artery [employer] 09/08/2016 [id number] / / [id number] Patch Xenosure 0.9mow9qv - [id number] Implanted:Qty: 1 on 06/11/2015 by Rob Gerard MD at OR [facility] Left: Femoral Artery [employer] 10/10/2017 E0.8P8 / / [id number] Description:tt Mx60 Iol Implanted:Qty: 1 on 02/22/2018 by Kris Hillman MD at OR [facility] Left: Eye BAUSCH & LOMB 10/09/2020 MX60 / [id number] / [id number] Mx60e +22.00d Iol Implanted:Qty: 1 on 03/01/2018 by Kris Hillman MD at OR [facility] Right: Eye BAUSCH & LOMB 09/08/2020 MX60E+22.0 0D / [id number] / [id number] documented as of this encounter Advance Directives [...] Power of Attor kendal? No Care Teams Acute Coordinator Relationship Specialty Start Date End Date Abhishek Quintero MD [address] [facility] [place] [address] PCP - General Internal Medicine 01/01/12 documented as of this encounter
--- OUTSIDE RECORDS SUMMARY | 2024-09-13 17:52 | External Medical Summary | Summary of Care ---
Author Name Unknown Organization [facility] Address [address] [place] [address] Phone [phone] Care Team Providers Care Cylinder Inspector And Tester Name Role Phone Abhishek Quintero MD Primary Care Provider + Reason for Visit * Reason Onset Date Comments Test Results 05/09/2024 Encounter Details Date Type Department Care Team (Late st Contact Info) Description 05/09/2024 Telephone Cardiology, [facility] [address] [place] [address] Jefferson Cueto DO [address] [place] [address] Test Results Allergies Active Allergy Reactions Criticality [...] P R, 30MCG/0.3ML, IM, 12YRS AND ABOVE ([employer]Comirnat[facility]) 04/24/2024 COVID-19, mRNA, LNP-s, PF, B ooster, [...] to patient: patient Phone/Fax to return call: [phone] Reason for call(brief): returned the call Pharmacy: -- Provider Name: Nory Detailed message to office: No answer at nursing station or in Teams. * Telephone Encounter - Jannette Corona LPN - 05/09/2024 3:37 PM EDT LMOM for pt to return call to [phone] for information in note. Also [facility] * Telephone Encounter - Jannette Corona [...] 05/17/2024 8:30 AM EST Office Visit Cardiology, [facility] [address] [place] [address] Bebo Baker MD 132 [facility] [place] [address] 07/07/2024 10:00 AM EST Nurse Only Ancillary [facility] [place] 200 [facility] [place] [address] Nurse, Int Med 200 [facility] [place] [address] 11/21/2024 2:30 PM EDT Office Visit Urology, [facility] [address] [facility] [place] [address] Simeon Hillman MD [address] [place] [address] 01/04/2025 2:00 PM EDT Office Visit [facility] Internal [facility] [place] [address] [facility] [place] [address] Abhishek Quintero MD 200 [facility] ON LICENSE OF [facility] [place] [address] Scheduled Procedures Name Priority Associated Diagnoses Date/Ti me COLONOSCOPY FLEXIBLE PROXIMAL DIAGNOSTIC Recall Screen for colon cancer Health Maintenance Due Date Last Done Comments Adult Wellness Visit 12/30/2011 Colonoscopy 07/25/2017 07/25/2012, 07/12, 08/18/2006 Depression Screening 03/08/2024 03/08/2023 Zoster Vaccines (2 of 2) 06/02/2024 04/07/2024 Albumin/Creatinine Ratio 09/28/2024 024, 09/02/2022, 08/13/2021, Additional history exists CKD HGB USE SMARTSET 97290 09/28/202409/28, 09/29/2023, 09/02/2022, Additional history exists GFR 10/05/2024 04/07/2024, 032 , 03/08/2023, Additional history exists HbA1c 10/05/2024 04/07/2024, 032 , 03/08/2023, Additional history exists Diabetic Eye Exam 12/09/2024 12/10/2023, , 06/15/2022, Additional history exists CKD PHOS USE SMARTSET 28400 04/07/2025 092 01/2024, 09/29/2023, 09/02/2022, Additional history [...] this encounter Medical Devices Implanted Type Area Control Cabinet Assembler Device Identifier Shelf Expiration Date Model / Serial / Lot Graft Yesicaa Triciawall [id number] - [id number] - [id number] Implanted:Qty: 1 on 03/22/2015 by Rob Gerard MD at OR [facility] [place] Right: Femoral Artery CR BARD : PERIPHERAL VASCULAR 12/09/2017 [id number] / [id number] / Stent Viab [id number] - [id number] Implanted:Qty: 1 on 03/22/2015 by Rob Gerard MD at OR [facility] Right: Femoral Artery [employer] 09/08/2016 [id number] / / [id number] Patch Xenosure 0.2msr5sm - [id number] Implanted:Qty: 1 on 06/11/2015 by Rob Gerard MD at OR [facility] Left: Femoral Artery [employer] 10/10/2017 E0.8P8 / / [id number] Description:tt Mx60 Iol Implanted:Qty: 1 on 02/22/2018 by Kris Hillman MD at OR [facility] Left: Eye BAUSCH & LOMB 10/09/2020 MX60 / [id number] / [id number] Mx60e +22.00d Iol Implanted:Qty: 1 on 03/01/2018 by Kris Hillman MD at OR [facility] Right: Eye BAUSCH & LOMB 09/08/2020 MX60E+22.0 0D / [id number] / [id number] documented as of this encounter Advance Directives [...] Power of Attor kendal? No Care Teams Cylinder Inspector And Tester Relationship Specialty Start Date End Date Abhishek Quintero MD [address] [place] [address] PCP - General Internal Medicine 01/01/12 documented as of this encounter
--- OUTSIDE RECORDS SUMMARY | 2024-09-13 17:52 | External Medical Summary | Summary of Care ---
Author Name Unknown Organization [facility] Address [address] [place] [address] Phone [phone] Care Team Providers Care Director Inpatient Headache Program Name Role Phone Abhishek Quintero MD Primary Care Provider + Reason for Visit * Reason Onset Date Comments Advice 04/26/2024 Encounter Details Date Type Department Care Team (Late st Contact Info) Description 04/26/2024 Telephone General Internal Medicine [facility] [address] [place] [address] Abhishek Quintero MD [address] [facility] [place] [address] Advice Allergies Active Allergy Reactions Criticality Noted Date Comments Pollen Other (Please comment) 05/24/2019 Watery eyes, runny nose Ragweed Other (Please comment) 05/24/2019 Watery eyes, runny nose documented as of this encounter (statuses as of 05/03/2024) Medications Medication Sig Dispensed Refills Start Date [...] as of this encounter (statuses as of 05/03/2024) Active Problems Problem Noted Date Diagnosed Date [...] as of this encounter (statuses as of 05/03/2024) Resolved Problems Problem Noted Date Diagnosed Date [...] as of this encounter (statuses as of 05/03/2024) Immunizations Name Administration Dates Next Due COVID-19 [...] (15 years old or older) No 07/15/19 Cognitive Status Response Date of Assessm ent Because of a physical, menta l, or emotional condition, do you have serious difficulty concentrating, remembering, or making decisions? (5 years old or older) No 07/15/2015 documented as of this encounter Miscellaneous Notes * Telephone Encounter - Abhishek Quintero MD - 05/03/2024 12:15 PM EDT Noted, agreed, would come back if cough persistent or worsens for dedicated visit for cough * Pt Handout (not on AVS) - Kourtney Negron RN - 04/28/2024 10:20 AM EDT Images from the original note were not included. [address]1814 Preventing Kidney Stones If you?ve had a kidney stone, you may worry that you?ll have another. Removing or passing your stone doesn?t prevent future stones. But with your healthcare provider?s help, you can reduce your risk of forming new stones. Follow up with your healthcare provider to help find new stones. Depending onyour medical condition, you may need to follow up every 3 to 12 months for the rest of your life. Drink lots of water Staying well-hydrated is the best way to reduce your risk of future stones. Drink 8 12-ounce glasses of water daily. Have 2 with each meal and 2 between meals. Keep track of your intake. Try keeping a pitcher of water nearby during the day and at night. Ask your healthcare provider about how much fluid you should have if you have kidney disease or kidney failure. Take medicines if needed Medicines, including vitamins and minerals, may be prescribed for certain types of stones. You may want to write your doses and medicine times on a calendar. Some medicines decrease stone-forming chemicals in your blood. Others help prevent those chemicals from crystallizing in urine. Still others help keep a normal acid balance in your urine. Follow your prescribed diet Your healthcare provider will tell you which foods contain the chemicals you should not have. Your healthcare provider may also suggest talking with a dietitian. They can help you plan meals you?ll enjoy that won't put you at risk for future stones. Bring your spouse, partner, or close friend with you when you meet with the dietitian so you can have support for your diet changes. You may be told to limit certain foods, depending on which type of stones you?ve had. You should limit the amount of salt in your food to about 2 grams a day. This will help prevent most types of kidney stones. Make sure you get an adequate amount of calcium in your diet. For calcium oxalate stones: Limit animal protein, such as meat, eggs, and fish. Limit grapefruit juice and alcohol. Limit high-oxalate foods (such as cola, tea, chocolate, spinach, rhubarb, wheat bran, and peanuts). For uric acid stones: Limit high-purine foods, such as mushrooms, peas, beans, anchovies, meat, poultry, shellfish, and organ meats. These foods increase uric acid production. For cystine stones: Limit high-methionine foods (fish is the most common, but include eggs and meats, too). These foods increase production of cystine. Last Reviewed Date: 2022 00:00:00 [id number] [employer]. All rights reserved. This information is not intended as a substitute for professional medical care. Always follow your healthcare professional's instructions. * Pt Handout (not on AVS) - Kourtney Negron RN - 04/28/2024 10:20 AM EDT Images from the original note were not included. 30253 Understanding Kidney Stones Your kidneys are robert-shaped organs. They help filter extra salts, waste, and water from your body.You need to drink enough water every day to help flush the extra salts into your urine. Aim for 6 to 8 8-ounce cups every day. What are kidney stones? Kidney stones are made up of chemical crystals that separate out from urine. These crystals clump together to make stones. They may stay in the kidney or move into the urinary tract. Why kidney stones form Kidneys form stones for many reasons. If you don?t drink enough water, for instance, you won?t haveenough urine to dilute chemicals. Then the chemicals may form crystals, which can develop into stones. Here are some reasons why kidney stones form: Fluid loss (dehydration). This can concentrate urine, causing stones to form. Certain foods. Some foods contain large amounts of the chemicals that sometimes crystallize intostones. Eating foods that contain a lot of meat or salt can lead to more kidney stones. Kidney infections. These infections foster stones by slowing urine flow or changing the acid balance of your urine. Family history. If family members have had kidney stones, you?re more likely to have them, too. A lack of certain substances in your urine. Some substances can help protect you from forming stones. If you don?t have enough of these in your urine, stone formation can increase. Where stones form Stones begin in the cup-shaped part of the kidney (calyx). Some stay in the calyx and grow. Others move into the kidney, pelvis, or the ureter. There they can lodge, block the flow of urine, and cause pain. Symptoms Many stones cause sudden, severe pain and bloody urine. Others cause upset stomach (nausea). Or they can cause a frequent need to pee. Or a burning feeling when you pee. Symptoms often depend on yourstone?s size and location. Fever may be a sign of a serious infection. Call your healthcare provider right away if you develop a fever. Last Reviewed Date: 2022 00:00:00 [id number] [employer]. All rights reserved. This information is not intended as a substitute for professional medical care. Always follow your healthcare professional's instructions. * Pt Handout (not on AVS) - Kourtney Negron RN - 04/28/2024 10:20 AM EDT Images from the original note were not included. Kidney Stones - Video These are mineral deposits. They form in your kidneys (the organs that filter your blood to produceurine). They can cause excruciating pain, but typically they don't cause physical harm to your body. To view the video go to this web address: [email or web address] Or, scan this QR code with your smart phone [employer]. * Pt Handout (not on AVS) - Kourtney Negron RN - 04/28/2024 10:19 AM EDT Images from the original note were not included. [id number] Low-Fat Diet A low-fat diet can help you lose weight. It also can help lower cholesterol and prevent symptoms ofgallbladder disease. In addition, choosing healthier unsaturated fats over less saturated healthy fats can help improve heart health. The average [place] diet contains up to 50% fat. This means thathalf of all calories come from fat (about 80 grams to 100 grams of fat per day). Choosing normal portions of foods from the list below can help lower your fat intake. Experts recommend that only 20% to 35% of your daily calories come from fat. The remaining 65% to 80% of calories will come from protein and carbohydrates. Breads OK: Whole-wheat or rye bread, zahida or soda crackers, ariel toast, plain rolls, whole-wheat bagels, Macanese muffins Don't have: Rolls and breads containing whole milk; waffles, pancakes, biscuits, corn bread; cheesecrackers, other flavored crackers, pastries, doughnuts Cereals OK: Oatmeal, whole-wheat, bran, multigrain, rice Don't have : Granola or other cereals that have oil, coconut, or more than 2 grams of fat per serving Cheese and eggs OK: Cheeses labeled low-fat; 3 whole eggs per week; egg whites and egg substitutes as desired Don't have: All other cheeses Desserts OK: Gelatin, slushy, ac food cake, meringues, nonfat yogurt, and puddings, or sherbet made with nonfat milk Don't have: Any other store-bought desserts, or desserts that have fat, whole milk, cream, chocolate, and coconut. Try to limit sweets and desserts. They may also contain high amounts of added sugars. Drinks OK: Nonfat milk, coffee, tea, water Don't have : Whole and reduced-fat milk, evaporated and condensed milk, hot chocolate mixes, milk shakes, malts, eggnog Fats OK: You may have up to 3 teaspoons of fat daily. This can be butter, margarine, mayonnaise, or healthy oils (canola or olive) Don't have: Cream, nondairy creams, cream cheese, gravies, and cream sauces Fruits OK: All fruits made without fat Don't have: Coconut, olives Meats, poultry, fish OK: Limit meat to 6 ounces daily (broiled, roasted, baked, grilled, or boiled). Buy lean cuts, and trim off the fat. Try beef, fish, pettit, pork, and canned fish packed in water; also, chicken and turkey with the skin removed. Don't have: Fried meats, fish, or poultry; fried eggs, and fish canned in oils; fatty meats, such as valladares, sausage, corned beef, hot dogs, and lunch meats; meats with gravies and sauces Potatoes, beans, pasta OK: Dried beans, split peas, lentils, potatoes, rice, pasta made without added fat Don't have: Tanzanian fries, potato chips, potatoes prepared with butter, refried beans Soups OK: Clear broth soups without fat and with allowed vegetables Don't have: Cream-based soups Vegetables OK: Fresh, frozen, canned or dried vegetables, all made without added fat Don't have: Fried vegetables and those prepared with butter, cream, sauces Other foods OK: Salsa, spices and herbs, mustard, ketchup, lemon, and vinegar. Though some foods like sugar, jelly, hard candy, marshmallows, honey, syrup, and salt contain no fat, it's still a good idea to watch portion sizes. The Dietary Guidelines for Americans recommend that less than 10% of daily caloriescome from added sugars. Don't have: Chocolate, nuts, coconut, and cream candies; sunflower, sesame, and other seeds; fried foods; cream sauces and gravies; pizza Last Reviewed Date: 2022 00:00:00 4892-8179 [employer]. All rights reserved. This information is not intended as a substitute for professional medical care. Always follow your healthcare professional's instructions. * Telephone Encounter - Kourtney Negron RN - 04/28/2024 10:18 AM EDT Patient notified , he did speak to urology and is scheduled for 12/03, but is on the wait list, his cough is still there occasionally he will call if worsens. I will also send some patient handouts onlow fat diet and kidney stones sent. Reason for Call: Advice Contact: Telephone Call Contact Type: Test Results Provider In-Basket: Yes Outcome: see note Face to face time spent with Patient (minutes): 0 Total Time including non face to face (minutes): 20 * Telephone Encounter - Kourtney Negron RN - 04/27/2024 11:42 AM EDT Patient left a VM, I tried to return call and had to leave another message. * Telephone Encounter - Kourtney Negron RN - 04/27/2024 8:26 AM EDT Left message for the patient to call the office. * Telephone Encounter - Kourtney Negron RN - 04/27/2024 8:25 AM EDT ----- Message from Abhishek Quintero MD sent at 04/26/2024 2:44 PM EDT ----- 1. Fatty liver, and enlarged liver. Will trend lft, low fat diet may help this 2. Let us know if cough worsens or persist 3. Right kidney stone, not causing issues now, but would see urology to make sure no issues down the line * Telephone Encounter - Gisele Fuentes MED [employer] - 04/26/2024 3:27 PM EDT Spoke with patient. He states that his cough hasn't went away. He did go see someone who told him it is reflux and they prescribed Pepcid for it. He states that the cough had improved but now he feels as though he is back where he started. He is willing to urology. Scheduling please schedule per Dr. Quintero's note. * Telephone Encounter - Gisele Fuentes MED ASSIST - 04/26/2024 3:27 PM EDT ----- Message from Abhishek Quintero MD sent at 04/26/2024 2:44 PM EDT ----- 1. Fatty liver, and enlarged liver. Will trend lft, low fat diet may help this 2. Let us know if cough worsens or persist 3. Right kidney stone, not causing issues now, but would see urology to make sure no issues down the line documented in this encounter Plan of Treatment Upcoming Encounters Date Type Department Care Team (Late st Contact Info) Description 05/09/2024 9:30 AM EDT Cardiac Studies Cardiac Studies, [facility] [address] [facility] [place] [address] 05/17/2024 8:30 AM EST Office Visit Cardiology, [facility] [address] [facility] [place] [id number] Bebo Baker MD [address] [place] [address] 07/07/2024 10:00 AM EST Nurse Only Ancillary [facility] [address] [facility] [place] [address] Nurse, Int Med [address] [facility] [place] [address] 11/21/2024 2:30 PM EDT Office Visit Urology, [facility] [address] [facility] [place] [address] Simeon Hillman MD [address] [place] [address] 01/04/2025 2:00 PM EDT Office Visit General Internal Medicine [facility] [address] [place] [address] Abhishek Quintero MD [address] [facility] [place] [address] Scheduled Procedures Name Priority Associated Diagnoses Date/Ti me COLONOSCOPY FLEXIBLE PROXIMAL DIAGNOSTIC Recall Screen for colon cancer Health Maintenance Due Date Last Done Comments Adult Wellness Visit 12/30/2011 Colonoscopy 07/25/2017 07/25/2012, 07/12, 08/18/2006 Depression Screening 03/08/2024 03/08/2023 Zoster Vaccines (2 of 2) 06/02/2024 04/07/2024 Albumin/Creatinine Ratio 09/28/2024 024, 09/02/2022, 08/13/2021, Additional history exists CKD HGB USE SMARTSET 29141 09/28/202409/28, 09/29/2023, 09/02/2022, Additional history exists GFR 10/05/2024 04/07/2024, 09/10, 03/08/2023, Additional history exists HbA1c 10/05/2024 04/07/2024, 09/10, 03/08/2023, Additional history exists Diabetic Eye Exam 12/09/2024 12/10/2023, , 06/15/2022, Additional history exists CKD PHOS USE SMARTSET 85074 04/07/202503/13, 09/29/2023, 09/02/2022, Additional history exists Diabetic [...] this encounter Medical Devices Implanted Type Area Grinder Lap Device Identifier Shelf Expiration Date Model / Serial / Lot Graft Impra Thinwall [id number] - [id number] - [id number] Implanted:Qty: 1 on 03/22/2015 by Rob Gerard MD at OR [facility] [place] Right: Femoral Artery CR BARD : PERIPHERAL VASCULAR 12/09/2017 [id number] / [id number] / Stent Viab [id number] - [id number] Implanted:Qty: 1 on 03/22/2015 by Rob Gerard MD at OR [facility] [place] Right: Femoral Artery [employer] 09/08/2016 [id number] / / [id number] Patch Xenosure [id number] - [id number] Implanted:Qty: 1 on 06/11/2015 by Rob Gerard MD at OR [facility] [place] Left: Femoral Artery [employer] 10/10/2017 [id number] / / [id number] Description:tt Mx60 Iol Implanted:Qty: 1 on 02/22/2018 by Kris Hillman MD at OR [facility] Left: Eye [employer] 10/09/2020 [id number] / [id number] / [id number] +22.00d Iol Implanted:Qty: 1 on 03/01/2018 by Kris Hillman MD at OR [facility] Right: Eye [employer] 09/08/2020 [id number]+[id number] 0D / [id number] / [id number] documented as of this encounter Advance Directives [...] of Attor kendal? No Care Teams Director Inpatient Headache Program Relationship Specialty Start Date End Date Abhishek Quintero MD [address] [place] [address] PCP - General Internal Medicine 01/01/12 documented as of this encounter
[2024-09-13 18:24] LABS: Appearance Urine Clear (Clear); Bilirubin Urine Negative (Negative); Blood Urine Negative (Negative); Color Urine Colorless; Glucose Urine UA Negative (Negative); Ketones Urine Negative (Negative); Leukocyte Esterase Urine Negative (Negative); Nitrite Urine Negative (Negative); Protein Urine Negative (Negative); Urobilinogen Urine Negative (Negative)
[2024-09-13] MEDS ORDERED: ALBUT/IPRATROP 3MG/0.5MG NEB 3 ML VIAL NEB SCH (19:00)
[2024-09-13] MEDS: LEVALBUTEROL 1.25 MG/3 ML NEB NEB SCH (19:40)
[2024-09-13] MEDS: SODIUM CHLOR 7% 4 ML NEB NEB SCH (19:40)
[2024-09-13] MEDS: IPRATROPIUM BROMIDE NEB SOLN 0.02% 0.5MG/2.5ML VIAL NEB SCH (19:40)
[2024-09-13] MEDS: INSULIN ASPART PER UNIT CHARGE SC SCH (21:10)
[2024-09-13] MEDS: FAMOTIDINE 20 MG TAB PO SCH (21:10)
[2024-09-13] MEDS: DOXYCYCLINE HYCLATE 100 MG CAP PO SCH (21:11)
[2024-09-13] MEDS: guaiFENesin 600 MG TABCR PO SCH (21:11)
[2024-09-13] MEDS: CLOPIDOGREL BISULFATE 75 MG TAB PO SCH (21:11)
[2024-09-13] MEDS ORDERED: Nursing to Pharmacy Communication SCH (21:15)
[2024-09-13] MEDS: ROSUVASTATIN CALCIUM 20 MG TAB PO SCH (21:32)
--- NOTE | 2024-09-13 22:02 | Electrocardiogram Report ---
Test Reason : Blood Pressure : */* mmHG Vent. Rate : 89 BPM Atrial Rate : 89 BPM P-R Int : 178 ms QRS Dur : 156 ms QT Int : 406 ms P-R-T Axes : 23 -48 104 degrees QTcB Int : 493 ms Normal sinus rhythm Left axis deviation Left bundle branch block Abnormal ECG When compared with ECG of 28-May-2017 13:53, QRS duration has increased Confirmed by Abel Banuelos ([id number]) on 09/13/2024 10:02:22 PM Referred By: REFERRED SELF Confirmed By: Abel Banuelos
[2024-09-14] MEDS ORDERED: DOXYCYCLINE HYCLATE 100 MG in DEXTROSE 5% MINI-B 100 ML IV SCH (03:00)
[2024-09-14 06:34] LABS: Hematocrit (blood only) 37.8 % (42.0-52.0); Hemoglobin 12.3 g/dl (14.0-18.0); Mean Corpuscular Hemoglobin 31.4 pg (25.0-34.0); Mean Corpuscular Hgb Conc 32.5 g/dL (32.0-36.0); Mean Corpuscular Volume 96.4 fL (80.0-100.0); Mean Platelet Volume 9.2 fL (9.4-12.4); Platelet Count 203 K/uL (130-400); RDW Coefficient of Variation 14.2 % (11.5-14.5); RDW Standard Deviation 50.3 fL (36.4-46.3); Red Blood Count 3.92 M/uL (4.70-6.10); White Blood Count 7.32 K/ul (4.8-10.8)
[2024-09-14 06:52] LABS: BUN Creatinine Ratio 26.8 (10-20); Calcium 8.6 mg/dl (8.6-10.3); Creatinine Clr Calc Pharmacy 45.7 ml/min; Magnesium 1.9 mg/dl (1.7-2.4); Potassium 5.6 mmol/L (3.5-5.1)
[2024-09-14] MEDS: amLODIPine BESYLATE 5 MG TAB PO SCH (08:33)
[2024-09-14] MEDS: ASPIRIN 81 MG ECTAB PO SCH (08:33)
[2024-09-14] MEDS: allopurinoL 300 MG TAB PO SCH (08:33)
--- NOTE | 2024-09-14 08:39 | Cardiology Consultation ---
Date of Consultation September 14, 2024 Assessment & Plan (1) Acute heart failure with preserved ejection fraction: (2) Acute hypoxic respiratory failure: (3) Moderate aortic stenosis: (4) CAP (community acquired pneumonia): Plan Patient admitted with acute respiratory failure with hypoxia - multifactorial secondary to acute HFpEF exacerbation, possible underlying CAP and COPD exacerbation. Symptoms improved with IV diuretics yesterday but unfortunately resulted in CHRIS and hyperkalemia. He current appears euvolemic this morning. Hold additional diuretics. Hold lisinopril/hctz. Would consider stopping lisinopril/HCTZ combination and starting lisinopril with loop diuretic once renal function improves. Moderate noted on echo, stable from prior echo in Apr 2024. Will monitor. Continue all other outpatient cardiac medications including ASA, amlodipine, plavix (for PVD), statin. Treatment for CAP/COPD per hospitalist. Case discussed with Dr. Fisher I spent a total of 60 minutes on the date of service in preparation, delivery, and documentation of the care provided to this patient, excluding any time spent in the performance of separately billed services. Latoya Wilcox PA-C Department of Cardiology, [facility] This chart was completed in part utilizing Speech Voice Recognition Software. Grammatical errors, random word insertions, pronoun errors, and incomplete sentences are an occasional consequence of this system due to software limitations, ambient noise, and hardware issues. Any formal questions or concerns about the content, text, or information contained within the body of this dictation should be directly addressed to the provider for clarification. Supervising Physician Co-Signing Physician Notes I have personally performed a history and physical examination on the patient. I have reviewed the advance practitioner's documentation, and I agree with, and take responsibility for the plan of care. 78-year-old male admitted with acute hypoxic respiratory failure Secondary to community-acquired pneumonia and COPD exacerbation. Mild component of acute heart failure on admission which has improved. Does not appear overtly volume overloaded on exam currently. Elevated creatinine with hyperkalemia noted after dose of IV loop diuretic. Hold additional diuretic therapy and lisinopril at this time. Repeat basic metabolic panel. Treatment of hyperkalemia, pneumonia, COPD exacerbation as per internal medicine. Results of echocardiogram reviewed with patient and at bedside. All questions answered to their satisfaction. Thank you for allow me to participate in the care of your patient. I spent a total of 35 minutes on the date of service in preparation, delivery, and documentation of the care provided to this patient, excluding any time spent in the performance of separately billed services. Mark Fisher DO, [facility] History of Present Illness Reason for Consultation: Acute respiratory failure/hypoxia; CHF Requesting Physician: [facility] Hospitalist Attending Physician: Dr. Fisher History of Present Illness Patient is a 78 year old male admitted to [facility] with worsening SOB over the last several days associated with worsening LE edema and cough with intermittent fevers. Upon arrival to the ER, found to have acute hypoxia, started on BIPAP. Treated with IV lasix, antibiotics, steroids. Possible underlying pneumonia vs COPD exacerbation also suspected. Echo since admission with preserved LVEF, stable moderate . Patient diuresed since admission with improved symptoms. Unfortunately creatinine trending higher today with hyperkalemia. At time of consult, patient resting in bed comfortably. STill requiring supplemental O2. Reports great improvement in his edema and fluid status. SOB/respiratory status also improving. No chest pain. Known to [facility] Cardiology, Dr. Baker. History includes: 1.Chronic left bundle branch block. 2.Atherosclerotic peripheral vascular disease with prior surgical revascularization. 3.Abdominal aortic aneurysm, moderate. 4.Chronic claudication. 5.Chronic renal insufficiency. 6.Hypertension. 7. Moderate nonrheumatic aortic stenosis Allergies Allergy/AdvReac Type Severity Reaction Status Date / Time No Known Allergies Allergy Verified 09/13/24 13:01 Home Medications Medication Instructions Recorded Confirmed Type allopurinol 300 mg tablet 300 mg PO DAILY 10/25/18 09/13/24 History acetaminophen 650 mg 650 mg PO Q8H PRN Pain 11/22/18 09/13/24 History tablet,extended release (Tylenol Arthritis Pain) aspirin 81 mg tablet,delayed 81 mg PO DAILY 11/22/18 09/13/24 History release clopidogrel 75 mg tablet (Plavix) 75 mg PO HS 11/22/18 09/13/24 History lisinopril 20 1 tab PO DAILY 11/22/18 09/13/24 History mg-hydrochlorothiazide 12.5 mg tablet (Zestoretic) amlodipine 10 mg tablet 10 mg PO DAILY 03/31/24 09/13/24 History propranolol 10 mg tablet 10 mg PO DAILY PRN Tremors 03/31/24 09/13/24 History famotidine 20 mg tablet 20 mg PO BID 09/13/24 09/13/24 History rosuvastatin 40 mg tablet 40 mg PO DAILY 09/13/24 09/13/24 History Patient History Medical History Smoking history Moderate aortic stenosis DM (diabetes mellitus), type 2 Abdominal aneurysm Gout Hyperlipidemia Hypertension Lumbar stenosis with neurogenic claudication L1-L2 mild to moderate, L2-L3 moderate, L3-L4 moderate to severe, L4-L5 moderate, L5-S1 mild to moderate 2018 Peripheral vascular disease Surgical History Status post lumbar spine surgery for decompression of spinal cord Posterior decompression at L3-L4 and L4-L5 by Dr. 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 Beliefs That Will Affect Care: None marital status: marital status details: Has 5 children Current Living Situation: Spouse current occupational status: retired Other Information That Helps Us Care for You: No Feels Safe at Home: Yes Safety Concerns: Feels Safe At This Time Assistive Devices: None Review of Systems Review of Systems: All systems reviewed & are unremarkable except as noted in HPI & below Physical Exam Constitutional: WD/WN, vitals as above + obese; no acute distress Neck: + thick neck Respiratory: + cough; no labored breathing Auscult ation: + diminished lung sounds, + crackles and + wheezes Cardiovascular: Rate/Rhythm: regular rate and regular rhythm Heart Sounds: + murmur (II/ systolic murmur LSB) Vessels: no JVD Extremities: no edema Gastrointestinal (Abdomen): normal bowel sounds, soft, nontender, no hepatosplenomegaly Musculoskeletal: no cyanosis or clubbing, extremities motor strength 5/5 Neurologic: PERRL, EOMI, accommodation nl, no face palsy, no dysarthria Results & Data Vital Signs (Past 12 Hours) Vital Signs Temp Pulse Pulse Resp BP Pulse Ox O2 Del Method 09/14/24 07:57 36.3 C L 88 18 117/65 94 Nasal Cannula 09/14/24 07:07 83 18 91 Nasal Cannula 09/14/24 02:43 36.6 C 84 17 116/66 91 Nasal Cannula 09/14/24 00:24 91 H 18 95 Nasal Cannula 09/13/24 22:35 36.9 C 91 H 20 140/70 95 Nasal Cannula 09/13/24 22:16 85 O2 Flow Rate 09/14/24 07:57 4 09/14/24 07:07 4 09/14/24 02:43 09/14/24 00:24 4 09/13/24 22:35 09/13/24 22:16 Laboratory Results Cardiac Enzymes 09/13/24 09/13/24 09/13/24 Range/Units 10:10 12:19 18:06 AST 13 (13-39) U/L Troponin I High Sens 27.6 H 33.1 H 45.5 H D (0-20) pg/ml B-Natriuretic Peptide 445 H (0-100) pg/ml 09/14/24 Range/Units 00:24 AST (13-39) U/L Troponin I High Sens 47.5 H (0-20) pg/ml B-Natriuretic Peptide (0-100) pg/ml Coagulation 09/13/24 Range/Units 10:10 PT 11.0 (9.0-12.0) Seconds B-Natriuretic Peptide 445 H (0-100) pg/ml CBC 09/13/24 09/14/24 Range/Units 10:10 06:02 WBC 11.13 H 7.32 (4.8-10.8) K/ul RBC 4.68 L 3.92 L (4.70-6.10) M/uL Hgb 14.5 12.3 L (14.0-18.0) g/dl Hct 45.3 37.8 L (42.0-52.0) % Plt Count 227 203 (130-400) K/uL Neut # (Auto) 9.24 H (1.40-6.50) K/uL Lymph # (Auto) 0.79 L (1.20-3.40) K/uL Darke # (Auto) 0.90 H (0.11-0.59) K/uL Eos # (Auto) 0.12 (0.00-0.50) K/uL Baso # (Auto) 0.06 (0.00-0.20) K/uL Comprehensive Metabolic Panel 09/13/24 09/14/24 Range/Units 10:10 06:02 Sodium 140 139 (136-145) mmol/L Potassium 4.6 5.6 H D (3.5-5.1) mmol/L Chloride 106 105 (98-107) mmol/L Carbon Dioxide 28 28 (21-32) mmol/L BUN 27 H 40 H (6-23) mg/dl Creatinine 1.17 1.49 H D (0.6-1.4) mg/dl Glucose 112 H 160 H (70-99(Fasting)) mg/dl Calcium 9.4 8.6 (8.6-10.3) mg/dl Direct Bilirubin 0.0 (0-0.2) mg/dl AST 13 (13-39) U/L ALT 10 (7-52) U/L Alkaline Phosphatase 108 H (34-104) U/L Total Protein 7.7 (6.0-8.3) gm/dl Albumin 4.7 (3.4-5.0) gm/dl Intake and Output 09/13/24 09/14/24 09/14/24 22:59 06:59 14:59 Intake Total 150 / 350 200 / 350 Output Total 300 / 525 Balance -150 / -175 200 / -175 Intake: IV 150 / 150 Doxycycline Hyclate 100 mg In 100 / 100 Dextrose 5% Mini-B 100 ml @ 50 mls/hr IV NOW STA Rx#:[id number] cefTRIAXone SODIUM 2,000 mg In 50 / 50 50 ml @ 100 mls/hr IV NOW STA Rx#:[id number] Oral 200 / 200 Output: Urine 300 / 525 Other: Weight 93 kg 91.7 kg Weight Measurement Method [facility] Diagnostic Findings Telemetry reviewed: NSR in the 80's. No arrhythmias EKG reviewed from admission 09/13/24: NSR with LAD LBBB no change from outpatient EKGs Echo reviewed dated 09/13/24: Normal LVEF at 55-60% Mild concentric LVH Septal motion is consistent with conduction abnormality Moderate aortic stenosis Mild MR Mild TR Estimated pulm pressure of 58 mmHg Chest X-Ray 09/13/24 10:07 XR chest 1V portable CLINICAL HISTORY: Chest pain, nonspecific COMPARISON STUDY: None FINDINGS: There is moderate cardiomegaly with mild pulmonary vascular congestion. There is mild elevation of the right hemidiaphragm. There is reticular and patchy opacity in the lung bases. No pneumothorax. IMPRESSION: 1. CHF. 2. Pneumonia versus atelectasis in the lung bases. Chest CTA 09/13/24 11:00 CT angio chest PE protocol CT DOSE: 861.78 mGy.cm HISTORY: acute resp fail, elevated bnp and trop, r/o PE. TECHNIQUE: Multiple CTA images of the chest were obtained after the intravenous administration of 120 ml Optiray. Coronal and sagittal MIPS were obtained from the axial data set and were submitted for review. All measurements were obtained according to NASCET criteria. A dose lowering technique was utilized adhering to the principles of ALARA. COMPARISON STUDY: None FINDINGS: There is cardiomegaly with prominence of the pulmonary vasculature consistent with CHF. There is minimal septal thickening in the lungs consistent with trace pulmonary edema. There is mild stranding consolidation in the dependent lung bases, atelectasis versus early pneumonia. No pleural effusion or pneumothorax. There is minimal mediastinal adenopathy, likely reactive. No pericardial effusion. There are diffuse coronary artery and aortic calcifications. No thoracic aortic aneurysm or dissection. No pulmonary embolism. There is moderate elevation of the right hemidiaphragm. There are diffuse thoracic spine degenerative changes. IMPRESSION: 1. No pulmonary embolism. 2. CHF with trace pulmonary edema. 3. Atelectasis versus early pneumonia in the lung bases. No significant pleural effusion. Prior Outside data reviewed: Echo report reviewed from Apr 2024: Interpretation Summary The left ventricular cavity size is normal. The LV wall thickness is moderately increased (concentric). The septal motion is abnormal consistent with left bundle branch block. The regional left ventricular wall motion is otherwise normal. The qualitative LV ejection fraction is 55-59% (normal). The left ventricular diastolic function is mildly abnormal (grade I). The aortic valve is moderately calcified. Moderate aortic valve stenosis is present. Mild mitral regurgitation is present. Mild tricuspid regurgitation is present. Mild pulmonary hypertension is present. Medications Administered Current Inpatient Medications Acetaminophen (Acetaminophen 325 Mg Tab) 650 mg PO Q4H PRN PRN Reason: Pain or Fever Stop: 10/13/24 14:32 Albuterol (Albut/Ipratrop 3mg/0.5mg Neb 3 Ml Vial) 3 ml NEB QIDR PRN; Protocol PRN Reason: sob or weakness Stop: 10/13/24 18:59 Allopurinol (Allopurinol 300 Mg Tab) 300 mg PO DAILY BRI Stop: 10/14/24 08:59 Amlodipine Besylate (Amlodipine Besylate 5 Mg Tab) 10 mg PO DAILY BRI Stop: 10/14/24 08:59 Aspirin (Aspirin 81 Mg Ectab) 81 mg PO DAILY BRI Stop: 10/14/24 08:59 Clopidogrel Bisulfate (Clopidogrel Bisulfate 75 Mg Tab) 75 mg PO HS BRI Stop: 10/13/24 20:59 Last Admin: 09/13/24 21:11 Dose: 75 mg Dextrose (Dextrose 50% 50 Ml Syringe) 25 - 50 ml IV UD PRN; Protocol PRN Reason: Hypoglycemia Protocol Stop: 10/13/24 16:40 Doxycycline Hyclate (Doxycycline Hyclate 100 Mg Cap) 100 mg PO BID BRI Stop: 09/18/24 20:59 Last Admin: 09/13/24 21:11 Dose: 100 mg Enoxaparin Sodium (Enoxaparin Inj 40 Mg/0.4 Ml Syr) 40 mg SQ Q24H BRI Stop: 10/13/24 15:59 Last Admin: 09/13/24 16:45 Dose: 40 mg Famotidine (Famotidine 20 Mg Tab) 20 mg PO BID BRI Stop: 10/13/24 20:59 Last Admin: 09/13/24 21:10 Dose: 20 mg Glucagon (Glucagon For Inj 1 Mg Vial) 1 mg SQ UD PRN; Protocol PRN Reason: Hypoglycemia Protocol Stop: 10/13/24 16:40 Glucose (Glucose 40% Gel 15 Gm Tube) 15 - 30 gm PO UD PRN; Protocol PRN Reason: Hypoglycemia Protocol Stop: 10/13/24 16:40 Glucose (Glucose 10 Tab/Tube) 4 - 8 tab PO UD PRN; Protocol PRN Reason: Hypoglycemia Protocol Stop: 10/13/24 16:40 Guaifenesin (Guaifenesin 600 Mg Tabcr) 600 mg PO Q12 BRI Stop: 10/13/24 20:59 Last Admin: 09/13/24 21:11 Dose: 600 mg Cefepime HCl (Maxipime 2000mg) 2,000 mg in 20 mls @ 5 mls/min IV Q12H [facility]; Protocol Stop: 09/18/24 15:29 Last Admin: 09/14/24 04:13 Dose: 5 mls/min Insulin Aspart (Insulin Aspart Per Unit Charge) 0 units SC ACHS BRI Stop: 10/13/24 20:59 Last Admin: 09/13/24 21:10 Dose: 1 units Ipratropium [place] (Ipratropium [place] Neb Soln 0.02% 0.5mg/2.5ml Vial) 0.5 mg NEB Q6R [facility] Stop: 10/13/24 18:59 Last Admin: 09/14/24 07:05 Dose: 0.5 mg Levalbuterol HCl (Levalbuterol 1.25 Mg/3 Ml Neb) 1.25 mg NEB Q6R [facility] Stop: 10/13/24 18:59 Last Admin: 09/14/24 07:05 Dose: 1.25 mg Miscellaneous (Carbohydrates For Hypoglycemia ) 15 - 30 gm PO UD PRN PRN Reason: Hypoglycemia Protocol Stop: 10/13/24 16:40 Ondansetron HCl (Ondansetron Inj 2 Mg/Ml 2 Ml Vial) 4 mg IV Q6H PRN PRN Reason: Nausea Stop: 10/13/24 14:32 Polyethylene Glycol (Polyethylene (Miralax) 17 Gm Pack) 17 gm PO DAILY PRN PRN Reason: Constipation Stop: 10/13/24 14:32 Rosuvastatin Calcium (Rosuvastatin Calcium 20 Mg Tab) 40 mg PO HS [facility] Stop: 10/13/24 21:29 Last Admin: 09/13/24 21:32 Dose: 40 mg Sodium Chloride (Sodium Chlor 7% 4 Ml Neb) 4 ml NEB BIDR BRI Stop: 10/13/24 18:59 Last Admin: 09/14/24 07:05 Dose: 4 ml
[2024-09-14] MEDS ORDERED: LISINOPRIL/HCTZ 20/12.5MG 1 TAB TAB PO SCH (09:00)
[2024-09-14] MEDS ORDERED: ROSUVASTATIN CALCIUM 20 MG TAB PO SCH (09:00)
[2024-09-14] MEDS ORDERED: CLOPIDOGREL BISULFATE 75 MG TAB PO SCH (09:00)
[2024-09-14] MEDS ORDERED: LEVALBUTEROL 1.25 MG/3 ML NEB NEB PRN (09:22)
--- NOTE | 2024-09-14 09:31 | Hospitalist Progress Note ---
Date of Service September 14, 2024 Assessment & Plan (1) Acute hypoxic respiratory failure: (2) Acute heart failure with preserved ejection fraction: (3) CHRIS (acute kidney injury): (4) Acute bronchitis: (5) Pulmonary hypertension: (6) Hyperkalemia: (7) Suspected chronic obstructive pulmonary disease based on initial evaluation: (8) DM (diabetes mellitus), type 2: (9) Moderate aortic stenosis: (10) Smoking history: Plan Patient with acute hypoxic respiratory failure. Still requiring 4 L of oxygen. Initially thought to be combination of heart failure and bronchitis. Patient now with acute kidney injury and hyperkalemia. Patient still requires hospital level care and intervention with these acute changes. Hold diuresis in the setting of acute kidney injury Hold lisinopril/hydrochlorothiazide in the setting of acute kidney injury and hyperkalemia. Continue to monitor renal function electrolytes Patient does have a long remote history of smoking, patient may have undiagnosed COPD, suspected at this point. Will transition from aggressive diuresis to treating more of a COPD exacerbation. Start oral prednisone, he received IV Solu-Medrol yesterday more definitive scheduled nebulizers and increase mucolytics Continue to titrate oxygen as able Continue to monitor glucose with coverage with short acting insulin Cardiology input pending, significant pulmonary hypertension noted on echocardiogram as well as aortic stenosis Admission and Anticipated Discharge Date Admission Date: September 13, 2024 Subjective Patient states his breathing feels better. Has had good urine output. No chest pain. Is not on oxygen at home. Has never needed inhalers in the past. Physical Exam Physical Exam: Constitutional: Alert, nontoxic HEENT: Mucous membranes moist. Lungs: Decreased breath sounds, prolonged expiratory phase, few rhonchi CV: S1-S2, regular Abdomen: Soft, nontender, nondistended Extremities: No significant edema Neuro: No focal deficits Psych: Cooperative, normal mood Results & Data Results & Data Vital Signs (Past 12 Hours) Vital Signs Temp Pulse Pulse Resp BP Pulse Ox O2 Del Method 09/14/24 08:39 Nasal Cannula 09/14/24 07:57 36.3 C L 88 18 117/65 94 Nasal Cannula 09/14/24 07:07 83 18 91 Nasal Cannula 09/14/24 02:43 36.6 C 84 17 116/66 91 Nasal Cannula 09/14/24 00:24 91 H 18 95 Nasal Cannula 09/13/24 22:35 36.9 C 91 H 20 140/70 95 Nasal Cannula 09/13/24 22:16 85 O2 Flow Rate 09/14/24 08:39 4 09/14/24 07:57 4 09/14/24 07:07 4 09/14/24 02:43 09/14/24 00:24 4 09/13/24 22:35 09/13/24 22:16 Diagnostic Findings Reviewed imaging, laboratory and diagnostic studies. Pertinent findings as below. WBC 7.3 Hemoglobin 12.3 Potassium 5.6 Creatinine 1.49 Reviewed echocardiogram, ejection fraction 55 to 60%, moderate aortic stenosis, Pulmonary hypertension
[2024-09-14] MEDS: predniSONE 50 MG TAB PO SCH (10:29)
[2024-09-14] MEDS: ALBUT/IPRATROP 3MG/0.5MG NEB 3 ML VIAL NEB SCH (10:33)
[2024-09-14 11:03] LABS: Estimated Average Glucose 131 mg/dl; Hemoglobin A1C 6.2 % (4.5-5.6)
[2024-09-14] MEDS: ACETAMINOPHEN 325 MG TAB PO PRN (15:41)
[2024-09-14 16:32] LABS: iSTAT Arterial Blood Gas HCO3 22 meg/L (19-24); iSTAT Arterial Blood Gas pCO2 40 mmHg (35-46); iSTAT Arterial Blood Gas pH 7.35 (7.35-7.45); iSTAT Arterial Blood Gas pO2 63 mmHg (80-95); iSTAT Carbon Dioxide 24 mmol/L (24-31); iSTAT Hematocrit 40 % (42-52); iSTAT Hemoglobin 13.6 g/dl (14.0-18.0); iSTAT Potassium 4.5 mmol/L (3.3-5.0); iSTAT Sodium 136 mmol/L (135-144)
--- NOTE | 2024-09-14 16:40 | Hospitalist Progress Note ---
Date of Service September 14, 2024 Assessment & Plan (1) Acute hypoxic respiratory failure: (2) Acute aspiration pneumonitis: (3) Acute heart failure with preserved ejection fraction: (4) CHRIS (acute kidney injury): (5) Acute bronchitis: (6) Pulmonary hypertension: (7) Hyperkalemia: (8) Suspected chronic obstructive pulmonary disease based on initial evaluation: (9) DM (diabetes mellitus), type 2: (10) Moderate aortic stenosis: (11) Smoking history: Plan Patient with acute aspiration pneumonitis after rapidly drinking a milkshake through a straw. With acute worsening of his hypoxic respiratory failure. No evidence of CO2 retention. Continue oxy mask oxygen support, titrate as able Neb treatment Encourage cough Will hold on any additional antibiotics at this time, suspect more reactive airway than an infectious process. Continue cefuroxime and doxycycline as pr eviously ordered Communication the plan of care with bedside nursing Anticipate patient will continue to improve as he continues to clear his airway Admission and Anticipated Discharge Date Admission Date: September 13, 2024 Subjective Called urgently to bedside by nurse, patient suddenly acutely hypoxic and complaining of some headache and chest discomfort. Patient reports that he just drank a milkshake. He said that he sucked really hard on the straw and drank it very fast. Immediately he got headache and some tightness across his chest and started coughing. Physical Exam Physical Exam: Constitutional: Alert, sitting on edge of the bed, moderate respiratory distress HEENT: Mucous membranes moist. Lungs: Decreased breath sounds, poor airflow, few fine wheezes and crackles, tachypneic CV: S1-S2, regular, tachycardic, squeaky systolic murmur Abdomen: Soft, nontender, nondistended Extremities: No significant edema Neuro: No focal deficits Psych: Cooperative, normal mood Patient reevaluated. Now resting more comfortably in bed. Tachypnea has improved Lungs: Airflow a little bit improved CV: Regular, tachycardic, systolic murmur Results & Data Results & Data Vital Signs (Past 12 Hours) Vital Signs Temp Pulse Resp BP Pulse Ox O2 Del Method O2 Flow Rate 09/14/24 14:44 91 H 18 92 Nasal Cannula 4 09/14/24 10:36 36.4 C L 81 19 121/62 92 Nasal Cannula 4 09/14/24 10:34 95 H 18 92 Nasal Cannula 4 09/14/24 08:39 Nasal Cannula 4 09/14/24 07:57 36.3 C L 88 18 117/65 94 Nasal Cannula 4 09/14/24 07:07 83 18 91 Nasal Cannula 4 Diagnostic Findings Stat ABG reviewed. Normal pH, no evidence of CO2 retention, pO2 63 on 8 L. Stat chest x-ray. Personally reviewed images, questionable increased infiltrate in right lower lobe Critical Care Time 45 (5) Acute bronchitis Bronchitis organism: unspecified organism Qualified Code(s): J20.9 - Acute bronchitis, unspecified
--- NOTE | 2024-09-14 17:18 | XRay Report ---
EXAM: XR chest 1V portable CLINICAL HISTORY: Aspiration. TECHNIQUE: An X-ray image of the chest is obtained in AP projection. COMPARISON: CR dated 05/28/2025 FINDINGS: Pulmonary Parenchyma: Prominent hilar vascular shadows Diffuse bilateral peribronchial cuffing is more evident at basal lung segments ( newly developed ) Elevated right diaphragmatic copula ( interval stability ) Bilateral basal hazy opacities more on the right side ( newly developed ) Unclear left costophrenic angle ( minimal effusion / pleural thickening) Right apical tiny pulmonary nodular opacity Heart and Mediastinum: The heart appears normal in size. Bony Thorax: The bony thorax appears intact without fractures or deformities. Thoracic spondylosis. Soft Tissues: Soft tissues overlying the chest wall are unremarkable. IMPRESSION: 1. Prominent hilar vascular shadows, possible pulmonary congestion (new finding). 2. Diffuse bilateral peribronchial cuffing more evident at basal lung segments and bilateral basal hazy opacities more on the right side ( newly developed ), likely inflammatory changes. 3. Elevated right diaphragmatic copula ( interval stability ). 4. Unclear left costophrenic angle, may denote minimal effusion / pleural thickening. 5. Right apical tiny pulmonary nodular opacity. Electronically signed by Kumar Yen 09-14-2024 5:18 PM
[2024-09-14] MEDS ORDERED: methylPREDNISolone 125 MG/2 ML VIAL IV STA (17:21)
[2024-09-14] MEDS: FUROSEMIDE 40 MG/4 ML VIAL IV ONE ×2 (17:28→18:08)
[2024-09-14] MEDS: methylPREDNISolone 125 MG in SYRINGE 0 ML IV STA (18:07)
[2024-09-14] MEDS: guaiFENesin 600 MG TABCR PO SCH (20:50)
[2024-09-14] MEDS: cefUROXime axetil 500 MG TAB PO SCH (20:51)
[2024-09-15 07:47] LABS: Mean Corpuscular Hemoglobin 31.3 pg (25.0-34.0); Mean Corpuscular Hgb Conc 32.5 g/dL (32.0-36.0); Mean Corpuscular Volume 96.4 fL (80.0-100.0); Mean Platelet Volume 9.3 fL (9.4-12.4); Platelet Count 214 K/uL (130-400); RDW Coefficient of Variation 14.3 % (11.5-14.5); RDW Standard Deviation 50.7 fL (36.4-46.3); Red Blood Count 4.15 M/uL (4.70-6.10); White Blood Count 11.05 K/ul (4.8-10.8)
[2024-09-15 08:01] LABS: BUN Creatinine Ratio 22.9 (10-20); Calcium 8.7 mg/dl (8.6-10.3); Creatinine Clr Calc Pharmacy 22.1 ml/min; Potassium 5.1 mmol/L (3.5-5.1)
--- NOTE | 2024-09-15 09:03 | XRay Report ---
XR chest 1V portable CLINICAL HISTORY: hypoxia COMPARISON STUDY: 09/14/2024 FINDINGS: There is stable cardiomegaly with mild pulmonary vascular congestion. Inspiration is shallo w. Stable moderate elevation of the right hemidiaphragm. Stable stranding opacity in the lung bases. No pneumothorax. IMPRESSION: Stable exam. ACT 112: Negative or not required by law. Electronically signed by: Cristiano Ramirez M.D. 09/15/2024 9:01 AM
--- NOTE | 2024-09-15 09:41 | Nephrology Consultation ---
Date of Consultation September 15, 2024 Assessment & Plan (1) CHRIS (acute kidney injury): ON Admission creat was 1.1 ( baseline) but he was very hypoxic that time and was already getting Hypoxic ATN. Then on top of that got IV contrast meaning toxic ATN on top. So this is case of 1 then 2 punch of Hypoxic and then toxic ATN. However most likely Hypoxia is the predominant driving force as creat quickly doubled from 1.1 to 1.5. Regardless it is hard to tell how bad this will get as Creat is rising pretty fast even now and is 3. If it keeps getting worse may even need Dialysis. Critical to maintain good BP and Good o2 level. With all his comorbid Dz he is at very high risk for renal decline. Hold SHAHRAM/ARB for now. No HCTZ. However Lasix can be given to improve Hypoxia and resp Status if felt needed. At this time we dont need to given Soft BP--Always has some edema and Lung exam is hard to assess--given underlying COPD Avoid NSAIDS and further contrast agents. Did update that the creat is rising very fast. If things dont turnaround we may even have to do dialysis withn next few days. BUt hopeful things will start getting better before. Not making much urine. Do Bladder scan later today. (2) Acute respiratory failure with hypoxia and hypercapnia: Combination CHF and Pneumonia and now also ? Aspiration. needing high o2. Plan Time spent 63 mins. Discussed with Cards and Primary team. History of Present Illness Reason for Consultation: CHRIS Attending Physician: Gerald Holman DO History of Present Illness 78/M with normal baseline creat despite many risk factors like----- PVD with claudication, chronic left bundle branch block, diet-controlled DM II, hypertension, moderate aortic stenosis,essential tremor and other medical problems. He presented on 09/13/2024 with increased shortness of breath over the past few weeks and found to have acute hypoxic respiratory failure. o2 sats was 75% when he came to ED.Was having Weight gain, Orthopnea and Increased LE edema and cough but unable to expectorate. Does have a 10-[id number] history but has not smoked in over 20 years. Denies a formal diagnosis of COPD. Does not require oxygen at baseline. Does follow with [facility] cardiology for moderate aortic stenosis and peripheral vascular disease. Last underwent echo in April 2024 with preserved EF of 55-59%, mildly abnormal left ventricular diastolic dysfunction, moderate aortic valve stenosis, mild pulmonary hypertension. Is compliant with medications. On Admission creat was 1.1 then 1.5 and today is 3. He had Contrast on 09/13/2024 at [facility]. Got lasix iv yesterday but not today. Even now needing 10 liters o2.Does not appear BP was low while inpt though. Making urine--no agudelo. ROS----12 Systems otherwise negative. N/V, abd pain, dysuria, diarrhea or constipation. Physical Exam Physical Exam: Constitutional: Alert, moderate respiratory distress. high o2 HEENT: Mucous membranes moist. Lungs: Decreased breath sounds, wheezes and crackles CV: S1-S2, regular, tachycardic, systolic murmur + Abdomen: Soft, nontender, nondistended Extremities: Trace edema Allergies Allergy/AdvReac Type Severity Reaction Status Date / Time No Known Allergies Allergy Verified 09/13/24 13:01 Home Medications Medication Instructions Recorded Confirmed Type allopurinol 300 mg tablet 300 mg PO DAILY 10/25/18 09/13/24 History acetaminophen 650 mg 650 mg PO Q8H PRN Pain 11/22/18 09/13/24 History tablet,extended release (Tylenol Arthritis Pain) aspirin 81 mg tablet,delayed 81 mg PO DAILY 11/22/18 09/13/24 History release clopidogrel 75 mg tablet (Plavix) 75 mg PO HS 11/22/18 09/13/24 History lisinopril 20 1 tab PO DAILY 11/22/18 09/13/24 History mg-hydrochlorothiazide 12.5 mg tablet (Zestoretic) amlodipine 10 mg tablet 10 mg PO DAILY 03/31/24 09/13/24 History propranolol 10 mg tablet 10 mg PO DAILY PRN Tremors 03/31/24 09/13/24 History famotidine 20 mg tablet 20 mg PO BID 09/13/24 09/13/24 History rosuvastatin 40 mg tablet 40 mg PO DAILY 09/13/24 09/13/24 History Patient History Medical History Smoking history Moderate aortic stenosis DM (diabetes mellitus), type 2 Abdominal aneurysm Gout Hyperlipidemia Hypertension Lumbar stenosis with neurogenic claudication L1-L2 mild to moderate, L2-L3 moderate, L3-L4 moderate to severe, L4-L5 moderate, L5-S1 mild to moderate 2018 Peripheral vascular disease Surgical History Status post lumbar spine surgery for decompression of spinal cord Posterior decompression at L3-L4 and L4-L5 by Dr. Pinto 2016 H/O thumb surgery History of shoulder surgery H/O vascular surgery Family History Other Diabetes Stroke Social History Smoking Status: Former smoker Tobacco Type: Cigarettes Smoking End Date: 60 pack years, quit in 1996; Hx Alcohol Use: Yes Alcohol type: beer Hx Substance Use: No Preferred Language: Bhutanese Communication Ability: Effective Visual Impairment: Limited Hearing Ability: Normal Exercise Science Instructor Required: No Beliefs That Will Affect Care: None marital status: marital status details: Has 5 children Current Living Situation: Spouse current occupational status: retired Other Information That Helps Us Care for You: No Feels Safe at Home: Yes Safety Concerns: Feels Safe At This Time Assistive Devices: None Results & Data Vital Signs (Past 12 Hours) Vital Signs Temp Pulse Pulse Pulse Resp BP BP 09/15/24 08:40 09/15/24 08:24 36.3 C L 93 H 17 107/55 L 09/15/24 07:08 87 18 09/15/24 03:53 36.3 C L 83 18 116/56 L 09/15/24 03:19 88 17 09/14/24 23:21 34.6 C L 96 H 20 114/65 09/14/24 22:58 110 H 22 09/14/24 22:41 110 H 09/14/24 22:00 Pulse Ox O2 Del Method O2 Flow Rate FiO2 09/15/24 08:40 High Flow Nasal Cannula 10 09/15/24 08:24 91 Nasal Cannula 11 09/15/24 07:08 91 Oxymask 8 09/15/24 03:53 95 CPAP 09/15/24 03:19 92 50 09/14/24 23:21 91 CPAP 09/14/24 22:58 93 50 09/14/24 22:41 09/14/24 22:00 BiPAP Laboratory Results CBC, renal Panel, Urine, Diagnostic Findings CXR and CT Angio of chest--independently reviewed and shows e/o CHF and most likely pneumonia also
--- NOTE | 2024-09-15 10:35 | Cardiology Progress Note ---
Date of Service September 15, 2024 Assessment & Plan (1) Acute hypoxic respiratory failure: (2) Acute heart failure with preserved ejection fraction: (3) Moderate aortic stenosis: (4) CAP (community acquired pneumonia): Plan 09/14/24: Patient admitted with acute respiratory failure with hypoxia - multifactorial secondary to acute HFpEF exacerbation, possible underlying CAP and COPD exacerbation. Symptoms improved with IV diuretics yesterday but unfortunately resulted in CHRIS and hyperkalemia. He current appears euvolemic this morning. Hold additional diuretics. Hold lisinopril/HCTZ. Would consider stopping lisinopril/HCTZ combination and starting lisinopril with loop diuretic once renal function improves. Moderate noted on echo, stable from prior echo in Apr 2024. Will monitor. Continue all other outpatient cardiac medications including ASA, amlodipine, plavix (for PVD), statin. Treatment for CAP/COPD per hospitalist. 09/15/24: Patient had recurrent aspiration event late yesterday with worsening hypoxia and requiring BIPAP. Treated with IV steroids and additional dose of IV lasix. Unfortunately creatinine climbed to 3.0 this morning. Hold lisinopril/hctz. Oxygen requirements improving this morning. He appears euvolemic on exam. Would hold off on additional diuretics today, unless respiratory status worsens. Continue all other outpatient cardiac meds including ASA, amlodipine, plavix (for PVD), and statin. Case discussed with Dr. Fisher I spent a total of 30 minutes on the date of service in preparation, delivery, and documentation of the care provided to this patient, excluding any time spent in the performance of separately billed services. Latoya Wilcox PA-C Department of Cardiology, [facility] This chart was completed in part utilizing Speech Voice Recognition Software. Grammatical errors, random word insertions, pronoun errors, and incomplete sentences are an occasional consequence of this system due to software limitations, ambient noise, and hardware issues. Any formal questions or concerns about the content, text, or information contained within the body of this dictation should be directly addressed to the provider for clarification. Admission and Anticipated Discharge Date Admission Date: September 13, 2024 Supervising Physician Co-Signing Physician Notes I have personally performed a history and physical examination on the patient. I have reviewed the advance practitioner's documentation, and I agree with, and take responsibility for the plan of care. 78-year-old male admitted with acute hypoxic respiratory failure Secondary to community-acquired pneumonia and COPD exacerbation. Mild component of acute heart failure on admission which has improved. Does not appear overtly volume overloaded on exam. Received additional dose of Lasix last evening with subsequent worsening of creatinine this morning. Hold diuretic therapy and lisinopril. Treatment of pneumonia, COPD exacerbation as per internal medicine. Speech/swallow evaluation. I spent a total of 30 minutes on the date of service in preparation, delivery, and documentation of the care provided to this patient, excluding any time spent in the performance of separately billed services. Mark Fisher DO, [facility] Subjective Patient had aspiration event yesterday after drinking a milkshake. worsening respiratory status noted, requiring BIPAP. Treated with steroids and one dose IV lasix. Patient resting comfortably. SOB improved from yesterday but still requiring high flow oxygen. No chest pain. Ongoing cough/wheeze reported. No edema. Review of Systems Review of Systems: All systems reviewed & are unremarkable except as noted in HPI & below Physical Exam Constitutional: WD/WN, vitals as above + obese; no acute distress Neck: + thick neck Respiratory: + cough; no labored breathing Auscult ation: + diminished lung sounds, + crackles and + wheezes Cardiovascular: Rate/Rhythm: regular rate and regular rhythm Heart Sounds: + murmur (II/ systolic murmur LSB) Vessels: no JVD Extremities: no edema Gastrointestinal (Abdomen): normal bowel sounds, soft, nontender, no hepatosplenomegaly Musculoskeletal: no cyanosis or clubbing, extremities motor strength 5/5 Neurologic: PERRL, EOMI, accommodation nl, no face palsy, no dysarthria Results & Data Vital Signs (Past 12 Hours) Vital Signs Temp Pulse Pulse Pulse Resp BP BP 09/15/24 08:40 09/15/24 08:24 36.3 C L 93 H 17 107/55 L 09/15/24 07:08 87 18 09/15/24 03:53 36.3 C L 83 18 116/56 L 09/15/24 03:19 88 17 09/14/24 23:21 34.6 C L 96 H 20 114/65 09/14/24 22:58 110 H 22 09/14/24 22:41 110 H Pulse Ox O2 Del Method O2 Flow Rate FiO2 09/15/24 08:40 High Flow Nasal Cannula 10 09/15/24 08:24 91 Nasal Cannula 11 09/15/24 07:08 91 Oxymask 8 09/15/24 03:53 95 CPAP 09/15/24 03:19 92 50 09/14/24 23:21 91 CPAP 09/14/24 22:58 93 50 09/14/24 22:41 Laboratory Results CBC 09/15/24 Range/Units 07:22 WBC 11.05 H (4.8-10.8) K/ul RBC 4.15 L (4.70-6.10) M/uL Hgb 13.0 L (14.0-18.0) g/dl Hct 40.0 L (42.0-52.0) % Plt Count 214 (130-400) K/uL Comprehensive Metabolic Panel 09/15/24 Range/Units 07:22 Sodium 138 (136-145) mmol/L Potassium 5.1 (3.5-5.1) mmol/L Chloride 103 (98-107) mmol/L Carbon Dioxide 27 (21-32) mmol/L BUN 70 H D (6-23) mg/dl Creatinine 3.06 H D (0.6-1.4) mg/dl Glucose 161 H (70-99(Fasting)) mg/dl Calcium 8.7 (8.6-10.3) mg/dl Intake and Output 09/14/24 09/15/24 09/15/24 22:59 06:59 14:59 Intake Total 200 / 800 Output Total 0 / 450 200 / 450 Balance 200 / 350 -200 / 350 Intake: Oral 200 / 800 Output: Urine 0 / 450 200 / 450 Other: Weight 81.81 kg Weight Measurement Method Built in [facility] Diagnostic Findings Telemetry reviewed: NSR and sinus tach ranging 80-110 bmp. EKG reviewed from 09/14/24: Sinus tachycardia at 107 LBBB (chronic) no change from previous Medications Administered Current Inpatient Medications Acetaminophen (Acetaminophen 325 Mg Tab) 650 mg PO Q4H PRN PRN Reason: Pain or Fever Stop: 10/13/24 14:32 Last Admin: 09/14/24 15:41 Dose: 650 mg Albuterol (Albut/Ipratrop 3mg/0.5mg Neb 3 Ml Vial) 3 ml NEB QIDR BRI; Protocol Stop: 10/14/24 09:29 Last Admin: 09/15/24 07:07 Dose: 3 ml Allopurinol (Allopurinol 300 Mg Tab) 300 mg PO DAILY BRI Stop: 10/14/24 08:59 Last Admin: 09/15/24 08:36 Dose: 300 mg Amlodipine Besylate (Amlodipine Besylate 5 Mg Tab) 10 mg PO DAILY BRI Stop: 10/14/24 08:59 Last Admin: 09/15/24 08:35 Dose: 10 mg Aspirin (Aspirin 81 Mg Ectab) 81 mg PO DAILY BRI Stop: 10/14/24 08:59 Last Admin: 09/15/24 08:35 Dose: 81 mg Cefuroxime Axetil (Cefuroxime Axetil 500 Mg Tab) 500 mg PO BID BRI Stop: 09/19/24 20:59 Last Admin: 09/15/24 08:36 Dose: 500 mg Clopidogrel Bisulfate (Clopidogrel Bisulfate 75 Mg Tab) 75 mg PO HS BRI Stop: 10/13/24 20:59 Last Admin: 09/14/24 20:50 Dose: 75 mg Dextrose (Dextrose 50% 50 Ml Syringe) 25 - 50 ml IV UD PRN; Protocol PRN Reason: Hypoglycemia Protocol Stop: 10/13/24 16:40 Doxycycline Hyclate (Doxycycline Hyclate 100 Mg Cap) 100 mg PO BID [facility] Stop: 09/18/24 20:59 Last Admin: 09/15/24 08:35 Dose: 100 mg Enoxaparin Sodium (Enoxaparin Inj 40 Mg/0.4 Ml Syr) 40 mg SQ Q24H BRI Stop: 10/13/24 15:59 Last Admin: 09/14/24 15:42 Dose: 40 mg Famotidine (Famotidine 20 Mg Tab) 20 mg PO BID BRI Stop: 10/13/24 20:59 Last Admin: 09/15/24 08:38 Dose: 20 mg Glucagon (Glucagon For Inj 1 Mg Vial) 1 mg SQ UD PRN; Protocol PRN Reason: Hypoglycemia Protocol Stop: 10/13/24 16:40 Glucose (Glucose 40% Gel 15 Gm Tube) 15 - 30 gm PO UD PRN; Protocol PRN Reason: Hypoglycemia Protocol Stop: 10/13/24 16:40 Glucose (Glucose 10 Tab/Tube) 4 - 8 tab PO UD PRN; Protocol PRN Reason: Hypoglycemia Protocol Stop: 10/13/24 16:40 Guaifenesin (Guaifenesin 600 Mg Tabcr) 1,200 mg PO Q12 BRI Stop: 10/14/24 20:59 Last Admin: 09/15/24 08:35 Dose: 1,200 mg Insulin Aspart (Insulin Aspart Per Unit Charge) 0 units SC ACHS BRI Stop: 10/13/24 20:59 Last Admin: 09/15/24 08:37 Dose: Not Given Levalbuterol HCl (Levalbuterol 1.25 Mg/3 Ml Neb) 1.25 mg NEB Q4H PRN PRN Reason: Shortness Of Breath Or Wheezing Stop: 10/14/24 09:29 Miscellaneous (Carbohydrates For Hypoglycemia ) 15 - 30 gm PO UD PRN PRN Reason: Hypoglycemia Protocol Stop: 10/13/24 16:40 Ondansetron HCl (Ondansetron Inj 2 Mg/Ml 2 Ml Vial) 4 mg IV Q6H PRN PRN Reason: Nausea Stop: 10/13/24 14:32 Polyethylene Glycol (Polyethylene (Miralax) 17 Gm Pack) 17 gm PO DAILY PRN PRN Reason: Constipation Stop: 10/13/24 14:32 Prednisone (Prednisone 50 Mg Tab) 50 mg PO DAILY BRI Stop: 10/14/24 09:29 Last Admin: 09/15/24 08:36 Dose: 50 mg Rosuvastatin Calcium (Rosuvastatin Calcium 20 Mg Tab) 40 mg PO HS [facility] Stop: 10/13/24 21:29 Last Admin: 09/14/24 20:50 Dose: 40 mg Sodium Chloride (Sodium Chlor 7% 4 Ml Neb) 4 ml NEB BIDR BRI Stop: 10/13/24 18:59 Last Admin: 09/15/24 07:07 Dose: 4 ml (4) CAP (community acquired pneumonia) Laterality: unspecified laterality Qualified Code(s): J18.9 - Pneumonia, unspecified organism
--- NOTE | 2024-09-15 12:22 | Hospitalist Progress Note ---
Date of Service September 15, 2024 Assessment & Plan (1) Acute hypoxic respiratory failure: (2) Acute aspiration pneumonitis: (3) Acute kidney injury (CHRIS) with acute tubular necrosis (ATN): (4) Acute heart failure with preserved ejection fraction: (5) Acute bronchitis: (6) Pulmonary hypertension: (7) Hyperkalemia: (8) Suspected chronic obstructive pulmonary disease based on initial evaluation: (9) DM (diabetes mellitus), type 2: (10) Moderate aortic stenosis: (11) Smoking history: Plan Patient with acute hypoxic respiratory failure suspect possibly due to aspiration events that happened even prior to admission. Recurrent aspiration event yesterday evening. Patient now requiring high flow oxygen, continue to titrate as able, continue neb treatments Continue steroids Continue oral antibiotics, adjust dose for renal function Consult pulmonary for further input and evaluation, suspect patient has underlying COPD that has not been previously diagnosed and may be more significant than recognized prior to admission. Patient's ATN continues to worsen, suspect combination of ATN due to hypoxia, contrast dye. Avoid nephrotoxins, no further diuresis, continue to monitor renal function Consult and communication with nephrology, agrees with above plan. Reviewed cardiology recommendations. Will place hold parameters on Norvasc to maintain adequate blood pressure for his HTN. Leukocytosis is not due to steroids Continue to monitor electrolytes and renal function Patient's on the phone during evaluation this morning. Answered questions. Admission and Anticipated Discharge Date Admission Date: September 13, 2024 Subjective Patient feeling a little bit better this morning. Wore BiPAP through the night and was transition to high flow nasal cannula this morning. Continues with a cough. Denies any chest pain. Physical Exam Physical Exam: Constitutional: Alert, significantly less distressed than last evening HEENT: Mucous membranes moist. Lungs: Decreased breath sounds, slightly improved airflow, faint wheezes throughout, coarse rhonchi CV: S1-S2, regular Abdomen: Soft, nontender, nondistended Extremities: No significant edema Neuro: No focal deficits Psych: Cooperative, normal mood Results & Data Results & Data Vital Signs (Past 12 Hours) Vital Signs Temp Pulse Pulse Pulse Resp BP Pulse Ox 09/15/24 11:18 89 18 70 L 09/15/24 10:59 36.4 C L 59 L 22 119/51 L 96 09/15/24 08:40 09/15/24 08:24 36.3 C L 93 H 17 107/55 L 91 09/15/24 07:08 87 18 91 09/15/24 03:53 36.3 C L 83 18 116/56 L 95 09/15/24 03:19 88 17 92 O2 Del Method O2 Flow Rate FiO2 09/15/24 11:18 High Flow Nasal Cannula 30 09/15/24 10:59 BiPAP 10.5 50 09/15/24 08:40 High Flow Nasal Cannula 10 09/15/24 08:24 Nasal Cannula 11 09/15/24 07:08 Oxymask 8 09/15/24 03:53 CPAP 09/15/24 03:19 50 Diagnostic Findings Reviewed imaging, laboratory and diagnostic studies. Pertinent findings as below. WBCs 11.0 Hemoglobin 13.0 Electrolytes stable Creatinine 3.06 Glucose 176 Personally reviewed chest x-ray, similar to yesterday. Some congestion with cephalization. No large consolidative infiltrate. (5) Acute bronchitis Bronchitis organism: unspecified organism Qualified Code(s): J20.9 - Acute bronchitis, unspecified
--- NOTE | 2024-09-15 12:28 | Electrocardiogram Report ---
Test Reason : Blood Pressure : */* mmHG Vent. Rate : 107 BPM Atrial Rate : 107 BPM P-R Int : 154 ms QRS Dur : 140 ms QT Int : 384 ms P-R-T Axes : 47 -21 130 degrees QTcB Int : 512 ms Sinus tachycardia Left atrial enlargement Left bundle branch block Abnormal ECG When compared with ECG of 13-Sep-2024 10:04, No significant change was found Confirmed by Los Schaefer ([id number]) on 09/15/2024 12:28:41 PM Referred By: REFERRED SELF Confirmed By: [place] Schaefer
[2024-09-15] MEDS: ENOXAPARIN INJ 30 MG/0.3 ML SYR SQ SCH (15:38)
--- NOTE | 2024-09-15 16:37 | Pulmonary Consultation ---
Date of Consultation September 15, 2024 Assessment & Plan (1) Elevated hemidiaphragm: (2) Bronchitis: (3) Acute aspiration pneumonitis: Plan Impression: 78-year-old male with progressive shortness of breath which is likely multifactorial. He has significant valvular heart disease and morbid obesity. He is deconditioned. Chest x-ray and CT scan show an elevated/eventrated right hemidiaphragm which appears chronic in nature. 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 Recommendations: 1. Dyspnea: Multifactorial. Unfortunately diuretics are limited currently by his kidney function. Will see how he responds. I think he would benefit from a pulmonary perspective with additional volume removal if possible. His x-ray demonstrates an elevated right hemidiaphragm which is chronic and likely contrib uting to some form of restrictive lung disease. This is likely worsened by his body habitus. Weight loss is recommended. 2. There is no evidence of pneumonia on his CT scan. Has been de-escalated to cefuroxime and doxycycline which seems reasonable to complete for 5 days but then antibiotics can be discontinued. 3. 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 Dynamic CT scanning or bronchoscopy could be considered to verify the diagnosis. Treatment would be weight loss and avoiding steroids. Positive airway pressure may be a consideration however the patient states he is not excited about the prospect of using CPAP. I do not think he is a candidate for tracheal stenting but this can be assessed in the outpatient setting. Will need outpatient PFTs 4. 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 Treatment with antihistamines, decongestants, saline sinus irrigation, topical nasal steroids would be recommended. 5. Aspiration event: No significant changes on imaging studies. Speech therapy evaluation in progress. 6. Hypoxemia: Wean oxygen as tolerated. Agree with incentive spirometry. Out of bed to chair as tolerated recommended. Above recommendations and plan were discussed extensively with the patient. Questions were answered to the best my ability. He expressed understanding and is in agreement with plan as outlined History of Present Illness Attending Physician: Gerald Holman, History of Present Illness Asked by hospitalist to assist in evaluation management this patient with hypoxemic respiratory failure, cough, and aspiration event. History is obtained from review the electronic medical record and discussion with the patient. The patient is a 78-year-old male who quit smoking over 25 years ago after about a 90-swln-here history. He does not carry a diagnosis of COPD and does not use inhalers or oxygen at baseline. He is fairly limited at baseline and unable to walk more than about 200 feet secondary to claudication and back pain. He is gained about 25 pounds over the last year. He is had increasing shortness of breath. He has had a cough secondary to postnasal drip. He was admitted to the hospital 09/13/2024 with complaints of shortness of breath and found to be hypoxemic. He is given a diagnosis of decompensated heart failure and bronchitis and placed on cefepime and doxycycline. He was also given Lasix. Last evening he had an aspiration event on a milkshake which required application of noninvasive positive pressure ventilation. The patient is currently been weaned off and is on 10 L high flow. He continues to have a cough which sounds consistent with tracheobronchial malacia. He has never had that diagnosis formally. He does not report significant phlegm production. No fevers chills or sweats. Allergies Allergy/AdvReac Type Severity Reaction Status Date / Time No Known Allergies Allergy Verified 09/13/24 13:01 Home Medications Medication Instructions Recorded Confirmed Type allopurinol 300 mg tablet 300 mg PO DAILY 10/25/18 09/13/24 History acetaminophen 650 mg 650 mg PO Q8H PRN Pain 11/22/18 09/13/24 History tablet,extended release (Tylenol Arthritis Pain) aspirin 81 mg tablet,delayed 81 mg PO DAILY 11/22/18 09/13/24 History release clopidogrel 75 mg tablet (Plavix) 75 mg PO HS 11/22/18 09/13/24 History lisinopril 20 1 tab PO DAILY 11/22/18 09/13/24 History mg-hydrochlorothiazide 12.5 mg tablet (Zestoretic) amlodipine 10 mg tablet 10 mg PO DAILY 03/31/24 09/13/24 History propranolol 10 mg tablet 10 mg PO DAILY PRN Tremors 03/31/24 09/13/24 History famotidine 20 mg tablet 20 mg PO BID 09/13/24 09/13/24 History rosuvastatin 40 mg tablet 40 mg PO DAILY 03/05/25 03/05/25 History Patient History Medical History Smoking history Moderate aortic stenosis DM (diabetes mellitus), type 2 Abdominal aneurysm Gout Hyperlipidemia Hypertension Lumbar stenosis with neurogenic claudication L1-L2 mild to moderate, L2-L3 moderate, L3-L4 moderate to severe, L4-L5 moderate, L5-S1 mild to moderate 2018 Peripheral vascular disease Surgical History Status post lumbar spine surgery for decompression of spinal cord Posterior decompression at L3-L4 and L4-L5 by Dr. Pinto 2017 H/O thumb surgery History of shoulder surgery H/O vascular surgery Family History Other Diabetes Stroke Social History Smoking Status: Former smoker Tobacco Type: Cigarettes Smoking End Date: 60 pack years, quit in 1996; Hx Alcohol Use: Yes Alcohol type: beer Hx Substance Use: No Preferred Language: German Communication Ability: Effective Visual Impairment: Limited Hearing Ability: Normal Shop Lead Required: No Beliefs That Will Affect Care: None marital status: marital status details: Has 5 children Current Living Situation: Spouse current occupational status: retired Other Information That Helps Us Care for You: No Feels Safe at Home: Yes Safety Concerns: Feels Safe At This Time Assistive Devices: None Review of Systems Review of Systems: Please refer to admission H&P. No additions or deletions Physical Exam Constitutional: WD/WN, vitals as above Neck: trachea midline, no thyromegaly Respiratory: + cough and + tachypneic; no respiratory distress and no labored breathing Auscultation: + rhonchi; no wheezes Cardiovascular: RRR, no murmur, no edema Gastrointestinal (Abdomen): normal bowel sounds, soft, nontender, no hepatosplenomegaly Musculoskeletal: Extremities: extremities normal to inspection Skin: no rashes, warm and dry Neurologic: Nonfocal exam Lymphatic: no cervical lymphadenopathy Results & Data Results & Data Vital Signs (Past 12 Hours) Vital Signs Temp Pulse Pulse Resp BP Pulse Ox O2 Del Method 09/15/24 15:01 96 H 20 93 Nasal Cannula 09/15/24 11:18 89 18 70 L High Flow Nasal Cannula 09/15/24 10:59 36.4 C L 59 L 22 119/51 L 96 BiPAP 09/15/24 08:40 High Flow Nasal Cannula 09/15/24 08:24 36.3 C L 93 H 17 107/55 L 91 Nasal Cannula 09/15/24 07:08 87 18 91 Oxymask O2 Flow Rate FiO2 09/15/24 15:01 12 09/15/24 11:18 30 09/15/24 10:59 10.5 50 09/15/24 08:40 10 09/15/24 08:24 11 09/15/24 07:08 8 Critical Care Results & Data Vital Signs (Past 12 Hours) Vital Signs Temp Pulse Pulse Resp BP Pulse Ox O2 Del Method 09/15/24 15:01 96 H 20 93 Nasal Cannula 09/15/24 11:18 89 18 70 L High Flow Nasal Cannula 09/15/24 10:59 36.4 C L 59 L 22 119/51 L 96 BiPAP 09/15/24 08:40 High Flow Nasal Cannula 09/15/24 08:24 36.3 C L 93 H 17 107/55 L 91 Nasal Cannula 09/15/24 07:08 87 18 91 Oxymask O2 Flow Rate FiO2 09/15/24 15:01 12 09/15/24 11:18 30 09/15/24 10:59 10.5 50 09/15/24 08:40 10 09/15/24 08:24 11 09/15/24 07:08 8 Lab & Micro Results (Past 24 Hours) RBC 4.15 M/uL (4.70-6.10) L 09/15/24 WBC 11.05 K/ul (4.8-10.8) H 09/15/24 Hgb 13.0 g/dl (14.0-18.0) L 09/15/24 Hct 40.0 % (42.0-52.0) L 09/15/24 MCV 96.4 fL (80.0-100.0) 09/15/24 MCH 31.3 pg (25.0-34.0) 09/15/24 MCHC 32.5 g/dL (32.0-36.0) 09/15/24 RDW Standard Deviation 50.7 fL (36.4-46.3) H 09/15/24 RDW Coefficient of Variation 14.3 % (11.5-14.5) 09/15/24 Plt Count 214 K/uL (130-400) 09/15/24 MPV 9.3 fL (9.4-12.4) L 09/15/24 Na 138 mmol/L (136-145) 09/15/24 K 5.1 mmol/L (3.5-5.1) 09/15/24 Cl 103 mmol/L (98-107) 09/15/24 CO2 27 mmol/L (21-32) 09/15/24 Anion Gap 8 (3-11) 09/15/24 BUN 70 mg/dl (6-23) H 09/15/24 Creatinine 3.06 mg/dl (0.6-1.4) H 09/15/24 BUN/Creatinine Ratio 22.9 (10-20) H 09/15/24 Glu 161 mg/dl (70-99(Fasting)) H 09/15/24 Ca 8.7 mg/dl (8.6-10.3) 09/15/24 Calcium Level 8.7 mg/dl (8.6-10.3) 09/15/24 07:22 Diagnostic Findings (Past 24 Hours) Chest X-Ray 09/14/24 15:49 EXAM: XR chest 1V portable CLINICAL HISTORY: Aspiration. TECHNIQUE: An X-ray image of the chest is obtained in AP projection. COMPARISON: dated 05/28/2025 FINDINGS: Pulmonary Parenchyma: Prominent hilar vascular shadows Diffuse bilateral peribronchial cuffing is more evident at basal lung segments ( newly developed ) Elevated right diaphragmatic copula ( interval stability ) Bilateral basal hazy opacities more on the right side ( newly developed ) Unclear left costophrenic angle ( minimal effusion / pleural thickening) Right apical tiny pulmonary nodular opacity Heart and Mediastinum: The heart appears normal in size. Bony Thorax: The bony thorax appears intact without fractures or deformities. Thoracic spondylosis. Soft Tissues: Soft tissues overlying the chest wall are unremarkable. IMPRESSION: 1. Prominent hilar vascular shadows, possible pulmonary congestion (new finding). 2. Diffuse bilateral peribronchial cuffing more evident at basal lung segments and bilateral basal hazy opacities more on the right side ( newly developed ), likely inflammatory changes. 3. Elevated right diaphragmatic copula ( interval stability ). 4. Unclear left costophrenic angle, may denote minimal effusion / pleural thickening. 5. Right apical tiny pulmonary nodular opacity. Electronically signed by Kumar Yen 09-14-2024 5:18 PM Chest X-Ray 09/15/24 08:49 XR chest 1V portable CLINICAL HISTORY: hypoxia COMPARISON STUDY: 09/14/2024 FINDINGS: There is stable cardiomegaly with mild pulmonary vascular congestion. Inspiration is shallow. Stable moderate elevation of the right hemidiaphragm. Stable stranding opacity in the lung bases. No pneumothorax. IMPRESSION: Stable exam. ACT 112: Negative or not required by law. Electronically signed by: Cristiano Ramirez M.D. 09/15/2024 9:01 AM I & O Totals 24 Hours 09/14/24 09/15/24 09/16/24 06:59 06:59 06:59 Intake Total 350 / 350 800 / 800 360 / 360 Output Total 525 / 525 450 / 450 Balance -175 / -175 350 / 350 360 / 360 Cumulative 09/13/24 09:44 thru 09/15/24 13:18 Intake Total 1510 Output Total 975 Balance 535 RT Ventilator Mngmt (Last Documented) Ventilator Ordered Settings Respiratory Rate 20 09/15/24 15:01 Fraction of Inspired Oxygen 50 09/15/24 10:59 Ventilator - PT Measurements Respiratory Rate 20 PG Care Time/CCT Total # of Minutes Spent Total Time Spent with Patient: Total time spent is greater than 50% in coordination of care (as documented) at patient's floor/unit and/or counseling patient: Coding Level of Care Code 80593 INT INP/OBS CARE 375MIN Diagnoses Elevated hemidiaphragm J98.6 Bronchitis J40 Acute aspiration pneumonitis J69.0
[2024-09-15] MEDS: cefUROXime axetil 250 MG TABLET PO SCH (20:43)
[2024-09-15] MEDS ORDERED: cefUROXime axetil 250 MG TABLET PO SCH (21:00)
[2024-09-15] MEDS: FAMOTIDINE 20 MG TAB PO SCH (21:22)
[2024-09-16 06:23] LABS: Hemoglobin 12.8 g/dl (14.0-18.0); Mean Corpuscular Hemoglobin 31.6 pg (25.0-34.0); Mean Corpuscular Hgb Conc 32.8 g/dL (32.0-36.0); Mean Corpuscular Volume 96.3 fL (80.0-100.0); Mean Platelet Volume 9.3 fL (9.4-12.4); Platelet Count 213 K/uL (130-400); RDW Coefficient of Variation 14.4 % (11.5-14.5); RDW Standard Deviation 50.7 fL (36.4-46.3); Red Blood Count 4.05 M/uL (4.70-6.10)
[2024-09-16 07:01] LABS: Creatinine Clr Calc Pharmacy 14.6 ml/min; Magnesium 2.2 mg/dl (1.7-2.4); Phosphorus 7.9 mg/dl (2.5-4.9); Potassium 5.3 mmol/L (3.5-5.1)
[2024-09-16] MEDS: MIDODRINE HCL 2.5 MG TAB PO SCH (08:42)
--- NOTE | 2024-09-16 10:49 | Cardiology Progress Note ---
Date of Service September 16, 2024 Assessment & Plan (1) Acute hypoxic respiratory failure: (2) Acute heart failure with preserved ejection fraction: (3) Moderate aortic stenosis: (4) CAP (community acquired pneumonia): Plan 09/14/24: Patient admitted with acute respiratory failure with hypoxia - multifactorial secondary to acute HFpEF exacerbation, possible underlying CAP and COPD exacerbation. Symptoms improved with IV diuretics yesterday but unfortunately resulted in CHRIS and hyperkalemia. He current appears euvolemic this morning. Hold additional diuretics. Hold lisinopril/HCTZ. Would consider stopping lisinopril/HCTZ combination and starting lisinopril with loop diuretic once renal function improves. Moderate noted on echo, stable from prior echo in Apr 2024. Will monitor. Continue all other outpatient cardiac medications including ASA, amlodipine, plavix (for PVD), statin. Treatment for CAP/COPD per hospitalist. 09/15/24: Patient had recurrent aspiration event late yesterday with worsening hypoxia and requiring BIPAP. Treated with IV steroids and additional dose of IV lasix. Unfortunately creatinine climbed to 3.0 this morning. Hold lisinopril/hctz. Oxygen requirements improving this morning. He appears euvolemic on exam. Would hold off on additional diuretics today, unless respiratory status worsens. Continue all other outpatient cardiac meds including ASA, amlodipine, plavix (for PVD), and statin. 09/16/24: Ongoing hypoxia requiring high flow oxygen overnight. Pulm consulted and appreciate recommendations. Clinically patient does not examine as in CHF exacerbation. Diuresis has been attempted with worsening renal dysfunction. Now CHRIS with hyperkalemia noted. Nephrology consulted. May need dialysis. Hold lisinopril/hctz. Borderline hypotension noted. Amlodipine on hold. Agree with initiation of midodrine. continue ASA and plavix and statin. Echo with preserved LVEF, moderate . Patient with intermittent bradycardia, possible blocked PAC's, possibly due to hyperkalemia. No symptoms. He is not on beta teresa. Will monitor. Case discussed with Dr. De La Rosa I spent a total of 30 minutes on the date of service in preparation, delivery, and documentation of the care provided to this patient, excluding any time spent in the performance of separately billed services. Latoya Wilcox PA-C Department of Cardiology, [facility] This chart was completed in part utilizing Speech Voice Recognition Software. Grammatical errors, random word insertions, pronoun errors, and incomplete sentences are an occasional consequence of this system due to software limitations, ambient noise, and hardware issues. Any formal questions or concerns about the content, text, or information contained within the body of this dictation should be directly addressed to the provider for clarification. Admission and Anticipated Discharge Date Admission Date: September 13, 2024 Supervising Physician Co-Signing Physician Notes I have personally performed a history and physical examination on the patient. I have reviewed the advance practitioner's documentation, and I agree with, and take responsibility for the plan of care. 78-year-old male admitted with acute hypoxic respiratory failure Secondary to community-acquired pneumonia and COPD exacerbation. Mild component of acute heart failure on admission. worsening renal function and respiratory status, hyperkalemia episodes of bradycardia had temporary dialysis cathter undergoing dialysis today , I spent a total of 20 minutes on the date of service in preparation, delivery, and documentation of the care provided to this patient, excluding any time spent in the performance of separately billed services. Subjective Patient resting in bed. reports feeling well despite needing high flow oxygen and worsening creatinine. Throughout the morning and overnight, he has periods of bradycardia in the 40's. He is asymptomatic. No pauses. Review of Systems Review of Systems: All systems reviewed & are unremarkable except as noted in HPI & below Physical Exam Constitutional: WD/WN, vitals as above + obese; no acute distress Neck: + thick neck Respiratory: + cough and + tachypneic Auscultation : + diminished lung sounds and + wheezes Cardiovascular: Rate/Rhythm: regular rate and regular rhythm Heart Sounds: + murmur (II/ systolic murmur LSB) Vessels: no JVD Extremities: no edema Gastrointestinal (Abdomen): normal bowel sounds, soft, nontender, no hepatosplenomegaly Musculoskeletal: no cyanosis or clubbing, extremities motor strength 5/5 Neurologic: PERRL, EOMI, accommodation nl, no face palsy, no dysarthria Results & Data Vital Signs (Past 12 Hours) Vital Signs Temp Pulse Pulse Pulse Resp BP Pulse Ox 09/16/24 09:39 09/16/24 08:49 82 09/16/24 07:30 36.3 C L 93 H 20 93/64 L 92 09/16/24 07:04 80 20 98 09/16/24 03:47 36.5 C 84 20 107/58 L 97 09/16/24 02:32 88 14 96 09/16/24 00:10 96 H 09/15/24 23:25 37.1 C 87 20 98/62 L 95 O2 Del Method O2 Flow Rate FiO2 09/16/24 09:39 High Flow Nasal Cannula 11 09/16/24 08:49 09/16/24 07:30 Nasal Cannula 11.0 09/16/24 07:04 Nasal Cannula 13 09/16/24 03:47 CPAP 09/16/24 02:32 40 09/16/24 00:10 09/15/24 23:25 CPAP Laboratory Results Telemetry reviewed: NSR with frequent PAC's; Runs of sinus bradycardia around 48 bmp. Possible blocked PAC's. EKG: Sinus bradycardia LBBB Possible blocked PAC's Diagnostic Findings Current Inpatient Medications Acetaminophen (Acetaminophen 325 Mg Tab) 650 mg PO Q4H PRN PRN Reason: Pain or Fever Stop: 10/13/24 14:32 Last Admin: 09/14/24 15:41 Dose: 650 mg Albuterol (Albut/Ipratrop 3mg/0.5mg Neb 3 Ml Vial) 3 ml NEB QIDR [facility]; Protocol Stop: 10/14/24 09:29 Last Admin: 09/16/24 10:56 Dose: 3 ml Allopurinol (Allopurinol 300 Mg Tab) 300 mg PO DAILY [facility] Stop: 10/14/24 08:59 Last Admin: 09/16/24 08:00 Dose: 300 mg Amlodipine Besylate (Amlodipine Besylate 5 Mg Tab) 10 mg PO DAILY [facility] Stop: 10/14/24 08:59 Last Admin: 09/15/24 08:35 Dose: 10 mg Aspirin (Aspirin 81 Mg Ectab) 81 mg PO DAILY [facility] Stop: 10/14/24 08:59 Last Admin: 09/16/24 08:42 Dose: 81 mg Cefuroxime Axetil (Cefuroxime Axetil 250 Mg Tablet) 250 mg PO Q12H [facility] Stop: 09/19/24 20:59 Last Admin: 09/16/24 07:59 Dose: 250 mg Clopidogrel Bisulfate (Clopidogrel Bisulfate 75 Mg Tab) 75 mg PO HS [facility] Stop: 10/13/24 20:59 Last Admin: 09/15/24 20:44 Dose: 75 mg Dextrose (Dextrose 50% 50 Ml Syringe) 25 - 50 ml IV UD PRN; Protocol PRN Reason: Hypoglycemia Protocol Stop: 10/13/24 16:40 Doxycycline Hyclate (Doxycycline Hyclate 100 Mg Cap) 100 mg PO BID BRI Stop: 09/18/24 20:59 Last Admin: 09/16/24 08:00 Dose: 100 mg Enoxaparin Sodium (Enoxaparin Inj 30 Mg/0.3 Ml Syr) 30 mg SQ Q24H BRI Stop: 10/15/24 15:59 Last Admin: 09/15/24 15:38 Dose: 30 mg Famotidine (Famotidine 20 Mg Tab) 20 mg PO Q12H BRI Stop: 10/15/24 21:59 Last Admin: 09/15/24 21:22 Dose: 20 mg Glucagon (Glucagon For Inj 1 Mg Vial) 1 mg SQ UD PRN; Protocol PRN Reason: Hypoglycemia Protocol Stop: 10/13/24 16:40 Glucose (Glucose 40% Gel 15 Gm Tube) 15 - 30 gm PO UD PRN; Protocol PRN Reason: Hypoglycemia Protocol Stop: 10/13/24 16:40 Glucose (Glucose 10 Tab/Tube) 4 - 8 tab PO UD PRN; Protocol PRN Reason: Hypoglycemia Protocol Stop: 10/13/24 16:40 Guaifenesin (Guaifenesin 600 Mg Tabcr) 1,200 mg PO Q12 BRI Stop: 10/14/24 20:59 Last Admin: 09/16/24 07:59 Dose: 1,200 mg Insulin Aspart (Insulin Aspart Per Unit Charge) 0 units SC ACHS BRI Stop: 10/13/24 20:59 Last Admin: 09/16/24 07:55 Dose: 5 units Levalbuterol HCl (Levalbuterol 1.25 Mg/3 Ml Neb) 1.25 mg NEB Q4H PRN PRN Reason: Shortness Of Breath Or Wheezing Stop: 10/14/24 09:29 Midodrine (Midodrine Hcl 2.5 Mg Tab) 5 mg PO TID@0800,1200,1700 BRI Stop: 10/16/24 07:59 Last Admin: 09/16/24 08:42 Dose: 5 mg Miscellaneous (Carbohydrates For Hypoglycemia ) 15 - 30 gm PO UD PRN PRN Reason: Hypoglycemia Protocol Stop: 10/13/24 16:40 Ondansetron HCl (Ondansetron Inj 2 Mg/Ml 2 Ml Vial) 4 mg IV Q6H PRN PRN Reason: Nausea Stop: 10/13/24 14:32 Polyethylene Glycol (Polyethylene (Miralax) 17 Gm Pack) 17 gm PO DAILY PRN PRN Reason: Constipation Stop: 10/13/24 14:32 Prednisone (Prednisone 50 Mg Tab) 50 mg PO DAILY BRI Stop: 10/14/24 09:29 Last Admin: 09/15/24 08:36 Dose: 50 mg Rosuvastatin Calcium (Rosuvastatin Calcium 20 Mg Tab) 40 mg PO HS BRI Stop: 10/13/24 21:29 Last Admin: 09/15/24 20:44 Dose: 40 mg Medications Administered Current Inpatient Medications Acetaminophen (Acetaminophen 325 Mg Tab) 650 mg PO Q4H PRN PRN Reason: Pain or Fever Stop: 10/13/24 14:32 Last Admin: 09/14/24 15:41 Dose: 650 mg Albuterol (Albut/Ipratrop 3mg/0.5mg Neb 3 Ml Vial) 3 ml NEB QIDR BRI; Protocol Stop: 10/14/24 09:29 Last Admin: 09/16/24 10:56 Dose: 3 ml Allopurinol (Allopurinol 300 Mg Tab) 300 mg PO DAILY BRI Stop: 10/14/24 08:59 Last Admin: 09/16/24 08:00 Dose: 300 mg Amlodipine Besylate (Amlodipine Besylate 5 Mg Tab) 10 mg PO DAILY BRI Stop: 10/14/24 08:59 Last Admin: 09/15/24 08:35 Dose: 10 mg Aspirin (Aspirin 81 Mg Ectab) 81 mg PO DAILY BRI Stop: 10/14/24 08:59 Last Admin: 09/16/24 08:42 Dose: 81 mg Cefuroxime Axetil (Cefuroxime Axetil 250 Mg Tablet) 250 mg PO Q12H BRI Stop: 09/19/24 20:59 Last Admin: 09/16/24 07:59 Dose: 250 mg Clopidogrel Bisulfate (Clopidogrel Bisulfate 75 Mg Tab) 75 mg PO HS BRI Stop: 10/13/24 20:59 Last Admin: 09/15/24 20:44 Dose: 75 mg Dextrose (Dextrose 50% 50 Ml Syringe) 25 - 50 ml IV UD PRN; Protocol PRN Reason: Hypoglycemia Protocol Stop: 10/13/24 16:40 Doxycycline Hyclate (Doxycycline Hyclate 100 Mg Cap) 100 mg PO BID BRI Stop: 09/18/24 20:59 Last Admin: 09/16/24 08:00 Dose: 100 mg Enoxaparin Sodium (Enoxaparin Inj 30 Mg/0.3 Ml Syr) 30 mg SQ Q24H BRI Stop: 10/15/24 15:59 Last Admin: 09/15/24 15:38 Dose: 30 mg Famotidine (Famotidine 20 Mg Tab) 20 mg PO Q12H BRI Stop: 10/15/24 21:59 Last Admin: 09/15/24 21:22 Dose: 20 mg Glucagon (Glucagon For Inj 1 Mg Vial) 1 mg SQ UD PRN; Protocol PRN Reason: Hypoglycemia Protocol Stop: 10/13/24 16:40 Glucose (Glucose 40% Gel 15 Gm Tube) 15 - 30 gm PO UD PRN; Protocol PRN Reason: Hypoglycemia Protocol Stop: 10/13/24 16:40 Glucose (Glucose 10 Tab/Tube) 4 - 8 tab PO UD PRN; Protocol PRN Reason: Hypoglycemia Protocol Stop: 10/13/24 16:40 Guaifenesin (Guaifenesin 600 Mg Tabcr) 1,200 mg PO Q12 BRI Stop: 10/14/24 20:59 Last Admin: 09/16/24 07:59 Dose: 1,200 mg Insulin Aspart (Insulin Aspart Per Unit Charge) 0 units SC ACHS BRI Stop: 10/13/24 20:59 Last Admin: 09/16/24 07:55 Dose: 5 units Levalbuterol HCl (Levalbuterol 1.25 Mg/3 Ml Neb) 1.25 mg NEB Q4H PRN PRN Reason: Shortness Of Breath Or Wheezing Stop: 10/14/24 09:29 Midodrine (Midodrine Hcl 2.5 Mg Tab) 5 mg PO TID@0800,1200,1700 BRI Stop: 10/16/24 07:59 Last Admin: 09/16/24 08:42 Dose: 5 mg Miscellaneous (Carbohydrates For Hypoglycemia ) 15 - 30 gm PO UD PRN PRN Reason: Hypoglycemia Protocol Stop: 10/13/24 16:40 Ondansetron HCl (Ondansetron Inj 2 Mg/Ml 2 Ml Vial) 4 mg IV Q6H PRN PRN Reason: Nausea Stop: 10/13/24 14:32 Polyethylene Glycol (Polyethylene (Miralax) 17 Gm Pack) 17 gm PO DAILY PRN PRN Reason: Constipation Stop: 10/13/24 14:32 Prednisone (Prednisone 50 Mg Tab) 50 mg PO DAILY BRI Stop: 10/14/24 09:29 Last Admin: 09/15/24 08:36 Dose: 50 mg Rosuvastatin Calcium (Rosuvastatin Calcium 20 Mg Tab) 40 mg PO HS BRI Stop: 10/13/24 21:29 Last Admin: 09/15/24 20:44 Dose: 40 mg (4) CAP (community acquired pneumonia) Laterality: unspecified laterality Qualified Code(s): J18.9 - Pneumonia, unspecified organism
--- NOTE | 2024-09-16 10:54 | Electrocardiogram Report ---
Test Reason : Blood Pressure : */* mmHG Vent. Rate : 46 BPM Atrial Rate : 46 BPM P-R Int : 162 ms QRS Dur : 140 ms QT Int : 444 ms P-R-T Axes : 44 -18 87 degrees QTcB Int : 388 ms Sinus bradycardia Possible Left atrial enlargement Left bundle branch block Abnormal ECG When compared with ECG of 14-Sep-2024 17:18, Vent. rate has decreased by 61 bpm QT has shortened Confirmed by Alejo Bearden ([id number]) on 09/16/2024 10:53:57 AM Referred By: REFERRED SELF Confirmed By: Alejo Bearden
--- NOTE | 2024-09-16 11:36 | Procedure Note ---
Procedure Note Date of Service September 16, 2024 CENTRAL LINE/TEMPORARY HD CATHETER PROCEDURE NOTE: Procedure: Temporary hemodialysis line catheter Provider: Quoc Foster MD Indication: Central Drug Administration, Poor Venous Access, Multiple Lab Draws Necessary, etc. Anesthesia: 5 cc 1% lidocaine locally Site: Right internal jugular Consent was signed and placed on the chart prior to procedure. Indication, risks, and benefits were explained at length. A time-out was completed verifying correct patient, procedure, site, positioning, and implants(s) or special equipment if applicable. Patients right neck was cleansed and draped in the typical sterile fashion using Chloraprep. The Internal Jugular Vein and Carotid Artery were identified using ultrasound. The superficial tissue was anesthetized using 5 mL of 1% lidocaine without epinephrine under direct visualization with the ultrasound. After adequate anesthetization was achieved, the Internal Jugular vein was cannulated under direct ultrasound guidance using an introducer needle on a syringe. Good venous blood return was maintained prior to removal of syringe from introducer needle. Using Seldinger Technique, a guide wire was advanced through the introducer needle without resistance. The introducer needle was removed and ultrasound hiral ges were obtained of the guide wire within the Internal Jugular Vein. A small incision was made in penetrating fashion at the guide wire insertion site utilizing an 11 blade scalpel. Serial dilators were advanced to the vessel without resistance. The final dilator was exchanged for a 13 cm temporary HD catheter with a pigtail port which was advanced into the vessel without resistance. The guide wire was removed intact from the catheter without issue. Claves were placed on the pigtail with confirmation of good blood flow from each lumen. Each port was easily flushed with sterile saline. The catheter was placed at the hub and sutured in place. BioPatch was applied to the catheter and a sterile Tegaderm dressing was applied over the catheter with careful attention to sterility. Patient tolerated procedure well. No immediate complications were met. Post procedure x-ray pending [facility] [place] Procedure Codes (Charges) Tubes, Drains, and Vasc Access Procedure 1: Tubes, Drains, and Vasc Access: [id number] Insertion of cannula for hemodialysis Procedure 2: Tubes, Drains, and Vasc Access: [id number] Ultrasound Guidance For Vascular Coding CPT Codes Tubes, Drains, and Vasc Access - Tubes, Drains, and Vasc Access: [id number] Insertion of cannula for hemodialysis ([id number]) Tubes, Drains, and Vasc Access - Tubes, Drains, and Vasc Access: [id number] Ultrasound Guidance For Vascular ([id number]) Additional Codes Date of Service (PG.SURGERY)
--- NOTE | 2024-09-16 11:41 | Pulmonology Progress Note ---
Date of Service September 16, 2024 Assessment & Plan (1) Elevated hemidiaphragm: (2) Bronchitis: (3) Acute aspiration pneumonitis: Plan Impression: 78-year-old male with progressive shortness of breath which is likely multifactorial. He has significant valvular heart disease and morbid obesity. He is deconditioned. Chest x-ray and CT scan show an elevated/eventrated right hemidiaphragm which appears chronic in nature. He may have tracheobronchial malacia based on the quality of his cough but postnasal drip may be contributing as well. He unfortunately has developed progressive renal failure and nephrology is requesting a temporary HD line Recommendations: 1. Dyspnea: Multifactorial. Unfortunately diuretics are limited currently by his kidney function. Unable to diurese at this point time due to kidney function. Nephrology is requested temporary HD access for fluid removal. Suspect his oxygen requirement will improve with fluid removal. Risks and benefits of a temporary HD line were discussed with the patient. He is agreeable to proceed and consent was obtained. His x-ray demonstrates an elevated right hemidiaphragm which is chronic and likely contributing to some form of restrictive lung disease. This is likely worsened by his body habitus. Weight loss is recommended. 2. There is no evidence of pneumonia on his CT scan. Has been de-escalated to cefuroxime and doxycycline which seems reasonable to complete for 5 days but then antibiotics can be discontinued. 3. I suspect the patient may have a degree of tracheobronchial malacia given the sound of his cough. Dynamic CT scanning or bronchoscopy could be considered to verify the diagnosis. Treatment would be weight loss and avoiding steroids. Positive airway pressure may be a consideration however the patient states he is not excited about the prospect of using CPAP. If the cough remains problematic, could consider trial of CPAP at 7 cmH2O to see if it offer some clinical benefit. 4. 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 Treatment with antihistamines, decongestants, saline sinus irrigation, topical nasal steroids would be recommended. 5. Aspiration event: Per speech therapy 6. Hypoxemia: Wean oxygen as tolerated. Agree with incentive spirometry. Out of bed to chair as tolerated recommended. Above recommendations and plan were discussed extensively with the patient. Questions were answered to the best my ability. He expressed understanding and is in agreement with plan as outlined Admission and Anticipated Discharge Date Admission Date: September 13, 2024 Subjective Patient seen and examined. EMR reviewed. The patient reports his breathing is okay. He continues to have a barking quality cough. He is not producing any phlegm. He denies any fevers chills or night sweats. No nausea or vomiting. No dizziness or lightheadedness. He has had slightly low blood pressure and antihypertensives have been held. Unfortunately kidney function has deteriorated and nephrology is requesting placement of a temporary HD line. Review of Systems 2 Review of Systems: All systems reviewed & are unremarkable except as noted in Subjective Physical Exam 2 Constitutional: WD/WN, vitals as above Neck: trachea midline, no thyromegaly Respiratory: + cough and + tachypneic; no respiratory distress and no labored breathing Auscultation: + rhonchi; no wheezes Cardiovascular: RRR, no murmur, no edema Gastrointestinal (Abdomen): normal bowel sounds, soft, nontender, no hepatosplenomegaly Musculoskeletal: Extremities: extremities normal to inspection Skin: no rashes, warm and dry Lymphatic: no cervical lymphadenopathy Results & Data Results & Data Vital Signs (Past 12 Hours) Vital Signs Temp Pulse Pulse Pulse Resp BP Pulse Ox 09/16/24 09:39 09/16/24 08:49 82 09/16/24 07:30 36.3 C L 93 H 20 93/64 L 92 09/16/24 07:04 80 20 98 09/16/24 03:47 36.5 C 84 20 107/58 L 97 09/16/24 02:32 88 14 96 09/16/24 00:10 96 H O2 Del Method O2 Flow Rate FiO2 09/16/24 09:39 High Flow Nasal Cannula 11 09/16/24 08:49 09/16/24 07:30 Nasal Cannula 11.0 09/16/24 07:04 Nasal Cannula 13 09/16/24 03:47 CPAP 09/16/24 02:32 40 09/16/24 00:10 Laboratory Results 09/16/24 06:12 09/16/24 06:12 Diagnostic Findings No new imaging PG Care Time/CCT Total # of Minutes Spent Total Time Spent with Patient: Total time spent is greater than 50% in coordination of care (as documented) at patient's floor/unit and/or counseling patient: Coding Level of Care Code 41097 SUB INP/OBS CARE 3/50MIN Diagnoses Elevated hemidiaphragm J98.6 Bronchitis J40 Acute aspiration pneumonitis J69.0
--- NOTE | 2024-09-16 12:10 | Nephrology Progress Note ---
Date of Service September 16, 2024 Assessment & Plan (1) CHRIS (acute kidney injury): Plan: etiology is ischemic ATN in setting of hypoxic respiratory failure and hypotension. Baseline creatinine in the low 1s. Creatinine up trending to 4.6 today. Patient also has hyperkalemia with potassium of 5.3. He continues to have significant respiratory distress. Chest x-ray and CT chest showed cardiomegaly with pulmonary edema. Discussed need for dialysis. Risks and benefits were discussed. Patient has consented to dialysis. Discussed with Dr. Foster and Dr. Holman of both agree with need for dialysis. Dr. Munoz for help with placing temporary dialysis catheter. Will dialyze him today for 3 hours target UF 2.5 L. (2) Acute respiratory failure with hypoxia and hypercapnia: Plan: Combination CHF and Pneumonia. needing high o2. will optimize volume status with dialysis as above Plan Time spent [address] Holman on tiger text. Admission and Anticipated Discharge Date Admission Date: September 13, 2024 Subjective Seen for acute renal failure complicated by hypoxic respiratory failure. Main complaint is shortness of breath. Patient is on 11 L of oxygen. Leg slightly swollen. He is not making much urine Review of Systems 2 Review of Systems: All other systems were reviewed and negative except as noted in HPI Physical Exam 2 Physical Exam: General exam: mild respiratory distress, on oxygen nasal cannula HEENT: Pupils are equal and reactive to light Neck: No JVD, neck is supple trachea is midline Respiratory system: wheezing bilaterally. Gastrointestinal: Abdomen is soft, non distended, non tender, bowel sounds are present CVS: Regular rate and rhythm. No murmurs, rubs or gallops Musculoskeletal: No joint or muscle tenderness Extremities: Non tender, 1+ edema, peripheral pulses are present Neuro: Oriented, no tremors, no focal neurological deficits Skin: No rashes Results & Data Vital Signs (Past 12 Hours) Vital Signs Temp Pulse Pulse Pulse Pulse Resp BP 09/16/24 11:39 58 L 20 09/16/24 11:38 36.6 C 47 L 22 92/46 L 09/16/24 09:39 09/16/24 08:49 82 09/16/24 07:30 36.3 C L 93 H 20 93/64 L 09/16/24 07:04 80 20 09/16/24 03:47 36.5 C 84 20 107/58 L 09/16/24 02:32 88 14 09/16/24 00:10 96 H Pulse Ox O2 Del Method O2 Flow Rate FiO2 09/16/24 11:39 93 Nasal Cannula 11 09/16/24 11:38 93 Nasal Cannula 11.0 09/16/24 09:39 High Flow Nasal Cannula 11 09/16/24 08:49 09/16/24 07:30 92 Nasal Cannula 11.0 09/16/24 07:04 98 Nasal Cannula 13 09/16/24 03:47 97 CPAP 09/16/24 02:32 96 40 09/16/24 00:10 Laboratory Results 09/16/24 06:12 09/16/24 06:12 WBC 14.40 H RBC 4.05 L MCV 96.3 MCH 31.6 MCHC 32.8 RDW Std Deviation 50.7 H RDW Coeff of Jasson 14.4 Plt Count 213 MPV 9.3 L Phosphorus 7.9 H
--- NOTE | 2024-09-16 12:16 | XRay Report ---
XR chest 1V portable CLINICAL HISTORY: line placement COMPARISON STUDY: 09/15/2024 FINDINGS: Stable cardiomegaly without pulmonary vascular congestion. Stable elevation of the right he midiaphragm. Stable mild stranding opacity in the lung bases. No other consolidation or pleural effus ion. There is an interval right neck central catheter. No pneumothorax. IMPRESSION: No pneumothorax. ACT 112: Negative or not required by law. Electronically signed by: Cristiano Ramirez M.D. 09/16/2024 12:14 PM
--- NOTE | 2024-09-16 13:15 | Hospitalist Progress Note ---
Date of Service September 16, 2024 Assessment & Plan (1) Acute hypoxic respiratory failure: (2) Acute aspiration pneumonitis: (3) Acute kidney injury (CHRIS) with acute tubular necrosis (ATN): (4) Acute heart failure with preserved ejection fraction: (5) Acute bronchitis: (6) Pulmonary hypertension: (7) Hyperkalemia: (8) Suspected chronic obstructive pulmonary disease based on initial evaluation: (9) DM (diabetes mellitus), type 2: (10) Moderate aortic stenosis: (11) Smoking history: Plan Patient remains critically ill with progressing renal failure now with electrolyte abnormalities and bradycardia. Requires hospital level care, specialty evaluation and interventions. Bedside conversation with the patient explaining his condition and need for potential hemodialysis. He was agreeable. Communication with nephrology. Reviewed laboratory findings. Due to rapidly progressing renal dysfunction, will proceed with central line and hemodialysis Communication with cardiology team, aware of bradycardia. May be related to renal dysfunction, agree with hemodialysis, continue to monitor Communication with respiratory team, will assist with placement of central line for hemodialysis Continue oxygen support, titrate as able, suspects may be able to titrate oxygen if able to remove any fluid with hemodialysis Patient's blood pressure has been borderline hypotensive, patient is asymptomatic however would like to ensure perfusion of the kidneys, midodrine started for pressure support, no indication for IV pressors at this point, hesitant to IV bolus due to evidence of some pulmonary congestion and exacerbating any pulmonary edema until patient has had hemodialysis. Based on pulmonary recommendations we will hold prednisone this morning Continue antibiotics Hold Norvasc due to relative hypotension Continue to monitor laboratory studies daily Update when available Admission and Anticipated Discharge Date Admission Date: September 13, 2024 Subjective Patient states he is actually feeling better despite being on 12 L of high flow oxygen. Denies chest pain, does not feel overly short of breath. Denies any lightheadedness or dizziness. Physical Exam Physical Exam: Constitutional: Alert, sitting on the edge of the bed, mild respiratory distress HEENT: Mucous membranes moist. Lungs: Decreased breath sounds, prolonged expiratory phase, rare expiratory wheeze, slightly improved airflow when compared to previous CV: S1-S2, irregular, bradycardic at times Abdomen: Soft, nontender, nondistended Extremities: No significant edema Neuro: No focal deficits Psych: Cooperative, normal mood Results & Data Results & Data Vital Signs (Past 12 Hours) Vital Signs Temp Pulse Pulse Pulse Pulse Resp BP 03/08/25 11:39 58 L 20 09/16/24 11:38 36.6 C 47 L 22 92/46 L 09/16/24 09:39 09/16/24 08:49 82 09/16/24 07:30 36.3 C L 93 H 20 93/64 L 09/16/24 07:04 80 20 09/16/24 03:47 36.5 C 84 20 107/58 L 09/16/24 02:32 88 14 Pulse Ox O2 Del Method O2 Flow Rate FiO2 09/16/24 11:39 93 Nasal Cannula 11 09/16/24 11:38 93 Nasal Cannula 11.0 09/16/24 09:39 High Flow Nasal Cannula 11 09/16/24 08:49 09/16/24 07:30 92 Nasal Cannula 11.0 09/16/24 07:04 98 Nasal Cannula 13 09/16/24 03:47 97 CPAP 09/16/24 02:32 96 40 Diagnostic Findings Reviewed imaging, laboratory and diagnostic studies. Pertinent findings as below. WBCs 14.4 Hemoglobin 12.8 Platelets of 213 Potassium 5.3 Creatinine 4.63 Phosphorus 7.9 Personally reviewed EKG, sinus bradycardia with bundle branch block Personally reviewed chest x-ray status post central line placement, No pneumothorax, congestion seems improved when compared to chest x-ray from yesterday (5) Acute bronchitis Bronchitis organism: unspecified organism Qualified Code(s): J20.9 - Acute bronchitis, unspecified
--- NOTE | 2024-09-16 15:47 | Procedure Note ---
Procedure Note Date of Service September 16, 2024 CENTRAL LINE PROCEDURE NOTE: Procedure: Revision of HD line Provider: Quoc Foster MD Indication: Central Drug Administration, Poor Venous Access, Multiple Lab Draws Necessary, etc. Anesthesia:Non Consent was Had been previously obtained. Was called to the dialysis unit as the dialysis catheter that we placed previously was unable to provide adequate flows despite reversing the lines. Nephrology requested that the dialysis line be exchanged for a longer 1 or replaced. Chlorhexidine and Betadine swabs were used to extensively clean the existing right internal jugular catheter. The dressing was taken down and additional chlorhexidine was used to scrub all of the ports and sites as well as the Surrounding skin tissue. Once the line was thoroughly scrubbed, a sterile drape was placed over the patient and the line delivered into the field aseptically. Additional chlorhexidine was used to scrub the ports at that point in time. The sutures were cut. The blue port Was removed. The line flushed and santos easily. A guidewire was advanced through the blue port into the vein. There was brisk brisk backbleeding. once the wire was threaded and in place, the existing dialysis catheter was backed out leaving the wire in place. A freshly flushed 24 Russian dialysis catheter was then advanced over the existing wire into the vein and the wire removed. All ports flushed and santos easily. The catheter was sutured in place and a sterile dressing was applied. The patient tolerated the procedure well. Estimated blood loss: 10 mL [facility] [place] Procedure Codes (Charges) Tubes, Drains, and Vasc Access Procedure 1: Tubes, Drains, and Vasc Access: [id number] Insertion of cannula for hemodialysis Coding CPT Codes Tubes, Drains, and Vasc Access - Tubes, Drains, and Vasc Access: [id number] Insertion of cannula for hemodialysis ([id number]) Additional Codes Date of Service (PG.SURGERY)
--- NOTE | 2024-09-16 15:57 | XRay Report ---
HISTORY: Line placement. TECHNIQUE: Portable AP radiograph of the chest COMPARISON: Chest radiograph dated 09/14/2024 FINDINGS: Right IJ catheterWith tip overlying the superior right atrium. No pneumothorax. Pulmonary vascular congestion. Mild bibasilar opacities. Top normal heart size. Trachea. Left-sided aortic arch. Right shoulder arthroplasty. No acute osseous abnormality. IMPRESSION: 1. Interval placement of a right IJ catheter with tip overlying the superior right atrium. No pneumothorax. Otherwise no significant interval change. 2. Mild bibasilar airspace opacities are similar. 3. Mild pulmonary vascular congestion. Electronically signed by Rob King 09-16-2024 3:57 PM
[2024-09-16] MEDS: HEPARIN SOD (PORCINE) 1000 UNIT/ML IV ONE (17:00)
[2024-09-17 07:16] LABS: Hematocrit (blood only) 38.9 % (42.0-52.0); Hemoglobin 12.9 g/dl (14.0-18.0); Mean Corpuscular Hemoglobin 31.2 pg (25.0-34.0); Mean Corpuscular Hgb Conc 33.2 g/dL (32.0-36.0); Mean Corpuscular Volume 94.2 fL (80.0-100.0); Mean Platelet Volume 9.5 fL (9.4-12.4); Platelet Count 193 K/uL (130-400); RDW Coefficient of Variation 14.2 % (11.5-14.5); RDW Standard Deviation 49.4 fL (36.4-46.3); Red Blood Count 4.13 M/uL (4.70-6.10); White Blood Count 8.71 K/ul (4.8-10.8)
[2024-09-17 07:29] LABS: BUN Creatinine Ratio 18.8 (10-20); Calcium 8.1 mg/dl (8.6-10.3); Creatinine Clr Calc Pharmacy 20.7 ml/min; Magnesium 2.1 mg/dl (1.7-2.4); Potassium 4.7 mmol/L (3.5-5.1)
[2024-09-17] MEDS: FAMOTIDINE 20 MG TAB PO SCH (08:25)
--- NOTE | 2024-09-17 09:53 | Pulmonology Progress Note ---
Date of Service September 17, 2024 Assessment & Plan (1) Elevated hemidiaphragm: (2) Bronchitis: (3) Acute aspiration pneumonitis: Plan Impression: 78-year-old male with progressive shortness of breath which is likely multifactorial. He has significant valvular heart disease and morbid obesity. He is deconditioned. Chest x-ray and CT scan show an elevated/eventrated right hemidiaphragm which appears chronic in nature. He may have tracheobronchial malacia based on the quality of his cough but postnasal drip may be contributing as well. He underwent dialysis with ultrafiltration yesterday with improvement in his oxygen saturations. Recommendations: 1. Dyspnea: Multifactorial. Fluid removal per nephrology. Will defer to them long-term plans for dialysis access if needed. His x-ray demonstrates an elevated right hemidiaphragm which is chronic and likely contributing to some form of restrictive lung disease. This is likely worsened by his body habitus. Weight loss is recommended. 2. There is no evidence of pneumonia on his CT scan. Has been de-escalated to cefuroxime and doxycycline which seems reasonable to complete for 5 days but then antibiotics can be discontinued. 3. 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 Would recommend outpatient polysomnography to see if he qualifies for CPAP or BiPAP machine. 4. 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 Treatment with antihistamines, decongestants, saline sinus irrigation, topical nasal steroids would be recommended. 5. Aspiration event: Per speech therapy. Appears resolved 6. Hypoxemia: Wean oxygen as tolerated. In spite of spirometry, ambulation, and out of bed to chair is much as possible. Above recommendations and plan were discussed extensively with the patient. Questions were answered to the best my ability. He expressed understanding and is in agreement with plan as outlined Admission and Anticipated Discharge Date Admission Date: September 13, 2024 Subjective Patient seen and examined. EMR reviewed. The patient is sleeping comfortably this morning. His cough is better. He tolerated dialysis yesterday after some initial issues with his HD cath. He is not complaining of any shortness of breath but his oxygen requirement has decreased since yesterday. He is using CPAP at night. He is not coughing at all at night and may be getting some benefit from airway stenting with positive airway pressure at night Review of Systems 2 Review of Systems: All systems reviewed & are unremarkable except as noted in Subjective Physical Exam 2 Constitutional: WD/WN, vitals as above Neck: trachea midline, no thyromegaly Respiratory: + cough and + tachypneic; no respiratory distress and no labored breathing Auscultation: + rhonchi; no wheezes Cardiovascular: RRR, no murmur, no edema Gastrointestinal (Abdomen): normal bowel sounds, soft, nontender, no hepatosplenomegaly Musculoskeletal: Extremities: extremities normal to inspection Skin: no rashes, warm and dry Lymphatic: no cervical lymphadenopathy Results & Data Results & Data Vital Signs (Past 12 Hours) Vital Signs Temp Pulse Pulse Pulse Resp BP Pulse Ox 09/17/24 08:59 09/17/24 08:53 58 L 09/17/24 07:27 36.4 C L 66 20 120/64 97 09/17/24 07:08 57 L 20 97 09/17/24 04:07 65 17 97 09/17/24 03:33 36.9 C 65 18 105/49 L 98 09/16/24 23:54 36.4 C L 58 L 20 125/65 95 09/16/24 23:16 72 25 H 96 09/16/24 22:59 77 O2 Del Method O2 Flow Rate FiO2 09/17/24 08:59 High Flow Nasal Cannula 9 09/17/24 08:53 09/17/24 07:27 Nasal Cannula 9.0 09/17/24 07:08 Nasal Cannula 11 09/17/24 04:07 45 09/17/24 03:33 CPAP 09/16/24 23:54 CPAP 09/16/24 23:16 45 09/16/24 22:59 Laboratory Results 09/17/24 06:35 09/17/24 06:35 PG Care Time/CCT Total # of Minutes Spent Total Time Spent with Patient: Total time spent is greater than 50% in coordination of care (as documented) at patient's floor/unit and/or counseling patient: Coding Level of Care Code 88311 SUB INP/OBS CARE 2/35MIN Diagnoses Elevated hemidiaphragm J98.6 Bronchitis J40 Acute aspiration pneumonitis J69.0
--- NOTE | 2024-09-17 13:04 | Hospitalist Progress Note ---
Date of Service September 17, 2024 Assessment & Plan (1) Acute hypoxic respiratory failure: (2) Acute kidney injury (CHRIS) with acute tubular necrosis (ATN): (3) Acute heart failure with preserved ejection fraction: (4) Acute aspiration pneumonitis: (5) Acute bronchitis: (6) Pulmonary hypertension: (7) Tracheobronchomalacia: (8) Hyperkalemia: (9) Suspected chronic obstructive pulmonary disease based on initial evaluation: (10) DM (diabetes mellitus), type 2: (11) Moderate aortic stenosis: (12) Smoking history: Plan Patient presenting with acute hypoxic respiratory failure suspect combination of chronic lung disease and heart failure preserved ejection fraction who had progressive renal failure. Patient's respiratory failure has improved with hemodialysis, continue to titrate oxygen as able Continue hemodialysis as directed by nephrology, at this point acute kidney failure with plans for temporary dialysis. Patient's intermittent bradycardia has improved, heart rate still fluctuating between 50 and 90. May continue to improve as he gets additional hemodialysis. Communication with cardiology team Continue to monitor renal function Complete 5-day course of antibiotics Updated patient's via phone. Admission and Anticipated Discharge Date Admission Date: September 13, 2024 Subjective Patient reports feeling fatigued. But feels that his breathing is better. Always eager to go home. Physical Exam Physical Exam: Constitutional: Alert, nontoxic, no acute distress HEENT: Mucous membranes moist., Temporary hemodialysis catheter right jugular Lungs: Decreased breath sounds, improved airflow, decreased crackles CV: S1-S2, regular Abdomen: Soft, nontender, nondistended Extremities: No significant edema Neuro: No focal deficits Psych: Cooperative, normal mood Results & Data Results & Data Vital Signs (Past 12 Hours) Vital Signs Temp Pulse Pulse Pulse Resp BP Pulse Ox 09/17/24 11:30 36.8 C 61 20 108/58 L 93 09/17/24 11:09 62 20 92 09/17/24 10:46 90 09/17/24 10:41 96 09/17/24 08:59 09/17/24 08:53 58 L 09/17/24 07:27 36.4 C L 66 20 120/64 97 09/17/24 07:08 57 L 20 97 09/17/24 04:07 65 17 97 09/17/24 03:33 36.9 C 65 18 105/49 L 98 O2 Del Method O2 Flow Rate FiO2 09/17/24 11:30 Nasal Cannula 5.0 09/17/24 11:09 Nasal Cannula 5 09/17/24 10:46 High Flow Nasal Cannula 5 09/17/24 10:41 High Flow Nasal Cannula 7 09/17/24 08:59 High Flow Nasal Cannula 9 09/17/24 08:53 09/17/24 07:27 Nasal Cannula 9.0 09/17/24 07:08 Nasal Cannula 11 09/17/24 04:07 45 09/17/24 03:33 CPAP Diagnostic Findings Reviewed imaging, laboratory and diagnostic studies. Pertinent findings as below. WBCs 8.7 Hemoglobin 12.9 Potassium 4.7 Creatinine 3.24, improved Phosphorus 6.0, improved Magnesium 2.1 (5) Acute bronchitis Bronchitis organism: unspecified organism Qualified Code(s): J20.9 - Acute bronchitis, unspecified
[2024-09-17] MEDS: HEPARIN SOD (PORCINE) 1000 UNIT/ML IV ONE (14:18)
--- NOTE | 2024-09-17 14:41 | Nephrology Progress Note ---
Date of Service September 17, 2024 Assessment & Plan (1) CHRIS (acute kidney injury): Plan: etiology is ischemic ATN in setting of hypoxic respiratory failure and hypotension. Baseline creatinine in the low 1s. Creatinine up trending to 4.6 today. Patient also has hyperkalemia with potassium of 5.3. He continues to have significant respiratory distress. Chest x-ray and CT chest showed cardiomegaly with pulmonary edema. Discussed need for dialysis. Risks and benefits were discussed. Patient has consented to dialysis. Patient had the temporary dialysis catheter placed on 09/16/2024. Will dialyze him today for 2 hours target UF 3 L. he will be dialyzed again tomorrow for 3 hours target UF 2.5 L (2) Acute respiratory failure with hypoxia and hypercapnia: Plan: Combination CHF and Pneumonia. needing high o2. will optimize volume status with dialysis as above Plan Time spent 45 mins. Admission and Anticipated Discharge Date Admission Date: September 13, 2024 Subjective He feels better today. Still on high amount of oxygen. No leg swelling. Review of Systems 2 Review of Systems: All other systems were reviewed and negative except as noted in HPI Physical Exam 2 Physical Exam: General exam: mild respiratory distress, on oxygen nasal cannula HEENT: Pupils are equal and reactive to light Neck: No JVD, neck is supple trachea is midline Respiratory system: wheezing bilaterally. Gastrointestinal: Abdomen is soft, non distended, non tender, bowel sounds are present CVS: Regular rate and rhythm. No murmurs, rubs or gallops Musculoskeletal: No joint or muscle tenderness Extremities: Non tender, 1+ edema, peripheral pulses are present Neuro: Oriented, no tremors, no focal neurological deficits Skin: No rashes Results & Data Vital Signs (Past 12 Hours) Vital Signs Temp Pulse Pulse Pulse Resp BP Pulse Ox 09/17/24 13:52 66 09/17/24 11:30 36.8 C 61 20 108/58 L 93 09/17/24 11:09 62 20 92 09/17/24 10:46 90 09/17/24 10:41 96 09/17/24 08:59 09/17/24 08:53 58 L 09/17/24 07:27 36.4 C L 66 20 120/64 97 09/17/24 07:08 57 L 20 97 09/17/24 04:07 65 17 97 09/17/24 03:33 36.9 C 65 18 105/49 L 98 O2 Del Method O2 Flow Rate FiO2 09/17/24 13:52 09/17/24 11:30 Nasal Cannula 5.0 09/17/24 11:09 Nasal Cannula 5 09/17/24 10:46 High Flow Nasal Cannula 5 09/17/24 10:41 High Flow Nasal Cannula 7 09/17/24 08:59 High Flow Nasal Cannula 9 09/17/24 08:53 09/17/24 07:27 Nasal Cannula 9.0 09/17/24 07:08 Nasal Cannula 11 09/17/24 04:07 45 09/17/24 03:33 CPAP Laboratory Results 09/17/24 06:35 09/17/24 06:35 WBC 8.71 RBC 4.13 L MCV 94.2 MCH 31.2 MCHC 33.2 RDW Std Deviation 49.4 H RDW Coeff of Jasson 14.2 Plt Count 193 MPV 9.5 Phosphorus 6.0 H
[2024-09-18 06:45] LABS: BUN Creatinine Ratio 20.4 (10-20); Calcium 8.4 mg/dl (8.6-10.3); Creatinine Clr Calc Pharmacy 24.4 ml/min; Magnesium 2.1 mg/dl (1.7-2.4); Phosphorus 5.2 mg/dl (2.5-4.9); Potassium 4.7 mmol/L (3.5-5.1)
--- NOTE | 2024-09-18 09:17 | Cardiology Progress Note ---
Date of Service September 18, 2024 Assessment & Plan (1) Bradycardia: (2) Nonsustained ventricular tachycardia: (3) LBBB (left bundle branch block): (4) Moderate aortic stenosis: (5) Acute hypoxic respiratory failure: (6) CAP (community acquired pneumonia): Plan 09/14/24: Patient admitted with acute respiratory failure with hypoxia - multifactorial secondary to acute HFpEF exacerbation, possible underlying CAP and COPD exacerbation. Symptoms improved with IV diuretics yesterday but unfortunately resulted in CHRIS and hyperkalemia. He current appears euvolemic this morning. Hold additional diuretics. Hold lisinopril/HCTZ. Would consider stopping lisinopril/HCTZ combination and starting lisinopril with loop diuretic once renal function improves. Moderate noted on echo, stable from prior echo in Apr 2024. Will monitor. Continue all other outpatient cardiac medications including ASA, amlodipine, plavix (for PVD), statin. Treatment for CAP/COPD per hospitalist. 09/15/24: Patient had recurrent aspiration event late yesterday with worsening hypoxia and requiring BIPAP. Treated with IV steroids and additional dose of IV lasix. Unfortunately creatinine climbed to 3.0 this morning. Hold lisinopril/hctz. Oxygen requirements improving this morning. He appears euvolemic on exam. Would hold off on additional diuretics today, unless respiratory status worsens. Continue all other outpatient cardiac meds including ASA, amlodipine, plavix (for PVD), and statin. 09/16/24: Ongoing hypoxia requiring high flow oxygen overnight. Pulm consulted and appreciate recommendations. Clinically patient does not examine as in CHF exacerbation. Diuresis has been attempted with worsening renal dysfunction. Now CHRIS with hyperkalemia noted. Nephrology consulted. May need dialysis. Hold lisinopril/hctz. Borderline hypotension noted. Amlodipine on hold. Agree with initiation of midodrine. continue ASA and plavix and statin. Echo with preserved LVEF, moderate . Patient with intermittent bradycardia, possible blocked PAC's, possibly due to hyperkalemia. No symptoms. He is not on beta teresa. Will monitor. 09/18/24: Complaints of feeling tired and "queasy in the stomach." Telemetry with bradycardia in the upper 40's, frequent blocked PAC's, and one short run of nonsustained ventricular tachycardia this morning at 8:04:49 On Midodrine for blood pressure, ? contributing to bradycardia. * Decrease midodrine to 2.5 mg three times per day. * Check TSH. Potassium and magnesium OK. * Continue to avoid AV naomi blockers for now (was on Propranolol as outpatient for tremor) * Likely requires permanent pacemaker implantation at some point though not ideal candidate at present. * Maintain telemetry Admission and Anticipated Discharge Date Admission Date: September 13, 2024 Supervising Physician Co-Signing Physician Notes Attending attestation: Case reviewed with the advanced practitioner. I have personally performed a history and physical examination on the patient. I have reviewed the advanced practitioner's documentation on the date of service referenced in note, and I agree with, and take responsibility for the plan of care. I spent a total of 20 minutes coordinating, documenting, and providing care for this patient excluding time spent in the performance of separately billed services or time spent by another provider. Jefferson Cueto, Subjective Patient seen and examined. Chart, medications, and telemetry reviewed. Complaints: Little queasy this morning. Tired. No chest chest pain, palpitations, shortness of breath, orthopnea, PND, dizziness, near syncope, fevers, or chills Telemetry: Sinus bradycardia at 48 bpm currently, Frequent atrial ectopy, blocked PAC's. One six beat run of VT at 8:04:49 AM September 13, 2024 TTE: EF 55-60%. Mild concentric LVH. Trileaflet aortic valve with moderate calcific aortic stenosis, mild mitral and tricuspid regurgitation. Estimated systolic pulmonary pressure 58 mmHg. Physical Exam Physical Exam: General: NAD. HENT: Normocephalic. Atraumatic. Eyes: PER. Conjunctiva pink, sclera clear. Neck: Right sided hemodialysis catheter. Heart: Bradycardic at 48 bpm. Grade II/ systolic murmur. Lungs: Clear to auscultation. Abdomen: +BS. Soft. Nontender. No masses or organomegaly. Extremities: No clubbing, cyanosis, or edema. Limited neurological examination is without focal deficits. Pulses: Posterior tibial=1/4. Results & Data Vital Signs (Past 12 Hours) Vital Signs Temp Pulse Pulse Pulse Pulse Resp BP 09/18/24 07:15 36.4 C L 46 L 20 125/58 L 09/18/24 07:03 46 L 18 09/18/24 03:56 36.7 C 53 L 16 128/76 09/18/24 01:15 82 09/17/24 22:44 36.3 C L 72 20 129/65 Pulse Ox O2 Del Method O2 Flow Rate 09/18/24 07:15 93 Nasal Cannula 3 09/18/24 07:03 92 Nasal Cannula 3 09/18/24 03:56 95 Nasal Cannula 4 09/18/24 01:15 09/17/24 22:44 92 Nasal Cannula 4 Laboratory Results Comprehensive Metabolic Panel 09/18/24 Range/Units 05:36 Sodium 139 (136-145) mmol/L Potassium 4.7 (3.5-5.1) mmol/L Chloride 102 (98-107) mmol/L Carbon Dioxide 29 (21-32) mmol/L BUN 56 H (6-23) mg/dl Creatinine 2.74 H D (0.6-1.4) mg/dl Glucose 86 (70-99(Fasting)) mg/dl Calcium 8.4 L (8.6-10.3) mg/dl Intake and Output 09/17/24 09/18/24 09/18/24 22:59 06:59 14:59 Intake Total 350 / 350 Output Total 175 / 375 Balance 350 / -25 -175 / -25 Intake: Oral 350 / 350 Output: Urine 175 / 375 Other: Hemodialysis Ultrafiltration 2,800 Amount Weight 88 kg (6) CAP (community acquired pneumonia) Laterality: unspecified laterality Qualified Code(s): J18.9 - Pneumonia, unspecified organism
[2024-09-18 09:37] LABS: Hep B Surface Ag with confirm Negative (Negative)
[2024-09-18 09:45] LABS: Hepatitis B Surface Ab Quant < 3.00 mIU/mL (>or=10mIU/mL Immune); Hepatitis B Surface Antibody Non-Immune
--- NOTE | 2024-09-18 09:50 | Pulmonology Progress Note ---
Date of Service September 18, 2024 Assessment & Plan (1) Elevated hemidiaphragm: (2) Bronchitis: (3) Acute aspiration pneumonitis: Plan Impression: 78-year-old male with progressive shortness of breath which is likely multifactorial. He has significant valvular heart disease and morbid obesity. He is deconditioned. Chest x-ray and CT scan show an elevated/eventrated right hemidiaphragm which appears chronic in nature. He may have tracheobronchial malacia based on the quality of his cough but postnasal drip may be contributing as well. He underwent dialysis with ultrafiltration yesterday with improvement in his oxygen saturations. Recommendations: 1. Dyspnea: Multifactorial. Continues to improve with volume management per nephrology via hemodialysis. Chronic RIGHT sided elevated hemidiaphragm as discussed before. 2. There is no evidence of pneumonia on his CT scan. Has been de-escalated to cefuroxime and doxycycline which seems reasonable to complete for 5 days but then antibiotics can be discontinued. 3. 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 Would recommend outpatient polysomnography to see if he qualifies for CPAP or BiPAP machine. 4. 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 Treatment with antihistamines, decongestants, saline sinus irrigation, topical nasal steroids would be recommended. 5. Aspiration event: Per speech therapy. Appears resolved 6. Hypoxemia: Continue to titrate down supplemental oxygen as tolerated. Continue with spirometry, ambulation, and out of bed to chair is much as possible. Thank you for allowing us to participate in the care of this pleasant patient. Admission and Anticipated Discharge Date Admission Date: September 13, 2024 Subjective Patient seen and evaluated at bedside. Complained of some bleeding from his HD cath site last night, but appears controlled this time. Improvement in his shortness of breath. No complaints of chest pain. Continues to tolerate dialysis well. Review of Systems Review of Systems: Please refer to admission H&P. No additions or deletions Physical Exam Physical Exam: VITAL SIGNS Vital signs and nursing notes were reviewed. GENERAL 78-year-old male appearing his stated age who is in no acute distress. Communicates well with provider and answers questions appropriately. SKIN RIGHT IJ HD Cath in place. Dressing with scant dried blood. NOSE Midline and without cyanosis. No epistaxis or purulent drainage noted. MOUTH/OROPHARYNX Without perioral cyanosis. NECK IJ site as above. Neck with FROM. LUNGS Chest wall evaluation demonstrates normal chest wall A:P diameter. Auscultation reveals basilar rales. No wheezing. CARDIAC RRR with S1/S2. No murmur, rubs, or gallops appreciated. PSYCH A&Ox3 and cooperates fully with examiner. Pt is very pleasant and interacts well with examiner. Results & Data Results & Data Vital Signs (Past 12 Hours) Vital Signs Temp Pulse Pulse Pulse Pulse Resp BP 09/18/24 07:15 36.4 C L 46 L 20 125/58 L 09/18/24 07:03 46 L 18 09/18/24 03:56 36.7 C 53 L 16 128/76 09/18/24 01:15 82 09/17/24 22:44 36.3 C L 72 20 129/65 Pulse Ox O2 Del Method O2 Flow Rate 09/18/24 07:15 93 Nasal Cannula 3 09/18/24 07:03 92 Nasal Cannula 3 09/18/24 03:56 95 Nasal Cannula 4 09/18/24 01:15 09/17/24 22:44 92 Nasal Cannula 4 PG Care Time/CCT Total # of Minutes Spent Total Time Spent with Patient: Total time spent is greater than 50% in coordination of care (as documented) at patient's floor/unit and/or counseling patient: Coding Level of Care Code 50587 SUB INP/OBS CARE 2/35MIN Diagnoses Elevated hemidiaphragm J98.6 Bronchitis J40 Acute aspiration pneumonitis J69.0
[2024-09-18 10:33] LABS: Hematocrit (blood only) 36.8 % (42.0-52.0); Hemoglobin 12.7 g/dl (14.0-18.0); Mean Corpuscular Hemoglobin 32.3 pg (25.0-34.0); Mean Corpuscular Hgb Conc 34.5 g/dL (32.0-36.0); Mean Corpuscular Volume 93.6 fL (80.0-100.0); Mean Platelet Volume 9.8 fL (9.4-12.4); Platelet Count 191 K/uL (130-400); RDW Coefficient of Variation 13.9 % (11.5-14.5); RDW Standard Deviation 47.2 fL (36.4-46.3); Red Blood Count 3.93 M/uL (4.70-6.10); White Blood Count 9.09 K/ul (4.8-10.8)
[2024-09-18] MEDS: MIDODRINE HCL 2.5 MG TAB PO SCH (12:20)
[2024-09-18] MEDS: HEPARIN SOD (PORCINE) 1000 UNIT/ML IV ONE (13:33)
[2024-09-18] MEDS: HEPARIN SOD (PORCINE) 1000 UNIT/ML IV SCH (13:33)
--- NOTE | 2024-09-18 14:06 | Nephrology Progress Note ---
Date of Service September 18, 2024 Assessment & Plan (1) CHRIS (acute kidney injury): Plan: etiology is ischemic ATN in setting of hypoxic respiratory failure and hypotension. Baseline creatinine in the low 1s. Creatinine down to 2.7 today. Patient had hyperkalemia with potassium of 5.3 which is now controlled after dialysis. Chest x-ray and CT chest showed cardiomegaly with pulmonary edema. Discussed need for dialysis. Risks and benefits were discussed. Patient has consented to dialysis. Patient had the temporary dialysis catheter placed on 09/16/2024. he had dialysis yesterday. Electrolytes are stable and no signs of volume overload today. Will hold off further dialysis and reassess dialysis need daily. (2) Acute respiratory failure with hypoxia and hypercapnia: Plan: Combination CHF and Pneumonia. Oxygen requirement is reducing which is good. will optimize volume status with dialysis as above Plan Time spent [address] Holman who agrees with holding off dialysis today Admission and Anticipated Discharge Date Admission Date: September 13, 2024 Supervising Physician Co-Signing Physician Notes Attending attestation: Case reviewed with the advanced practitioner. I have personally performed a history and physical examination on the patient. I have reviewed the advanced practitioner's documentation on the date of service referenced in note, and I agree with, and take responsibility for the plan of care. I spent a total of 20 minutes coordinating, documenting, and providing care for this patient excluding time spent in the performance of separately billed services or time spent by another provider. Jefferson Cueto DO Subjective seen for acute renal failure requiring dialysis. He feels better today denies any shortness of breath. He is saturating well on 1.5 L. No leg swelling. He had dialysis yesterday. He had 2.8 L UF. He is making more urine Review of Systems 2 Review of Systems: All other systems were reviewed and negative except as noted in HPI Physical Exam 2 Physical Exam: General exam: Appears comfortable, no acute distress. On oxygen nasal cannula HEENT: Pupils are equal and reactive to light Neck: No JVD, neck is supple trachea is midline Respiratory system: Clear breath sounds bilaterally. Gastrointestinal: Abdomen is soft, non distended, non tender, bowel sounds are present CVS: Regular rate and rhythm. No murmurs, rubs or gallops Musculoskeletal: No joint or muscle tenderness Extremities: Non tender, no edema, peripheral pulses are present Neuro: Oriented, no tremors, no focal neurological deficits Skin: No rashes Results & Data Vital Signs (Past 12 Hours) Vital Signs Temp Pulse Pulse Pulse Pulse Resp BP 09/18/24 11:07 57 L 18 09/18/24 10:57 36.5 C 48 L 19 127/66 09/18/24 08:00 74 09/18/24 08:00 09/18/24 07:15 36.4 C L 46 L 20 125/58 L 09/18/24 07:03 46 L 18 09/18/24 03:56 36.7 C 53 L 16 128/76 Pulse Ox O2 Del Method O2 Flow Rate 09/18/24 11:07 95 Nasal Cannula 1.5 09/18/24 10:57 96 Nasal Cannula 3 09/18/24 08:00 09/18/24 08:00 Nasal Cannula 3 09/18/24 07:15 93 Nasal Cannula 3 09/18/24 07:03 92 Nasal Cannula 3 09/18/24 03:56 95 Nasal Cannula 4 Laboratory Results 09/18/24 05:36 09/18/24 09/18/24 05:36 10:10 WBC 9.09 RBC 3.93 L MCV 93.6 MCH 32.3 MCHC 34.5 RDW Std Deviation 47.2 H RDW Coeff of Jasson 13.9 Plt Count 191 MPV 9.8 Phosphorus 5.2 H
--- NOTE | 2024-09-18 15:03 | Hospitalist Progress Note ---
Date of Service September 18, 2024 Assessment & Plan (1) Acute hypoxic respiratory failure: (2) Acute kidney injury (CHRIS) with acute tubular necrosis (ATN): (3) Acute heart failure with preserved ejection fraction: (4) Bradycardia: (5) Nonsustained ventricular tachycardia: (6) Acute aspiration pneumonitis: (7) Acute bronchitis: (8) Pulmonary hypertension: (9) Tracheobronchomalacia: (10) Hyperkalemia: (11) Suspected chronic obstructive pulmonary disease based on initial evaluation: (12) DM (diabetes mellitus), type 2: (13) Moderate aortic stenosis: (14) Smoking history: (15) LBBB (left bundle branch block): Plan Patient with acute ATN requiring hemodialysis and respiratory failure is steadily improving. Now with some nonsustained V. tach. Remains significantly ill requiring hospital level care and monitoring and specialty care. Continue to titrate oxygen to off as able Communication with nephrology, no plans for hemodialysis today, continue to monitor renal function Reviewed telemetry, patient continues with intermittent bradycardia and now some nonsustained V. tach. Cardiology recommendations noted, decreasing midodrine, avoiding beta- blockers/AV naomi blocking agents, anticipate may need pacemaker at some point in the future. Discussed with pulmonary team, no evidence of pneumonia, completing antibiotics today. Outpatient sleep study. Communication with speech, no plans for video swallow at this time. update via phone Admission and Anticipated Discharge Date Admission Date: September 13, 2024 Subjective Patient reports feeling fatigued but breathing seems a little bit better. Biggest complaint is the dialysis catheter in his neck. Physical Exam Physical Exam: Constitutional: Alert, nontoxic HEENT: Mucous membranes moist. Lungs: Decreased breath sounds but improving airflow, few crackles, no wheezes CV: S1-S2, regular Abdomen: Soft, nontender, nondistended Extremities: No significant edema Neuro: No focal deficits Psych: Cooperative, normal mood Results & Data Results & Data Vital Signs (Past 12 Hours) Vital Signs Temp Pulse Pulse Pulse Pulse Resp BP 09/18/24 14:41 09/18/24 14:00 09/18/24 11:30 09/18/24 11:07 57 L 18 09/18/24 10:57 36.5 C 48 L 19 127/66 09/18/24 10:55 09/18/24 08:00 74 09/18/24 08:00 09/18/24 07:15 36.4 C L 46 L 20 125/58 L 09/18/24 07:03 46 L 18 09/18/24 03:56 36.7 C 53 L 16 128/76 Pulse Ox Pulse Ox O2 Del Method O2 Del Method O2 Flow Rate O2 Flow Rate 09/18/24 14:41 86 L Room Air, Nasal Cannula 0 09/18/24 14:00 89 L Nasal Cannula 2 09/18/24 11:30 96 Room Air 2 09/18/24 11:07 95 Nasal Cannula 1.5 09/18/24 10:57 96 Nasal Cannula 3 09/18/24 10:55 97 Nasal Cannula 3 09/18/24 08:00 09/18/24 08:00 Nasal Cannula 3 09/18/24 07:15 93 Nasal Cannula 3 09/18/24 07:03 92 Nasal Cannula 3 09/18/24 03:56 95 Nasal Cannula 4 Diagnostic Findings Reviewed imaging, laboratory and diagnostic studies. Pertinent findings as below. WBCs 9.0 Hemoglobin 12.7 Creatinine 2.7 TSH 1.2 Lyme screen negative Telemetry brief run of V. tach. (7) Acute bronchitis Bronchitis organism: unspecified organism Qualified Code(s): J20.9 - Acute bronchitis, unspecified
[2024-09-19 06:28] LABS: BUN Creatinine Ratio 28.8 (10-20); Calcium 8.6 mg/dl (8.6-10.3); Phosphorus 4.1 mg/dl (2.5-4.9); Potassium 4.2 mmol/L (3.5-5.1)
--- NOTE | 2024-09-19 09:08 | Pulmonology Progress Note ---
Date of Service September 19, 2024 Assessment & Plan (1) Elevated hemidiaphragm: (2) Bronchitis: (3) Acute aspiration pneumonitis: Plan Impression: 78-year-old male with progressive shortness of breath which is likely multifactorial. He has significant valvular heart disease and morbid obesity. He is deconditioned. Chest x-ray and CT scan show an elevated/eventrated right hemidiaphragm which appears chronic in nature. He may have tracheobronchial malacia based on the quality of his cough but postnasal drip may be contributing as well. He underwent dialysis with ultrafiltration yesterday with improvement in his oxygen saturations. Recommendations: 1. Dyspnea: Multifactorial. Continues to show improvement with volume management. He was ambulating the halls yesterday and is anxious to do so as well today. He is down to 2 L nasal cannula and saturating 97%. This could likely be titrated down further with a goal saturation of 94%. Continue to encourage incentive spirometry and out of bed to chair as tolerated. Chronic RIGHT sided elevated hemidiaphragm as discussed before. 2. There is no evidence of pneumonia on his CT scan. Has been de-escalated to cefuroxime and doxycycline which seems reasonable to complete for 5 days but then antibiotics can be discontinued. 3. 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 Would recommend outpatient polysomnography to see if he qualifies for CPAP or BiPAP machine. 4. 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 Treatment with antihistamines, decongestants, saline sinus irrigation, topical nasal steroids would be recommended. 5. Aspiration event: Appears resolved 6. Hypoxemia: Continue to titrate down supplemental oxygen as tolerated. Goal saturation of 94%. Continue with spirometry, ambulation, and out of bed to chair is much as possible. Thank you for allowing us to participate in the care of this pleasant patient. Pulmonary medicine will sign off at this time. Please feel free to reach out to us with any further questions. Admission and Anticipated Discharge Date Admission Date: September 13, 2024 Subjective Patient seen and evaluated at bedside. He reports that his breathing has been feeling well. He was out of bed yesterday and did ambulate the velazquez with assistance. He is anxious to do it again today. He reports a significant output of urine. Otherwise, the patient is feeling well and without issue at his catheter site. Review of Systems Review of Systems: Please refer to admission H&P. No additions or deletions Physical Exam Physical Exam: VITAL SIGNS Vital signs and nursing notes were reviewed. GENERAL 78-year-old male appearing his stated age who is in no acute distress. Communicates well with provider and answers questions appropriately. SKIN RIGHT IJ HD Cath in place. Dressing with scant dried blood. NOSE Midline and without cyanosis. No epistaxis or purulent drainage noted. MOUTH/OROPHARYNX Without perioral cyanosis. NECK IJ site as above. Neck with FROM. LUNGS Chest wall evaluation demonstrates normal chest wall A:P diameter. Aus cultation reveals basilar rales. No wheezing. CARDIAC RRR with S1/S2. No murmur, rubs, or gallops appreciated. PSYCH A&Ox3 and cooperates fully with examiner. Pt is very pleasant and interacts well with examiner. Results & Data Results & Data Vital Signs (Past 12 Hours) Vital Signs Temp Pulse Pulse Resp BP Pulse Ox O2 Del Method 09/19/24 08:00 67 09/19/24 07:54 36.9 C 84 20 115/70 97 Nasal Cannula 09/19/24 02:25 36.5 C 44 L 16 125/70 94 Nasal Cannula 09/18/24 23:00 56 L 09/18/24 22:19 36.8 C 44 L 18 129/67 93 Nasal Cannula O2 Flow Rate 09/19/24 08:00 09/19/24 07:54 2 09/19/24 02:25 2 09/18/24 23:00 09/18/24 22:19 2 PG Care Time/CCT Total # of Minutes Spent Total Time Spent with Patient: Total time spent is greater than 50% in coordination of care (as documented) at patient's floor/unit and/or counseling patient: Coding Level of Care Code 29314 SUB INP/OBS CARE 2/35MIN Diagnoses Elevated hemidiaphragm J98.6 Bronchitis J40 Acute aspiration pneumonitis J69.0
--- NOTE | 2024-09-19 09:55 | Cardiology Progress Note ---
Date of Service September 19, 2024 Assessment & Plan (1) Bradycardia: (2) Nonsustained ventricular tachycardia: (3) LBBB (left bundle branch block): (4) Moderate aortic stenosis: (5) Acute hypoxic respiratory failure: (6) CAP (community acquired pneumonia): Plan 09/14/24: Patient admitted with acute respiratory failure with hypoxia - multifactorial secondary to acute HFpEF exacerbation, possible underlying CAP and COPD exacerbation. Symptoms improved with IV diuretics yesterday but unfortunately resulted in CHRIS and hyperkalemia. He current appears euvolemic this morning. Hold additional diuretics. Hold lisinopril/HCTZ. Would consider stopping lisinopril/HCTZ combination and starting lisinopril with loop diuretic once renal function improves. Moderate noted on echo, stable from prior echo in Apr 2024. Will monitor. Continue all other outpatient cardiac medications including ASA, amlodipine, plavix (for PVD), statin. Treatment for CAP/COPD per hospitalist. 09/15/24: Patient had recurrent aspiration event late yesterday with worsening hypoxia and requiring BIPAP. Treated with IV steroids and additional dose of IV lasix. Unfortunately creatinine climbed to 3.0 this morning. Hold lisinopril/hctz. Oxygen requirements improving this morning. He appears euvolemic on exam. Would hold off on additional diuretics today, unless respiratory status worsens. Continue all other outpatient cardiac meds including ASA, amlodipine, plavix (for PVD), and statin. 09/16/24: Ongoing hypoxia requiring high flow oxygen overnight. Pulm consulted and appreciate recommendations. Clinically patient does not examine as in CHF exacerbation. Diuresis has been attempted with worsening renal dysfunction. Now CHRIS with hyperkalemia noted. Nephrology consulted. May need dialysis. Hold lisinopril/hctz. Borderline hypotension noted. Amlodipine on hold. Agree with initiation of midodrine. continue ASA and plavix and statin. Echo with preserved LVEF, moderate . Patient with intermittent bradycardia, possible blocked PAC's, possibly due to hyperkalemia. No symptoms. He is not on beta teresa. Will monitor. 09/18/24: Complaints of feeling tired and "queasy in the stomach." Telemetry with bradycardia in the upper 40's, frequent blocked PAC's, and one short run of nonsustained ventricular tachycardia this morning at 8:04:49 On Midodrine for blood pressure, ? contributing to bradycardia. * Decrease midodrine to 2.5 mg three times per day. * Check TSH. Potassium and magnesium OK. * Continue to avoid AV naomi blockers for now (was on Propranolol as outpatient for tremor) * Likely requires permanent pacemaker implantation at some point though not ideal candidate at present. * Maintain telemetry 09/19/2024: Feels and looks better though with ongoing intermittent bradycardia down to 40 bpm, chronic left bundle branch block, moderate aortic valve stenosis. Right neck hemodialysis catheter remains in place. Continue to avoid AV naomi blockers for now (was on Propranolol as outpatient for tremor) Timing of permanent pacemaker implantation to be determined. Increase activity as tolerated. Admission and Anticipated Discharge Date Admission Date: September 13, 2024 Supervising Physician Co-Signing Physician Notes Attending attestation: Case reviewed with the advanced practitioner. I have personally performed a history and physical examination on the patient. I have reviewed the advanced practitioner's documentation on the date of service referenced in note, and I agree with, and take responsibility for the plan of care. Patient reassessed, at around 1500 today. The right internal jugular vein dialysis line has been removed before my assessment. Noted mild hematoma at the line site. Patient states he feels much more comfortable now that the line has been removed Without pressure in his neck. Telemetry this afternoon reveals sinus rhythm with chronic left bundle branch block in the 70s to 80s at rest. The frequent PACs (blocked PACs) in a pattern of atrial bigeminy have resolved. -Patient with known moderate aortic stenosis relatively unchanged on echocardiogram this admission but did have findings suggestive of volume overload with dilatation of the inferior vena cava suggestive of elevated central venous pressure and elevated right atrial pressure, the pulmonary systo lic pressure is also elevated at 50 mmHg. -Per review of telemetry, bradycardia first observed in the morning early hours of 09/15 with heart rates in the 40s at approximately 1 AM. EKG performed 2024 at 6:38 AM revealed sinus bradycardia 46 bpm with left bundle branch block. Potassium level drawn at around the time of that EKG was mildly elevated at 5.3 mmol/L, having trended down from 5.6 mmol/L. Question of bradycardia may have been multifactorial related to hyperkalemia, then high vagal tone when the internal jugular dialysis line was placed/replaced, with catheter perhaps causing irritation to the endocardium of the right atrium with resultant atrial ectopy and ventricular ectopy. At present I recommend ongoing observation on oral diuretic and telemetry. Avoid AV naomi blockers. I spent a total of 20 minutes coordinating, documenting, and providing care for this patient excluding time spent in the performance of separately billed services or time spent by another provider. Jefferson Cueot, Subjective Patient seen and examined. Chart, medications, and telemetry reviewed. Feeling much better today. Looking forward to taking a walk in the hallway. No chest chest pain, palpitations, shortness of breath, orthopnea, PND, dizziness, near syncope, fevers, or chills Telemetry: Sinus in the 70's currently. Bradycardic to 40 bpm overnight. No further NS-VT September 13, 2024 TTE: EF 55-60%. Mild concentric LVH. Trileaflet aortic valve with moderate calcific aortic stenosis, mild mitral and tricuspid regurgitation. Estimated systolic pulmonary pressure 58 mmHg. Physical Exam Physical Exam: General: NAD. HENT: Normocephalic. Atraumatic. Eyes: PER. Conjunctiva pink, sclera clear. Neck: Right sided catheter. Heart: Bradycardic at 54 bpm. Grade II/ systolic murmur. Lungs: Clear to auscultation. Abdomen: +BS. Soft. Nontender. No masses or organomegaly. Extremities: No clubbing, cyanosis, or edema. Limited neurological examination is without focal deficits. Pulses: Posterior tibial=1/4. Results & Data Vital Signs (Past 12 Hours) Vital Signs Temp Pulse Pulse Resp BP Pulse Ox O2 Del Method 09/19/24 08:00 67 09/19/24 07:54 36.9 C 84 20 115/70 97 Nasal Cannula 09/19/24 02: 36.5 C 44 L 16 125/70 94 Nasal Cannula 09/18/24 23:00 56 L 09/18/24 22:19 36.8 C 44 L 18 129/67 93 Nasal Cannula O2 Flow Rate 09/19/24 08:00 09/19/24 07:54 2 09/19/24 02:25 2 09/18/24 23:00 09/18/24 22:19 2 Laboratory Results CBC 09/18/24 Range/Units 10:10 WBC 9.09 (4.8-10.8) K/ul RBC 3.93 L (4.70-6.10) M/uL Hgb 12.7 L (14.0-18.0) g/dl Hct 36.8 L (42.0-52.0) % Plt Count 191 (130-400) K/uL Comprehensive Metabolic Panel 09/19/24 Range/Units 05:40 Sodium 137 (136-145) mmol/L Potassium 4.2 (3.5-5.1) mmol/L Chloride 101 (98-107) mmol/L Carbon Dioxide 29 (21-32) mmol/L BUN 62 H (6-23) mg/dl Creatinine 2.15 H D (0.6-1.4) mg/dl Glucose 98 (70-99(Fasting)) mg/dl Calcium 8.6 (8.6-10.3) mg/dl Intake and Output 09/18/24 09/19/24 09/19/24 22:59 06:59 14:59 Intake Total 150 / 690 Output Total 376 / 777 226 / 777 Balance - - Intake: Oral 150 / 690 Output: Urine 375 / 775 225 / 775 # Bowel Movements 1 / 2 1 / 2 Other: # Unmeasured Voids 1 1 Weight 87.4 kg Weight Measurement Method Built in [facility] (6) CAP (community acquired pneumonia) Laterality: unspecified laterality Qualified Code(s): J18.9 - Pneumonia, unspecified organism
--- NOTE | 2024-09-19 12:07 | Hospitalist Progress Note ---
Date of Service September 19, 2024 Assessment & Plan (1) Acute hypoxic respiratory failure: (2) Acute kidney injury (CHRIS) with acute tubular necrosis (ATN): (3) Acute heart failure with preserved ejection fraction: (4) Bradycardia: (5) Nonsustained ventricular tachycardia: (6) Acute aspiration pneumonitis: (7) Acute bronchitis: (8) Pulmonary hypertension: (9) Tracheobronchomalacia: (10) Hyperkalemia: (11) Suspected chronic obstructive pulmonary disease based on initial evaluation: (12) DM (diabetes mellitus), type 2: (13) Moderate aortic stenosis: (14) Smoking history: (15) LBBB (left bundle branch block): Plan Patient with acute hypoxic respiratory failure possibly due to heart failure preserved ejection fraction as well as acute ATN requiring temporary hemodialysis. Renal function has continued to improve while holding hemodialysis, communication with nephrology, can remove hemodialysis catheter Patient completed course of antibiotics for possible aspiration pneumonia. Patient with continued bradycardia intermittently. Communication with cardiology. Suggesting that pacemaker will be required to question the exact timing. Would like hemodialysis catheter removed and continuing to see renal function improve and then coordinating pacemaker with EP team possibly later this week. Continue to avoid any AV naomi blocking agents. Anticipate at some point may need intervention on valve in the future as well. Blood pressure has significantly improved, discontinue midodrine Patient's hypoxia significantly improved, on and off 2 L of oxygen, continue to titrate as able. Anticipate will need 2- step oximetry prior to discharge. Continue to monitor laboratory studies When patient's overall medical status continue improves further can consider initiating treatment for tracheomalacia as suggested by pulmonary, decongestants, nasal saline, etc. Updated patient's via phone Admission and Anticipated Discharge Date Admission Date: September 13, 2024 Subjective No acute issues overnight, however, heart rate did dip down to 38.. No chest pain or shortness of breath. Physical Exam Physical Exam: Constitutional: Alert, nontoxic, no acute distress HEENT: Mucous membranes moist. Temporary hemodialysis catheter right neck Lungs: Decreased breath sounds, significantly improved airflow, no wheezes CV: S1-S2, regular, bradycardic Abdomen: Soft, nontender, nondistended Extremities: No significant edema Neuro: No focal deficits Psych: Cooperative, normal mood Results & Data Results & Data Vital Signs (Past 12 Hours) Vital Signs Temp Pulse Pulse Resp BP Pulse Ox O2 Del Method 03/11/25 11:04 36.6 C 44 L 15 134/61 96 Nasal Cannula 09/19/24 09:00 Nasal Cannula 09/19/24 08:00 67 09/19/24 07:54 36.9 C 84 20 115/70 97 Nasal Cannula 09/19/24 02:25 36.5 C 44 L 16 125/70 94 Nasal Cannula O2 Flow Rate 09/19/24 11:04 2 09/19/24 09:00 2 09/19/24 08:00 09/19/24 07:54 2 09/19/24 02:25 2 Diagnostic Findings Reviewed imaging, laboratory and diagnostic studies. Pertinent findings as below. Electrolytes stable Creatinine 2.15, improved (7) Acute bronchitis Bronchitis organism: unspecified organism Qualified Code(s): J20.9 - Acute bronchitis, unspecified
--- NOTE | 2024-09-19 12:11 | Nephrology Progress Note ---
Date of Service September 19, 2024 Assessment & Plan (1) CHRIS (acute kidney injury): Plan: etiology is ischemic ATN in setting of hypoxic respiratory failure and hypotension. Baseline creatinine in the low 1s. Creatinine down to 2.15 today. Patient had hyperkalemia with potassium of 5.3 which is now controlled after dialysis. Chest x-ray and CT chest showed cardiomegaly with pulmonary edema. Patient had the temporary dialysis catheter placed on 09/16/2024. his last dialysis was on 09/17/2024. Electrolytes are stable and no signs of volume overload today. patient does not need anymore dialysis. Please remove temporary dialysis catheter (2) Acute respiratory failure with hypoxia and hypercapnia: Plan: Combination CHF and Pneumonia. Oxygen requirement is reducing which is good. patient appears euvolemic. Okay to use diuretics if needed Plan Time spent [address] Holman who agrees with removal of temporary dialysis catheter Admission and Anticipated Discharge Date Admission Date: September 13, 2024 Subjective patient has improved. No shortness of breath or leg swelling. He continues to have bradycardia. Oxygen is down to 2 L nasal cannula. He is making urine and creatinine downtrending to 2.1 Review of Systems 2 Review of Systems: All other systems were reviewed and negative except as noted in HPI Physical Exam 2 Physical Exam: General exam: Appears comfortable, no acute distress. On oxygen nasal cannula HEENT: Pupils are equal and reactive to light Neck: No JVD, neck is supple trachea is midline Respiratory system: Clear breath sounds bilaterally. Gastrointestinal: Abdomen is soft, non distended, non tender, bowel sounds are present CVS: Regular rate and rhythm. No murmurs, rubs or gallops Musculoskeletal: No joint or muscle tenderness Extremities: Non tender, no edema, peripheral pulses are present Neuro: Oriented, no tremors, no focal neurological deficits Skin: No rashes Results & Data Vital Signs (Past 12 Hours) Vital Signs Temp Pulse Pulse Resp BP Pulse Ox O2 Del Method 09/19/24 11:04 36.6 C 44 L 15 134/61 96 Nasal Cannula 09/19/24 09:00 Nasal Cannula 09/19/24 08:00 67 09/19/24 07:54 36.9 C 84 20 115/70 97 Nasal Cannula 09/19/24 02:25 36.5 C 44 L 16 125/70 94 Nasal Cannula O2 Flow Rate 09/19/24 11:04 2 09/19/24 09:00 2 09/19/24 08:00 09/19/24 07:54 2 09/19/24 02:25 2 Laboratory Results 09/19/24 05:40 09/19/24 05:40 Phosphorus 4.1 D
[2024-09-20 06:29] LABS: Hematocrit (blood only) 38.6 % (42.0-52.0); Hemoglobin 12.6 g/dl (14.0-18.0); Mean Corpuscular Hgb Conc 32.6 g/dL (32.0-36.0); Mean Corpuscular Volume 95.1 fL (80.0-100.0); Mean Platelet Volume 9.7 fL (9.4-12.4); Platelet Count 174 K/uL (130-400); RDW Coefficient of Variation 13.4 % (11.5-14.5); RDW Standard Deviation 47.2 fL (36.4-46.3); Red Blood Count 4.06 M/uL (4.70-6.10); White Blood Count 8.99 K/ul (4.8-10.8)
[2024-09-20 06:40] LABS: BUN Creatinine Ratio 32.9 (10-20); Calcium 8.7 mg/dl (8.6-10.3); Creatinine Clr Calc Pharmacy 41.3 ml/min; Magnesium 1.9 mg/dl (1.7-2.4); Phosphorus 3.9 mg/dl (2.5-4.9); Potassium 4.4 mmol/L (3.5-5.1)
--- NOTE | 2024-09-20 10:07 | Cardiology Progress Note ---
Date of Service September 20, 2024 Assessment & Plan (1) Bradycardia: (2) Nonsustained ventricular tachycardia: (3) LBBB (left bundle branch block): (4) Moderate aortic stenosis: (5) Acute hypoxic respiratory failure: (6) CAP (community acquired pneumonia): Plan 09/14/24: Patient admitted with acute respiratory failure with hypoxia - multifactorial secondary to acute HFpEF exacerbation, possible underlying CAP and COPD exacerbation. Symptoms improved with IV diuretics yesterday but unfortunately resulted in CHRIS and hyperkalemia. He current appears euvolemic this morning. Hold additional diuretics. Hold lisinopril/HCTZ. Would consider stopping lisinopril/HCTZ combination and starting lisinopril with loop diuretic once renal function improves. Moderate noted on echo, stable from prior echo in Apr 2024. Will monitor. Continue all other outpatient cardiac medications including ASA, amlodipine, plavix (for PVD), statin. Treatment for CAP/COPD per hospitalist. 09/15/24: Patient had recurrent aspiration event late yesterday with worsening hypoxia and requiring BIPAP. Treated with IV steroids and additional dose of IV lasix. Unfortunately creatinine climbed to 3.0 this morning. Hold lisinopril/hctz. Oxygen requirements improving this morning. He appears euvolemic on exam. Would hold off on additional diuretics today, unless respiratory status worsens. Continue all other outpatient cardiac meds including ASA, amlodipine, plavix (for PVD), and statin. 09/16/24: Ongoing hypoxia requiring high flow oxygen overnight. Pulm consulted and appreciate recommendations. Clinically patient does not examine as in CHF exacerbation. Diuresis has been attempted with worsening renal dysfunction. Now CHRIS with hyperkalemia noted. Nephrology consulted. May need dialysis. Hold lisinopril/hctz. Borderline hypotension noted. Amlodipine on hold. Agree with initiation of midodrine. continue ASA and plavix and statin. Echo with preserved LVEF, moderate . Patient with intermittent bradycardia, possible blocked PAC's, possibly due to hyperkalemia. No symptoms. He is not on beta teresa. Will monitor. 09/18/24: Complaints of feeling tired and "queasy in the stomach." Telemetry with bradycardia in the upper 40's, frequent blocked PAC's, and one short run of nonsustained ventricular tachycardia this morning at 8:04:49 On Midodrine for blood pressure, ? contributing to bradycardia. * Decrease midodrine to 2.5 mg three times per day. * Check TSH. Potassium and magnesium OK. * Continue to avoid AV naomi blockers for now (was on Propranolol as outpatient for tremor) * Likely requires permanent pacemaker implantation at some point though not i deal candidate at present. * Maintain telemetry 09/19/2024: Feels and looks better though with ongoing intermittent bradycardia down to 40 bpm, chronic left bundle branch block, moderate aortic valve stenosis. Right neck hemodialysis catheter remains in place. Continue to avoid AV naomi blockers for now (was on Propranolol as outpatient for tremor) Timing of permanent pacemaker implantation to be determined. Increase activity as tolerated. 09/20/2024: Admission with acute hypoxic respiratory failure, acute ATN requiring temporary hemodialysis (catheter removed 09/19/2024), possible aspiration pneumonia. Normovolemic. No further bradycardia, likely multifactorial (hyperkalemia, high vagal tone, internal jugular dialysis catheter) Avoid AV naomi blockers Outpatient 14-day Zio monitor Increase activity as tolerated. Outpatient cardiology follow-up. Admission and Anticipated Discharge Date Admission Date: September 13, 2024 Supervising Physician Co-Signing Physician Notes Attending attestation: Case reviewed with the advanced practitioner. I have personally performed a history and physical examination on the patient. I have reviewed the advanced practitioner's documentation on the date of service referenced in note, and I agree with, and take responsibility for the plan of care. No significant bradycardia overnight. No acute indications for pacemaker insertion with increased risk procedure setting of recent infection. Will require close clinical follow-up as planned above. Outpatient event monitor with electrophysiology follow-up I spent a total of 20 minutes coordinating, documenting, and providing care for this patient excluding time spent in the performance of separately billed services or time spent by another provider. Subjective Patient seen and examined. Chart, medications, and telemetry reviewed. Complaints: Stuff runny nose, mild epistaxis, watery eyes No chest pain, chest congestion, palpitations, shortness of breath, orthopnea, PND, dizziness, near syncope, fevers, or chills Telemetry: Sinus in the 70's and 80's with occasional PAC's. No significant bradycardia overnight. Reported tachycardia shortly after 7:30 AM this morning appears artifactual. September 13, 2024 TTE: EF 55-60%. Mild concentric LVH. Trileaflet aortic valve with moderate calcific aortic stenosis, mild mitral and tricuspid regurgitation. Estimated systolic pulmonary pressure 58 mmHg. Physical Exam Physical Exam: General: NAD. HENT: Normocephalic. Atraumatic. Eyes: PER. Conjunctiva pink, sclera clear. Neck: Right sided catheter. Heart: Bradycardic at 76 bpm. Grade II/ systolic murmur. Lungs: Clear to auscultation. Abdomen: +BS. Soft. Nontender. No masses or organomegaly. Extremities: No clubbing, cyanosis, or edema. Limited neurological examination is without focal deficits. Pulses: Posterior tibial=1/4. Results & Data Vital Signs (Past 12 Hours) Vital Signs Temp Pulse Pulse Resp BP Pulse Ox O2 Del Method 09/20/24 08:13 36.6 C 78 18 135/71 90 Nasal Cannula 09/20/24 08:00 70 09/20/24 03:53 36.5 C 71 16 137/81 92 Nasal Cannula 09/20/24 00:03 36.6 C 72 18 115/52 L 90 Nasal Cannula 09/20/24 00:01 75 O2 Flow Rate 09/20/24 08:13 1.5 09/20/24 08:00 09/20/24 03:53 1 09/20/24 00:03 1 09/20/24 00:01 Laboratory Results CBC 09/20/24 Range/Units 05:31 WBC 8.99 (4.8-10.8) K/ul RBC 4.06 L (4.70-6.10) M/uL Hgb 12.6 L (14.0-18.0) g/dl Hct 38.6 L (42.0-52.0) % Plt Count 174 (130-400) K/uL Comprehensive Metabolic Panel 09/20/24 Range/Units 05:31 Sodium 136 (136-145) mmol/L Potassium 4.4 (3.5-5.1) mmol/L Chloride 102 (98-107) mmol/L Carbon Dioxide 29 (21-32) mmol/L BUN 53 H (6-23) mg/dl Creatinine 1.61 H D (0.6-1.4) mg/dl Glucose 89 (70-99(Fasting)) mg/dl Calcium 8.7 (8.6-10.3) mg/dl Intake and Output 09/19/24 09/20/24 09/20/24 22:59 06:59 14:59 Intake Total 150 / 630 Output Total 850 / 1350 Balance -700 / -720 Intake: Oral 150 / 630 Output: Urine 850 / 1350 Other: # Unmeasured Voids 150 2 Weight 86.9 kg Weight Measurement Method Built in [facility] (6) CAP (community acquired pneumonia) Laterality: unspecified laterality Qualified Code(s): J18.9 - Pneumonia, unspecified organism
--- NOTE | 2024-09-20 15:32 | Nephrology Progress Note ---
Date of Service September 20, 2024 Assessment & Plan (1) CHRIS (acute kidney injury): Plan: etiology is ischemic ATN in setting of hypoxic respiratory failure and hypotension. Baseline creatinine in the low 1s. Creatinine down to 2.15 today. Patient had hyperkalemia with potassium of 5.3 which is now controlled after dialysis. Chest x-ray and CT chest showed cardiomegaly with pulmonary edema. Patient had the temporary dialysis catheter placed on 09/16/2024 and removed on 09/19/24. his last dialysis was on 09/17/2024. Electrolytes are stable and no signs of volume overload today. patient does not need anymore dialysis. Will continue monitor renal function with daily BMP and input output. (2) Acute respiratory failure with hypoxia and hypercapnia: Plan: Combination CHF and Pneumonia. Oxygen requirement is reducing which is good. patient appears euvolemic. Okay to use diuretics if needed Plan Time spent 45 mins. Admission and Anticipated Discharge Date Admission Date: September 13, 2024 Subjective seen for acute kidney injury requiring dialysis. Patient appears to be recovering renal function. He is making more urine about 1 L yesterday. No shortness of breath. He is on oxygen 1 L in the cannula. Continues to have intermittent bradycardia. Review of Systems 2 Review of Systems: All other systems were reviewed and negative except as noted in HPI Physical Exam 2 Physical Exam: General exam: Appears comfortable, no acute distress. On oxygen nasal cannula HEENT: Pupils are equal and reactive to light Neck: No JVD, neck is supple trachea is midline Respiratory system: Clear breath sounds bilaterally. Gastrointestinal: Abdomen is soft, non distended, non tender, bowel sounds are present CVS: Regular rate and rhythm. No murmurs, rubs or gallops Musculoskeletal: No joint or muscle tenderness Extremities: Non tender, no edema, peripheral pulses are present Neuro: Oriented, no tremors, no focal neurological deficits Skin: No rashes Results & Data Vital Signs (Past 12 Hours) Vital Signs Temp Pulse Pulse Pulse Resp BP Pulse Ox 09/20/24 15:15 36.6 C 76 20 129/67 94 09/20/24 14:55 77 09/20/24 11:33 36.4 C L 99 H 19 131/65 93 09/20/24 09:00 09/20/24 08:13 36.6 C 78 18 135/71 90 09/20/24 08:00 70 09/20/24 03:53 36.5 C 71 16 137/81 92 O2 Del Method O2 Flow Rate 09/20/24 15:15 Nasal Cannula 1 09/20/24 14:55 09/20/24 11:33 Nasal Cannula 1 09/20/24 09:00 Nasal Cannula 1 09/20/24 08:13 Nasal Cannula 1.5 09/20/24 08:00 09/20/24 03:53 Nasal Cannula 1 Laboratory Results 09/20/24 05:31 09/20/24 05:31 WBC 8.99 RBC 4.06 L MCV 95.1 MCH 31.0 MCHC 32.6 RDW Std Deviation 47.2 H RDW Coeff of Jasson 13.4 Plt Count 174 MPV 9.7 Phosphorus 3.9
[2024-09-20] MEDS: ENOXAPARIN INJ 40 MG/0.4 ML SYR SQ SCH (16:11)
--- NOTE | 2024-09-20 16:11 | Hospitalist Progress Note ---
Date of Service September 20, 2024 Assessment & Plan (1) Acute hypoxic respiratory failure: (2) Acute kidney injury (CHRIS) with acute tubular necrosis (ATN): (3) Acute heart failure with preserved ejection fraction: (4) Bradycardia: (5) Nonsustained ventricular tachycardia: (6) Acute aspiration pneumonitis: (7) Acute bronchitis: (8) Pulmonary hypertension: (9) Tracheobronchomalacia: (10) Hyperkalemia: (11) Suspected chronic obstructive pulmonary disease based on initial evaluation: (12) DM (diabetes mellitus), type 2: (13) Moderate aortic stenosis: (14) Smoking history: (15) LBBB (left bundle branch block): Plan Patient with acute hypoxic respiratory failure possibly due to heart failure preserved ejection fraction as well as acute ATN requiring temporary hemodialysis. Renal function has continued to improve while holding hemodialysis - hemodialysis catheter now removed Patient completed course of antibiotics for possible aspiration pneumonia. Patient with bradycardia intermittently. Cardiology following - considered pacemaker but now bradycardia seems to be resolved perhaps after hemodialysis catheter was removed. Will need zio patch as outpt, cardiology follow up. Continue to avoid any AV naomi blocking agents. Anticipate at some point may need intervention on valve in the future as well. Blood pressure has significantly improved, discontinued midodrine Patient's hypoxia significantly improved, on 1 L of oxygen, continue to titrate as able. Anticipate will need 2- step oximetry prior to discharge. Continue to monitor laboratory studies When patient's overall medical status continue improves further can consider initiating treatment for tracheomalacia as suggested by pulmonary, decongestants, nasal saline, etc. Sleep study as outpt. Admission and Anticipated Discharge Date Admission Date: September 13, 2024 Subjective Pt seen in follow up of acute hypoxic resp. failure, CHRIS no longer bradycardic Cr improving , 1.6 today Down to 1L of suppl. O2 Currently lying in bed in NAD denies fever, chills, chest pain, shortness of breath Review of Systems Review of Systems: All systems reviewed & are unremarkable except as noted in Subjective Physical Exam Physical Exam: Constitutional: WD/WN M in NAD HEENT: NC/AT. Mucous membranes moist. hemodialysis catheter removed Lungs: Decreased breath sounds, CTAB, no wheezes CV: S1-S2, regular Abdomen: Soft, nontender, nondistended Extremities: No significant edema, moves extremities Neuro: awake, alert, speech fluent, answers appropriately, moves extremities, No focal deficits Psych: Cooperative, normal mood Results & Data Results & Data Vital Signs (Past 12 Hours) Vital Signs Temp Pulse Pulse Pulse Resp BP Pulse Ox 09/20/24 15:15 36.6 C 76 20 129/67 94 09/20/24 14:55 77 09/20/24 11:33 36.4 C L 99 H 19 131/65 93 09/20/24 09:00 09/20/24 08:13 36.6 C 78 18 135/71 90 09/20/24 08:00 70 O2 Del Method O2 Flow Rate 09/20/24 15:15 Nasal Cannula 1 09/20/24 14:55 09/20/24 11:33 Nasal Cannula 1 09/20/24 09:00 Nasal Cannula 1 09/20/24 08:13 Nasal Cannula 1.5 09/20/24 08:00 Laboratory Results 09/20/24 Range/Units 05:31 WBC 8.99 (4.8-10.8) K/ul RBC 4.06 L (4.70-6.10) M/uL Hgb 12.6 L (14.0-18.0) g/dl Hct 38.6 L (42.0-52.0) % MCV 95.1 (80.0-100.0) fL MCH 31.0 (25.0-34.0) pg MCHC 32.6 (32.0-36.0) g/dL RDW Std Deviation 47.2 H (36.4-46.3) fL RDW Coeff of Jasson 13.4 (11.5-14.5) % Plt Count 174 (130-400) K/uL MPV 9.7 (9.4-12.4) fL Sodium 136 (136-145) mmol/L Potassium 4.4 (3.5-5.1) mmol/L Chloride 102 (98-107) mmol/L Carbon Dioxide 29 (21-32) mmol/L Anion Gap 5 (3-11) BUN 53 H (6-23) mg/dl Creatinine 1.61 H D (0.6-1.4) mg/dl Est Cr Clr Drug Dosing 41.3 ml/min eGFR 43.50 BUN/Creatinine Ratio 32.9 H (10-20) Glucose 89 (70-99(Fasting)) mg/dl Calcium 8.7 (8.6-10.3) mg/dl Phosphorus 3.9 (2.5-4.9) mg/dl Magnesium 1.9 (1.7-2.4) mg/dl Medications Administered Current Inpatient Medications Acetaminophen (Acetaminophen 325 Mg Tab) 650 mg PO Q4H PRN PRN Reason: Pain or Fever Stop: 10/13/24 14:32 Last Admin: 09/14/24 15:41 Dose: 650 mg Allopurinol (Allopurinol 300 Mg Tab) 300 mg PO DAILY BRI Stop: 10/14/24 08:59 Last Admin: 09/20/24 08:53 Dose: 300 mg Aspirin (Aspirin 81 Mg Ectab) 81 mg PO DAILY BRI Stop: 10/14/24 08:59 Last Admin: 09/20/24 08:54 Dose: 81 mg Clopidogrel Bisulfate (Clopidogrel Bisulfate 75 Mg Tab) 75 mg PO HS BRI Stop: 10/13/24 20:59 Last Admin: 09/19/24 20:53 Dose: 75 mg Dextrose (Dextrose 50% 50 Ml Syringe) 25 - 50 ml IV UD PRN; Protocol PRN Reason: Hypoglycemia Protocol Stop: 10/13/24 16:40 Enoxaparin Sodium (Enoxaparin Inj 40 Mg/0.4 Ml Syr) 40 mg SQ Q24H BRI Stop: 10/20/24 15:59 Famotidine (Famotidine 20 Mg Tab) 20 mg PO DAILY BRI Stop: 10/17/24 08:59 Last Admin: 09/20/24 08:56 Dose: 20 mg Glucagon (Glucagon For Inj 1 Mg Vial) 1 mg SQ UD PRN; Protocol PRN Reason: Hypoglycemia Protocol Stop: 10/13/24 16:40 Glucose (Glucose 40% Gel 15 Gm Tube) 15 - 30 gm PO UD PRN; Protocol PRN Reason: Hypoglycemia Protocol Stop: 10/13/24 16:40 Glucose (Glucose 10 Tab/Tube) 4 - 8 tab PO UD PRN; Protocol PRN Reason: Hypoglycemia Protocol Stop: 10/13/24 16:40 Guaifenesin (Guaifenesin 600 Mg Tabcr) 1,200 mg PO Q12 BRI Stop: 10/14/24 20:59 Last Admin: 09/20/24 08:55 Dose: 1,200 mg Levalbuterol HCl (Levalbuterol 1.25 Mg/3 Ml Neb) 1.25 mg NEB Q4H PRN PRN Reason: Shortness Of Breath Or Wheezing Stop: 10/14/24 09:29 Miscellaneous (Carbohydrates For Hypoglycemia ) 15 - 30 gm PO UD PRN PRN Reason: Hypoglycemia Protocol Stop: 10/13/24 16:40 Ondansetron HCl (Ondansetron Inj 2 Mg/Ml 2 Ml Vial) 4 mg IV Q6H PRN PRN Reason: Nausea Stop: 10/13/24 14:32 Polyethylene Glycol (Polyethylene (Miralax) 17 Gm Pack) 17 gm PO DAILY PRN PRN Reason: Constipation Stop: 10/13/24 14:32 Rosuvastatin Calcium (Rosuvastatin Calcium 20 Mg Tab) 40 mg PO HS COUNTS INCLUDE 234 BEDS AT THE [facility] Stop: 10/13/24 21:29 Last Admin: 09/19/24 20:54 Dose: 40 mg (7) Acute bronchitis Bronchitis organism: unspecified organism Qualified Code(s): J20.9 - Acute bronchitis, unspecified
[2024-09-20] MEDS ORDERED: SODIUM CHLORIDE 0.65% NA SOLN 45 ML (OCEAN) PRN (16:55)
[2024-09-21 06:39] LABS: Hematocrit (blood only) 38.9 % (42.0-52.0); Hemoglobin 12.7 g/dl (14.0-18.0); Mean Corpuscular Hemoglobin 30.8 pg (25.0-34.0); Mean Corpuscular Hgb Conc 32.6 g/dL (32.0-36.0); Mean Corpuscular Volume 94.2 fL (80.0-100.0); Mean Platelet Volume 9.7 fL (9.4-12.4); Platelet Count 177 K/uL (130-400); RDW Coefficient of Variation 13.6 % (11.5-14.5); RDW Standard Deviation 47.1 fL (36.4-46.3); Red Blood Count 4.13 M/uL (4.70-6.10); White Blood Count 8.55 K/ul (4.8-10.8)
[2024-09-21 06:47] LABS: BUN Creatinine Ratio 34.1 (10-20); Calcium 8.7 mg/dl (8.6-10.3); Creatinine Clr Calc Pharmacy 48.3 ml/min; Magnesium 1.8 mg/dl (1.7-2.4); Phosphorus 3.4 mg/dl (2.5-4.9); Potassium 4.3 mmol/L (3.5-5.1)
[2024-09-21 11:19] VITALS: BP 147/81; TEMP 97.5
--- NOTE | 2024-09-21 12:14 | Nephrology Progress Note ---
Date of Service September 21, 2024 Assessment & Plan (1) CHRIS (acute kidney injury): Plan: etiology is ischemic ATN in setting of hypoxic respiratory failure and hypotension. Baseline creatinine in the low 1s. Creatinine down to 2.15 today. Patient had hyperkalemia with potassium of 5.3 which is now controlled after dialysis. Chest x-ray and CT chest showed cardiomegaly with pulmonary edema. Patient had the temporary dialysis catheter placed on 09/16/2024 and removed on 09/19/24. his last dialysis was on 09/17/2024. Electrolytes are stable and no signs of volume overload today. patient does not need anymore dialysis. From renal standpoint he can be discharged. He will need a BMP mid next week. Primary care can refer to Nephrology for creatinine is still abnormal. discussed with Dr. Steel who agrees with possible discharge (2) Acute respiratory failure with hypoxia and hypercapnia: Plan: Combination CHF and Pneumonia. Oxygen requirement is reducing which is good. patient appears euvolemic. Okay to use diuretics if needed Plan Time spent 45 mins. Admission and Anticipated Discharge Date Admission Date: September 13, 2024 Subjective seen for acute renal failure. He feels better today. No shortness of breath or leg swelling. He is making more urine. Creatinine downtrending to 1.4. Review of Systems 2 Review of Systems: All other systems were reviewed and negative except as noted in HPI Physical Exam 2 Physical Exam: General exam: Appears comfortable, no acute distress. On oxygen nasal cannula HEENT: Pupils are equal and reactive to light Neck: No JVD, neck is supple trachea is midline Respiratory system: Clear breath sounds bilaterally. Gastrointestinal: Abdomen is soft, non distended, non tender, bowel sounds are present CVS: Regular rate and rhythm. No murmurs, rubs or gallops Musculoskeletal: No joint or muscle tenderness Extremities: Non tender, no edema, peripheral pulses are present Neuro: Oriented, no tremors, no focal neurological deficits Skin: No rashes Results & Data Vital Signs (Past 12 Hours) Vital Signs Temp Pulse Pulse Pulse Pulse Resp Resp 09/21/24 11:20 85 83 80 20 09/21/24 11:18 36.4 C L 71 19 09/21/24 10:31 09/21/24 08:06 36.7 C 80 16 09/21/24 04:06 36.6 C 75 18 Resp Resp BP Pulse Ox Pulse Ox Pulse Ox Pulse Ox 09/21/24 11:20 18 16 93 94 93 09/21/24 11:18 147/81 H 91 09/21/24 10:31 93 09/21/24 08:06 125/72 96 09/21/24 04:06 125/85 92 O2 Del Method 09/21/24 11:20 09/21/24 11:18 Room Air 09/21/24 10:31 09/21/24 08:06 Room Air 09/21/24 04:06 Room Air Laboratory Results 09/21/24 06:01 09/21/24 06:01 WBC 8.55 RBC 4.13 L MCV 94.2 MCH 30.8 MCHC 32.6 RDW Std Deviation 47.1 H RDW Coeff of Jasson 13.6 Plt Count 177 MPV 9.7 Phosphorus 3.4
--- NOTE | 2024-09-21 12:26 | Discharge Summary ---
Date of Service September 21, 2024 Admission HPI Per Admitting Provider This is a 78-year-old male with PMH of PVD with claudication, chronic left bundle branch block, diet-controlled DM II, hypertension, moderate aortic stenosis, CKD 3, essential tremor and other medical problems listed below who presents with increased shortness of breath over the past few weeks and found to have acute hypoxic respiratory failure. Patient had noticed progressively worsening dyspnea on exertion over the past few months. Has still been able to go on his walks at the [employer] but has to sit on a bench every 250 feet. Over the past few nights, patient has been waking up during the night short of breath. Resolves when he sits up. States he is always had chronic lower extremity swelling after revascularization procedures for vascular disease but has noted increased swelling over the past week. is also noted patient has a wet sounding cough but unable to expectorate. Does have a 15-etaq-btga history but has not smoked in over 20 years. Denies a formal diagnosis of COPD. Does not require oxygen at baseline. Does follow with [facility] cardiology for moderate aortic stenosis and peripheral vascular disease. Last underwent echo in April 2024 with preserved EF of 55-59%, mildly abnormal left ventricular diastolic dysfunction, moderate aortic valve stenosis, mild pulmonary hypertension. Is compliant with medications. No recent F/C but has been more congested. No CP, palpitations, wheezing, N/V, abd pain, dysuria, diarrhea or constipation. Admission Exam Per Admitting Provider General Appearance: WD/WN, vitals as above, NAD, sitting up at side of bed, some conversational dyspnea Head: normocephalic, atraumatic Eyes: normal inspection, PERRL, conjunctivae normal, anicteric sclerae ENT: external ear and nose normal, oropharynx normal Neck: normal visual inspection, trachea midline, no thyromegaly Respiratory: increased respiratory effort, bibasilar rales, no wheezing. No accessory muscle use Cardiovascular: regular rate, rhythm,+systolic murmur, normal peripheral pulses, 2-3+ BLE edema R>L. Vessels: + JVD Chest: normal inspection of chest Abdomen/GI: normal bowel sounds, soft, nontender, no hepatosplenomegaly Extremities/Musculoskeletal: no cyanosis or clubbing, extremities motor strength 5/5 Neurologic: PERRL, EOMI, accommodation nl, no face palsy, no dysarthria, CN's II-XI intact bilaterally and moves all extremities Psychiatric: A+Ox3, euthymic affect Skin: no rashes, normal color, warm/dry Principal Diagnosis Acute hypoxic respiratory failure Acute diastolic heart failure CHRIS, required dialysis Bradycardia Discharge Exam Constitutional: WD/WN M in NAD HEENT: NC/AT. Mucous membranes moist. hemodialysis catheter removed Lungs: Decreased breath sounds, CTAB, no wheezes CV: S1-S2, regular Abdomen: Soft, nontender, nondistended Extremities: No significant edema, moves extremities Neuro: awake, alert, speech fluent, answers appropriately, moves extremities, No focal deficits Psych: Cooperative, normal mood Discharge Data Allergies Allergy/AdvReac Type Severity Reaction Status Date / Time No Known Allergies Allergy Verified 09/13/24 13:01 Consultations 09/13/24 13:25 ED Decision to Admit Stat 09/13/24 15:17 Consult Cardiology Routine 09/15/24 08:46 Consult Pulmonology Routine 09/15/24 08:48 Consult Nephrology Routine Ordered Studies 09/13/24 11:00 CT angio chest PE protocol Stat FINDINGS: There is cardiomegaly with prominence of the pulmonary vasculature consistent with CHF. There is minimal septal thickening in the lungs consistent with trace pulmonary edema. There is mild stranding consolidation in the dependent lung bases, atelectasis versus early pneumonia. No pleural effusion or pneumothorax. There is minimal mediastinal adenopathy, likely reactive. No pericardial effusion. There are diffuse coronary artery and aortic calcifications. No thoracic aortic aneurysm or dissection. No pulmonary embolism. There is moderate elevation of the right hemidiaphragm. There are diffuse thoracic spine degenerative changes. IMPRESSION: 1. No pulmonary embolism. 2. CHF with trace pulmonary edema. 3. Atelectasis versus early pneumonia in the lung bases. No significant pleural effusion. Hospital Course (1) Acute hypoxic respiratory failure: (2) Acute kidney injury (CHRIS) with acute tubular necrosis (ATN): (3) Acute heart failure with preserved ejection fraction: (4) Bradycardia: (5) Nonsustained ventricular tachycardia: (6) Acute aspiration pneumonitis: (7) Acute bronchitis: (8) Pulmonary hypertension: (9) Tracheobronchomalacia: (10) Hyperkalemia: (11) Suspected chronic obstructive pulmonary disease based on initial evaluation: (12) DM (diabetes mellitus), type 2: (13) Moderate aortic stenosis: (14) Smoking history: (15) LBBB (left bundle branch block): Plan Patient with acute hypoxic respiratory failure possibly due to heart failure preserved ejection fraction as well as acute ATN requiring temporary hemodialysi s. Renal function has continued to improve while holding hemodialysis - hemodialysis catheter now removed. Current Creatinine down to 1.4 Per nephrology - have BMP checked by PCP as outpt - contact nephrology as needed Patient completed course of antibiotics for possible aspiration pneumonia. Pulmonary medicine was consulted - suspect the patient may have a degree of tracheobronchial malacia given the sound of his cough. Dynamic CT scanning or bronchoscopy could be considered to verify the diagnosis. Treatment would be weight loss and avoiding steroids. Positive airway pressure may be a consideration. Would recommend outpatient polysomnography to see if he qualifies for CPAP or BiPAP machine. 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 Treatment with antihistamines, decongestants, saline sinus irrigation, topical nasal steroids would be recommended. Pt now weaned off oxygen. On RA and saturating 94%. 2 step sudy done today - pt does not qualify for suppl. oxygen. Patient with bradycardia intermittently. Cardiology following - considered pacemaker but now bradycardia seems to be resolved perhaps after hemodialysis catheter was removed. Will need zio patch as outpt, cardiology follow up. Continue to avoid any AV naomi blocking agents. Recommend to monitor BP as outpt. Total Time Total Time Spent Total Time Spent (In Minutes): 40 Discharge Plan Discharge Items Patient Disposition: Home - Self-Care Reason For Visit: ACUTE HYPOXIC RESP FAILURE, CHF. ? PNA Discharge Diagnosis: Acute hypoxic respiratory failure Acute diastolic heart failure CHRIS, required dialysis Bradycardia Activity: Per Instructions section Non-emergency contact: Primary Care Provider and Specialist Call non-emergency contact if: you have any medication questions and your symptoms worsen Follow-up/Referrals: Abhishek Quintero MD [Primary Care Provider] - (Date & Time 09/27/2024 11:20 AM Provider: Abhishek Quintero MD General Internal Medicine [facility] ) Diet: Carb Consistent or DM2 and Heart Healthy Addtl Attending Provider Instructions: Follow up with primary care physician within 1-2 weeks. The appointment was scheduled for you for 09/27/2024. You will need telemetry monitor - zio patch - this is will be set up for you as outpatient. You will need to follow up with cardiology. You will need blood work - BMP - to check on your kidney function - your primary care doctor can order that. It is also recommended that you have a sleep study done as outpatient. You may need to follow up with a furnace charging machine operator. For now, do not take amlodipine and propranolol. Monitor your blood pressure and record your numbers. Discuss with your health care providers if/when you can resume these medications. Pending Studies at Discharge: No Stand-Alone Forms: My [facility] [employer], Smoking Cessation Medications and DC Order Prescriptions: New Saline Mist 0.65 % Aerosol,[place] 1 spray NA PRN PRN (Reason: nasal congestion) Qty: 44 0RF guaifenesin [Mucinex] 600 mg Tablet Extended Release 12hr 1,200 mg PO Q12 Qty: 10 0RF Continued clopidogrel [Plavix] 75 mg tablet 75 mg PO HS aspirin 81 mg tablet,delayed release (DR/EC) 81 mg PO DAILY acetaminophen [Tylenol Arthritis Pain] 650 mg tablet extended release 650 mg PO Q8H PRN (Reason: Pain) lisinopril-hydrochlorothiazide [Zestoretic] 20-12.5 mg tablet 1 tab PO DAILY allopurinol 300 mg tablet 300 mg PO DAILY famotidine 20 mg Tablet 20 mg PO BID rosuvastatin 40 mg tablet 40 mg PO DAILY Held propranolol 10 mg tablet 10 mg PO DAILY PRN (Reason: Tremors) Hold Instructions: Resume on 09/28/24. until discussed w/ wood finisher or your primary care doctor Rx Instructions: take 1 tab by mouth 30 minutes prior to event, up to 3 tablets daily amlodipine 10 mg tablet 10 mg PO DAILY Hold Instructions: Resume on 09/28/24. until seen by your wood finisher/ or primary care doctor Discharge Orders: Discharge Order- CHF (Routine); Ordered 09/21/24 Ordered By: Prosper Bedolla/Other Patient Handouts: Managing Type 2 Diabetes Admission Data Admit Date/Time: 09/13/24 13:46 Attending Provider: Prosper Steel Admit Provider: Moe Escalera Primary Care Provider: Abhishek Quintero Other Providers: Moe Escalera; Mark Fisher,Quoc; Patrice Byrd; Gerald Holman L
[2024-09-21 13:12] VITALS: PULSE 67; RESP 19; O2SAT 91
== END 2024-09-21 13:50 | disposition home or self-care (01) | DRG 291 ==
LOC: ED 09:44 → EDINP 13:46 → SUATTDRO 13:46 → 2E 14:58